=== PATIENT | male | born 1975 | race Caucasian/White ===

== ENCOUNTER → 2018-01-08 12:06 | Outpatient (CLI) | payer BC, SELFPAY ==
[2018-01-08 14:25] LABS: Hematocrit 42.1 % (40-54); Hemoglobin 14.2 g/dl (13.0-16.5); Mean Corp Hgb Conc 33.7 g/gl (32-36); Mean Corpuscular Hgb 29.2 pg (27.0-32.0); Mean Corpuscular Volume 86.6 fL (80-94); Mean Platelet Vol. 10.5 fl (6.2-12.0); Platelet Count 253 K/mm3 (150-450); RBC Distribution Width CV 14.5 % (11.6-14.6); RBC Distribution Width SD 46.1 fl (35.1-43.9); Red Blood Count 4.86 M/mm3 (4.6-6.2)
[2018-01-08 14:26] LABS: Scan Indicated on CBC? Y/N NO
[2018-01-08 14:49] LABS: ALB/GLOB Ratio 1.3 RATIO (0.9-2.4); AST(SGOT) 15 U/L (15-37); Alanine Aminotransfer ALT/SGPT 30 U/L (16-61); Albumin, Serum 3.3 g/dL (3.2-5.0); Alkaline Phosphatase 45 U/L (45-117); Anion Gap 7 (5-15); BUN 22 mg/dL (7-18); BUN/Creat Ratio 13.3 RATIO (10-20); Calcium,Total 8.4 mg/dL (8.5-10.1); Chloride 102 mmol/L (98-107); Creatinine, Serum 1.65 mg/dL (0.70-1.30); EST Glomerular Filtration Rate 49 mL/min (>60); Est Glom Filt Rate - Afr Amer 59 mL/min (>60); Free T3 2.8 pg/mL (2.18-3.98); Globulin 2.6 g/dL (2.2-4.2); Glucose 92 mg/dL (74-106); Potassium 3.7 mmol/L (3.5-5.1); Protein, Total 5.9 g/dL (6.4-8.2); Sodium Level 138 mmol/L (136-145); Thyroid Stim Hormone (TSH) 2.38 uIU/mL (0.358-3.74)
== END ==
PROVIDERS: Family Provider Family Medicine; PCP Family Medicine; Visit Provider Family Medicine
DX: I10 Essential (primary) hypertension (principal); E03.9 Hypothyroidism, unspecified
CPT/HCPCS: 36415; 80053; 84439; 84443; 84481; 85027

== ENCOUNTER → 2018-01-30 10:02 | Outpatient (CLI) | payer BC, SELFPAY ==
--- NOTE | 2018-01-30 10:08 | ECHOD_ITS ---
Reason For Study: EDEMA Procedure This was a 2D Doppler, Color Flow transthoracic echocardiogram. The exam was of fair technical quality due to body habitus. Exam performed in department. Left Ventricle Normal LV size. Left ventricular systolic function is normal. The estimated ejection fraction is 65 %. Normal diastology for age. No regional wall motion abnormalities noted. Right Ventricle Normal RV size. Normal systolic function. Atria Normal left atrium. Normal right atrium. No doppler evidence for ASD. Mitral Valve There is no mitral annular calcification. Normal mitral valve. Trivial mitral valve insufficiency. Tricuspid Valve Normal tricuspid valve. Trivial tricuspid valve insufficiency. Right ventricular systolic pressure estimated to be 28 mmHg. Aortic Valve Trisinus/trileaflet aortic valve. Normal aortic valve. Pulmonic Valve The pulmonic valve is not well visualized. Great Vessels Normal sized aortic root. Pericardium/Pleural No pericardial effusion. MMode/2D Measurements & Calculations LVIDd: 4.8 cm IVSd: 1.1 cm Ao root diam: 3.1 cm LVIDs: 3.1 cm LVPWd: 1.0 cm RVDd: 3.5 cm FS: 35.0 % LAV(MOD-bp): 28.9 ml EDV(MOD-sp4): 87.9 ml SV(MOD-sp4): 57.0 ml LAV(MOD-bp) Indexed: 12.5 ml/m2 ESV(MOD-sp4): 30.9 ml LAV(MOD-sp2): 33.7 ml EF(MOD-sp4): 64.9 % LAV(MOD-sp4): 23.9 ml LA A4 area: 12.4 cm2 RA A4 area: 10.7 cm2 Time Measurements MV dec time: 0.23 sec Doppler Measurements & Calculations MV E max flakito: 97.5 cm/sec Lat Peak E' Flakito: 15.7 cm/sec Med Peak E' Flakito: 10.7 cm/sec MV A max flakito: 77.5 cm/sec E/E' lat: 6.2 E/E' med: 9.1 MV E/A: 1.3 Ao V2 max: 148.1 cm/sec LV V1 max: 126.2 cm/sec PA V2 max: 140.1 cm/sec Ao max P.8 mmHg LV V1 max P.4 mmHg TR max flakito: 250.9 cm/sec TR max P.3 mmHg Interpretation Summary Left ventricular systolic function is normal. The estimated ejection fraction is 65 %. Trivial mitral valve insufficiency. Trivial tricuspid valve insufficiency. Right ventricular systolic pressure estimated to be 28 mmHg. Normal diastology for age. Ordering Physician: Garret Martínez Referring Physician: vEer Martínez Performed By: Kacy Louis RDCS
== END ==
PROVIDERS: Family Provider Family Medicine; PCP Family Medicine; Visit Provider Family Medicine
DX: R60.0 Localized edema (principal)
CPT/HCPCS: 93306

== ENCOUNTER → 2018-07-22 11:30 | Outpatient (CLI) | payer BC, SELFPAY ==
[2018-07-22 14:37] LABS: Vitamin D,25 Hydroxy 62.1 ng/mL (29.95-100.01)
[2018-07-22 14:40] LABS: Anion Gap 9 (5-15); BUN 25 mg/dL (7-18); BUN/Creat Ratio 16.1 RATIO (10-20); Chloride 104 mmol/L (98-107); Cholesterol 139 mg/dL (200); Creatinine, Serum 1.55 mg/dL (0.70-1.30); EST Glomerular Filtration Rate 52 mL/min (>60); Est Glom Filt Rate - Afr Amer 63 mL/min (>60); Glucose 103 mg/dL (74-106); High Density Lipoprotein 47 mg/dL; Potassium 4.4 mmol/L (3.5-5.1); Sodium Level 135 mmol/L (136-145); Thyroid Stim Hormone (TSH) 0.69 uIU/mL (0.358-3.74); Triglycerides 128 mg/dL; Very Low Density Lipoprotein 26 mg/dL (5-40)
== END ==
PROVIDERS: Family Provider Family Medicine; PCP Family Medicine; Visit Provider Family Medicine
DX: I10 Essential (primary) hypertension (principal); E03.9 Hypothyroidism, unspecified; E55.9 Vitamin D deficiency, unspecified
CPT/HCPCS: 36415; 80048; 80061; 82306; 84443

== ENCOUNTER 2019-01-01 06:34 | Day surgery (SDC) | payer BC, SELFPAY ==
[2019-01-01 07:08] VITALS: BP 114/78; PULSE 77; RESP 18; TEMP 36.5; O2SAT 95; BMI 37.9
--- NOTE | 2019-01-01 07:48 | OP.PCM_ITS ---
Problem List (1) Disorder of both eustachian tubes Status: Chronic (2) Chronic serous otitis media of left ear Status: Chronic (3) Conductive hearing loss in left ear Status: Chronic Report of Operation Date of Procedure: 01/01/19 Pre-Operative Diagnosis: chronic serous effusion left ear with conductive hearing loss, ET dysfunction Post-Operative Diagnosis: same Surgery/Procedure Performed:: Bilateral t-tube placement Description of Surgical Findings:: Carson is a 43-year-old male with long-standing history of eustachian tube dysfunction and recurrent middle ear effusions. This is been successfully treated in the past with myringotomy tube placement. Since the loss of the tube on the left he had recurrent effusion with significant conductive hearing loss. Examination showed a retained T-tube in the right side with significant debris and crusting and replacement with bilateral T tubes was offered in hopes of long-term relief of his chronic middle ear disease. The risks, alternatives, potential complications, and benefits were discussed at length and any questions answered to the patient and/or caregiver's satisfaction. Witnessed informed consent was obtained in the office, and the patient and/or caregiver was agreeable to proceed. Procedure went as follows: The patient was identified in the preoperative holding and brought to the operating room, and placed under general anesthesia. When appropriate anesthesia was obtained, the operative microscope was brought into the field and beginning on the right side the external auditory canal and tympanic membrane visualized. This is noted to be with the retained Silastic T- tube. This was then withdrawn with an alligator forceps and replaced with a fresh Mikhail ET tube. On the left side there is noted to be an opacified tympanic membrane. A myringotomy was then placed and serous effusion aspirated from the middle ear cleft. Again a T-tube was then placed. The patient was then returned to anesthesia, revived and returned to recovery without complication. Type of Anesthesia:: Sedation,Conscious Anesthesiologist: Jose Argueta Special Medications: none Specimen's removed: none Drains: none Estimated Blood Loss (mL): 0 mL Fluids Replaced: 0 mL Grafts/Implants Used: T-tubes - Complications none - Admit VTE Documentation VTE Present on Admission: No VTE Mechan Device Prophylaxis: SCD's, None VTE Pharm Prophylaxis ordered?: No
--- NOTE | 2019-01-01 07:55 | DCINST_ITS ---
Discharge Diet: No Restrictions Discharge Activity: Return to Normal Activity Call your doctor if your incision/area has: Continuous Slow Oozing Call your doctor if you observe: Fever of 101 or Higher, Uncontrolled pain Allergies/Adverse Reactions: Allergies No Known Allergies Allergy (Verified 12/28/18 10:51) Medications to take at Discharge Buprenorphine HCl/Naloxone HCl [Suboxone 2 mg-0.5 mg Sl Film] 1 each SL DAILY 12/28/18 Fenofibrate,Micronized [Fenofibrate] 134 mg PO DAILY 12/28/18 RX: Ibuprofen 1 - 2 tab PO DAILY 12/28/18 RX: Lisinopril 40 mg PO DAILY 12/28/18 RX: Omeprazole 40 mg PO QHS 12/28/18 RX: Tizanidine HCl [Zanaflex] 4 mg PO QHS 12/28/18 RX: traZODone [Desyrel] 50 mg PO QHS 12/28/18 Primary Care Physician: Ever Martínez MD [Primary Care Provider] - Test Results: Test results from this visit will be discussed in further detail at your follow- up appointment, if applicable. Please Follow Up With: Onofre Lyn MD When: 2 weeks
[2019-01-01] MEDS: Oxymetazoline 0.05% 1 SPRAY SPRAY.BTL 15 SPRAY (08:01)
[2019-01-01 08:12] VITALS: BP 114/78; BP 120/59; PULSE 85; RESP 16; TEMP 36.2; O2SAT 94
[2019-01-01 08:29] VITALS: BP 113/67; BP 114/78; PULSE 80; RESP 16; O2SAT 96
[2019-01-01 08:35] VITALS: BP 102/79; BP 114/78; PULSE 80; RESP 16; TEMP 35.9; O2SAT 95
[2019-01-01 08:52] VITALS: BP 114/78
== END 2019-01-01 08:55 | disposition home or self-care (01) ==
LOC: SDC 06:41 → AC 06:42
PROVIDERS: Family Provider Family Medicine; PCP Family Medicine; Referring Provider Otolaryngology; Visit Provider Otolaryngology
PROC: (CPT 69436; principal; 2019-01-01 07:55)
DX: H65.22 Chronic serous otitis media, left ear (principal); H90.72 Mixed conductive and sensorineural hearing loss, unilateral, left ear, with unrestricted hearing on the contralateral side; H69.93 Unspecified Eustachian tube disorder, bilateral; F17.200 Nicotine dependence, unspecified, uncomplicated; I10 Essential (primary) hypertension; E78.00 Pure hypercholesterolemia, unspecified; K21.9 Gastro-esophageal reflux disease without esophagitis; Z79.899 Other long term (current) drug therapy
CPT/HCPCS: 00126; 69436; J7120; J2405

== ENCOUNTER → 2019-04-15 08:21 | Outpatient (CLI) | payer BC, SELFPAY ==
[2019-02-25 14:33] VITALS: BMI 38.7
--- NOTE | 2019-04-15 08:22 | RAD_ITS ---
Under fluoroscopic control and following appropriate aseptic preparation and local anesthesia, a 22-gauge spinal needle was used to enter the hip joint but unfortunately failed ,as contrast obscured the area so this is to be rescheduled at a later time. Electronically Signed: Adolph Juarez, at 15:12 EDT Tel , Service support , RAD/Inj/Asp Mal Jt Should/Hip/Knee
== END ==
PROVIDERS: Family Provider Family Medicine; PCP Family Medicine; Referring Provider Orthopaedic Surgery; Visit Provider Orthopaedic Surgery
DX: M87.051 Idiopathic aseptic necrosis of right femur (principal); Z53.09 Procedure and treatment not carried out because of other contraindication
CPT/HCPCS: 20610; 77002; J0702

== ENCOUNTER 2019-06-02 05:38 | Observation (INO) | payer BC, SELFPAY ==
[2019-02-25 14:33] VITALS: BMI 38.7
--- NOTE | 2019-05-18 21:50 | PCM.HP.BLA ---
History and Physical Patient Name: Cedric Del Toro : 1975 From: EVI KELLY PA-C DATE OF SURGERY: 06/02/2019 SCHEDULED PROCEDURE: right total hip arthroplasty HISTORY OF PRESENT ILLNESS: Preoperative history and physical exam was performed on May 17, 2019. This is a 44-year-old male who has been having ongoing pain for the past 3-4 months which has progressively been getting worse. He does complain of bilateral hip pain. Patient states his pain is constant, sharp, stabbing. Pain is increased with stairs, driving, walking, and working. Patient has tripped/stumbled secondary to bilateral hip pain. Patient has tried rest, ice, heat, elevation with no relief. Patient has tried physical therapy, home exercises, and managed care manager with no relief in symptoms. Patient denies previous surgery on bilateral hips. Denies any recent fevers, chills, recent infections. Patient has also tried prednisone with no relief as well as ibuprofen. Patient did have an MRI which does show bilateral hip avascular necrosis. After discussion with Dr. Geovanni Berry, the patient does wish to proceed with a right total hip arthroplasty. We are obtaining surgical clearance from patient's primary care physician. Patient has a medical history pertinent for hypertension and fibromyalgia. He also has previous history with form or illegal drug using pain pills. Patient currently sees Dr. Ferguson and is currently on Suboxone. We are in contact with patient's physician with regards to postoperative pain management. REVIEW OF SYSTEMS: ROS: Const: Reports weight change, but denies change in appetite and fever. CV: Denies chest pain, heart murmur and irregular heartbeat. Resp: Denies cough, pneumonia, shortness of breath, tuberculosis and wheezing. GI: Denies constipation, diarrhea, heartburn, nausea, rectal itching, bloody stools and vomiting. : Denies incontinence. Musculo: Reports leg swelling, pain, trouble walking and weakness. Skin: Denies Raynaud's, history of shingles and tattoo. Neuro: Reports ambulatory dysfunction and numbness/tingling but denies dizziness and tremor. Psych: Reports insomnia and stress, but denies anxiety. Onofre/Lymph: Denies anemia, bleeding/bruising tendency and past transfusion. Reviewed, no changes. PAST MEDICAL HISTORY: Advance Care Plan: No Advance Directives Effective Date: 03/30/2019 PMH: Medical Problems: Arthritis, Fibromyalgia, High Blood Pressure, Hypercholesterolemia Accidents: None Surgical Hx: RT Shoulder Rotator Cuff Repair - (2012) RT Forearm ORIF Anesthesia Complications: None Assistive Devices: Contacts, Glasses Reviewed and updated. 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 Personal Habits: Cigarette Use: Light tobacco smoker (10 or fewer cigarettes/day).Smokeless Tobacco: Never Used Smokeless Tobacco.E-Cigarette Use: Never used.Alcohol: Denies use.Drug Use: Former Illegal Drug User - pain pills .Enjoy Exercising: Exercises 1-3 X/Week. Reviewed, no changes. VITALS: Ht: 70 Wt: 257lb Wt k.575 BMI: 36.9 BP: 134/92 Pulse: 80 T: 96.9 T: 36.1C ALLERGIES: No Known Drug Allergy MEDICATIONS: Promethazine HCL 12.5 mg 1-2 tablets by mouth every 6 hours, Famotidine 20 mg 1 by mouth every day, Celebrex 200 mg 1 by mouth every 12 hours with food, Ibuprofen 800 mg 1 by mouth prn, Lisinopril 40 mg 1 by mouth every day, Fenofibrate Micronized 134 mg 1 daily, Cyclobenzaprine HCL 10 mg 2 daily, Trazodone HCL 50 mg 1 tab by mouth daily, Suboxone 2-0.5 mg daily PRE-OP EXAM: General appearance:NORMAL Other: Eyes: Conjunctivae and lids: NORMAL Pupils: ERR Ears, Nose, Mouth, and Throat: NORMAL Other: Inspection of lips, teeth and gums: NORMAL Other: Neck: Examination of neck: no masses noted. Respiratory: Assessment of respiratory effort: NORMAL Other: Auscultation of lungs: clear to auscultation no wheezes, rhonchi or rales. Cardiovascular: Auscultation of heart: regular rate and rhythm, no murmurs, gallops or rubs. Gastrointestinal: Exam of abdomen: soft, nontender, nondistended bowel sounds present. PHYSICAL EXAMINATION: Patient walks with an antalgic gait. Patient has increased pain with range of motion of the right hip which does increase his groin pain. This is appreciated on passive range of motion. Patient does complain of pain with weightbearing. Hip flexion 90. Sensation intact to light touch. Neurovascularly intact. IMAGING STUDIES: MRI was obtained at [facility] [place] on April 06, 2019 which did reveal bilateral hip avascular necrosis with the right being greater than the left. IMPRESSION: 1. Bilateral hip avascular necrosis 2. Hypertension 3. Fibromyalgia 4. Hypercholesterolemia 5. History of illegal drug use with pain pills: Currently on Suboxone PLAN: Dr. Geovanni Berry did discuss and review with the patient all treatment options including surgical versus nonsurgical options. Patient does wish to proceed with the above-stated procedure. Potential risks, benefits, and complications of the procedure were discussed in detail including but not limited to , infection, nerve and blood vessel damage, persistent pain, numbness, tingling, paresthesias, blood clot, pulmonary embolism, and requirement for possible further surgery. The patient expressed full understanding and has no further questions for the doctor. Patient does agree to proceed with the above-stated procedure and has signed the surgery consent form. We are obtaining surgical clearance from the primary care physician. We are also in discussion with patient's physician who manages the Suboxone as far as postoperative pain management. This dictation was created using voice recognition software. Phonetic and/or grammatical errors may exist.. ___ I have re-examined the patient. There are no clinical changes since date of exam. ___ See progress notes for changes. ___ Dictated on admission Date: Time: Signature:
[2019-05-20 15:29] VITALS: BP 123/80; PULSE 80; RESP 16; TEMP 36.1; O2SAT 97; BMI 36.3
--- NOTE | 2019-05-20 15:53 | SDCEKG_ITS ---
Test Reason : Blood Pressure : / mmHG Vent. Rate : 082 BPM Atrial Rate : 082 BPM P-R Int : 156 ms QRS Dur : 086 ms QT Int : 360 ms P-R-T Axes : 016 033 056 degrees QTc Int : 420 ms Normal sinus rhythm Normal ECG Confirmed by GLEN GARCIA, SHILPI ([id number]), editor continuity and script BRANDY HIGUERA ([id number]) on 05/24/2019 1:07:32 PM Referred By: Geovanni Berry Confirmed By:AKILA CARROLL MD
[2019-05-20 16:31] LABS: Absolute Lymphocyte Count 2.93 X10^3/uL (0.83-4.51); Absolute Neutrophil Count 4.6 X10^3/uL (2.0-7.7); Basophil# 0.03 X10^3/uL; Basophil% 0.4 % (0-1); Eosinophil# 0.08 X10^3/uL; Hematocrit 47.2 % (40-54); Hemoglobin 16.3 g/dL (13.0-16.5); Lymphocyte # 2.93 X10^3/ul (4.0); Mean Corp Hgb Conc 34.5 g/dL (32-36); Mean Corpuscular Hgb 29.4 pg (27.0-32.0); Mean Platelet Vol. 9.9 fl (6.2-12.0); Monocyte# 0.72 X10^3/uL; Monocyte% 8.6 % (0-10); NRBC Flagged by Analyzer 0 % (0-5); Neutrophil # 4.59 X10^3/uL (2.7-7.7); Neutrophil % 54.9 % (47-70); Platelet Count 307 K/mm3 (150-450); RBC Distribution Width CV 12.8 % (11.6-14.6); RBC Distribution Width SD 39.5 fl (35.1-43.9); Red Blood Count 5.55 M/mm3 (4.6-6.2); White Blood Count 8.4 K/mm3 (4.4-11.0)
[2019-05-20 16:55] LABS: Anion Gap 9 (5-15); BUN 28 mg/dL (7-18); BUN/Creat Ratio 15.9 RATIO (10-20); Calcium,Total 9.6 mg/dL (8.5-10.1); Chloride 103 mmol/L (98-107); Creatinine, Serum 1.76 mg/dL (0.70-1.30); EST Glomerular Filtration Rate 45 mL/min (>60); Est Glom Filt Rate - Afr Amer 55 mL/min (>60); Estimated Creatinine Clearance 55.88 ml/min; Glucose 101 mg/dL (74-106); Potassium 4.3 mmol/L (3.5-5.1); Sodium Level 140 mmol/L (136-145)
--- NOTE | 2019-05-28 11:34 | CASEMGMT ---
Call placed to patient to discuss discharge needs after upcoming surgery. Patient plans to return home and will have assistance most of the time but not all of the time. Patient has outpatient physical therapy set up at [facility], will ask mother about assistance with transportation to/from PT. Patient does not have a walker, toilet riser, shower seat, or grab bars yet. Patient does not have a bedroom/bathroom on the 1st level of the home. There are approximately 3 steps to enter home. Informed patient that RN-CM will likely follow up after surgery to further assist with discharge planning. Barbie Moss LPN Clinical Support
[2019-06-02] VITALS (17 sets, daily range): BP systolic 115–145; BP diastolic 60–104; PULSE 70–86; RESP 14–18; TEMP 36.1–37; O2SAT 95–100; BMI 36.3
[2019-06-02] MEDS: Magnesium Sulfate 4gm/100mL 4 GM/100 ML IV.SOLN. IV (06:35)
[2019-06-02] MEDS: Acetaminophen 500 MG Tablet 1000 MG PO ×3 (06:35→21:51)
[2019-06-02] MEDS: Gabapentin 600 MG Tablet PO (06:36)
[2019-06-02] MEDS: Celecoxib 200 MG Capsule 400 MG PO (06:37)
[2019-06-02] MEDS: Scopolamine 1mg/72hr Patch 1 PATCH TRANSDERM. (06:38)
[2019-06-02] MEDS: Lactated Ringers 1,000 ML 999 ML IV (07:10)
--- NOTE | 2019-06-02 07:30 | HIP_PTH ---
PATIENT: YURI LANDERS Jr. LOC: MS3 U#:[id number] AGE/SX: 44/M ROOM: NE324 RE06/02/[address]: Dr. Geovanni Berry MD : 1975 BED: 1 DIS: 06/03/2019 SPEC #: [id number] RECD: 06/02/19 11:07 STATUS: YAMIL REEmerson #: [id number] JOSE A: 06/02/19 07:[address]: Geovanni Berry DEPT: SURGICAL PATHOLOGY RECD BY: Noah Gomez ENTERED: 06/02/19 13:09 SP TYPE: TOTAL HIP OTHR DR: Dr. Garret Martínez MD Tissues: Hip, NOS Procedures: Decalcification bone/plaque Surgery Specimen Level IV HEADER OPERATION: ERAS, total hip anterior approach PRE-OP DIAGNOSIS: Bilateral hip avascular necrosis TISSUE SUBMITTED: Femoral head MICROSCOPIC DIAGNOSIS Femoral head, total hip replacement/resection: Femoral head with focal changes consistent with avascular necrosis. LINDA:lauryn 06/07/19 MICROSCOPIC DESCRIPTION Slides are reviewed. GROSS DESCRIPTION Received in fixative is one container labeled with the patient's name and designated femoral head. The specimen consists of a previously bisected femoral head measuring 5 x 4 x 4.5 cm. The articular surface is smooth. The resection margin is slightly irregular. The cut surface of femoral head shows a nicole-whitish area almost occupying 90% of the cut surface consistent with avascular necrosis. Also present in the container is a detached piece of bone consistent with femoral neck measuring 3.5 x 3.5 x 1 cm. Also present in the container are multiple pieces of bone reamings measuring in aggregate 6 x 6 x 2 cm. Cell Lead sections are submitted in three cassettes as follows: 1 - bone reamings, 2 & 3 - femoral head after decalcification. / LINDA:lauryn 06/02/19 TC:5 CPT: 05633, 14288
[2019-06-02] MEDS: Cefazolin 2 GM in 0.9% Normal Saline 100 ML IV (07:49)
--- NOTE | 2019-06-02 08:41 | RAD_ITS ---
STUDY: X-RAY - PELVIS AND RIGHT HIP REASON FOR EXAM: Male, 44 years old. Anterior total hip replacement. TECHNIQUE: 3 intraoperative views views of the pelvis and hip. COMPARISON: None. FINDINGS: Intraoperative imaging provided for right anterior hip replacement. There is good alignment. RAD/Hip 1 view with Pelvis IMPRESSION: Anterior hip replacement. There is good alignment. Electronically Signed: Calvin Douglas, at 15:33 EDT , Service support ,
--- NOTE | 2019-06-02 09:26 | OP.PCM_ITS ---
Report of Operation Date of Procedure: 06/02/19 Pre-Operative Diagnosis: Right hip avascular necrosis Post-Operative Diagnosis: Right hip avascular necrosis Surgery/Procedure Performed:: Right direct anterior total hip replacement Description of Surgical Findings:: Stable hip with equal leg lengths public relations officer: Li Raymond Type of Anesthesia:: Spinal Anesthesiologist: Hipolito Larry Special Medications: 2 g Ancef, 1 g TXA at incision, 1 g TXA closure, 10 mg Decadron, joint cocktail (5 mg Duramorph, 30 mL of 0.5% Ropivicaine, 1000 units of epinephrine, 30 mg of Toradol) Specimen's removed: Bony cuts Estimated Blood Loss (mL): 250 Fluids Replaced: 1300 mL crystalloid Description of Procedure: Components used: 1. Accolade 2 Black femoral stem size 7 127? 2. [place] trident 2 acetabular shell size 52 mm 3. Black X3 polyethylene E 4. [place] Biolox delta 36-mm,2.5]mm femoral head Brief history operative indications: 44 yo m who failed conservative measures for their hip osteonecrosis. MRI findings consistent with femoral head collapse. Total hip replacement was discussed with the patient with risks and benefits including but not limited to blood loss, DVTs, PEs, neurovascular damage, dislocation, general risks of anesthesia including loss of life. Patient demonstrated an understanding medical clearance is obtained the patient was consented for surgery. Procedure: On the date of procedure the patient's R hip was marked in the preoperative area. Patient was then taken back to the operating room where anesthesia assumed control of the C-spine and airway and administered anesthetic. Patient was transferred to the operating table and placed in the supine position. The hips were placed at the break of the bed and a sacral bump was placed. The R lower extremity was then prepped out in a sterile fashion using chlorhexidine while the surgeon scrubbed. The PA was vital in the positioning of the patient. Upon reentering the room the R lower extremity was draped in the standard orthopedic fashion and the incision was marked. A timeout was called and everyone agreed upon the side, the site, the procedure be performed, antibody given, and patient's identity. At this time incision was made through skin, subcutaneous tissue, and fat down to fascia. The fascia was then incised and the TFL was retracted laterally. A retractor was placed on the lateral border of the femoral neck. Attention was directed to the inferior portion of the approach and all crossing vessels were identified and appropriately coagulated. A retractor was then placed on the medial portion of the femoral neck. The ante rior capsule was then cleared of all soft tissue and then H shaped capsulotomy was made. The retractors were then placed inside the capsule. The femoral neck was identified and a cleanup cut was made. At this time a power corkscrew was used to remove the femoral head. Attention was then turned toward the acetabulum where the soft tissues were appropriately retracted and the acetabulum was sequentially reamed to 52 mm. A 52 mm cup was then selected and impacted into place. Acetabular liner was impacted into place and locking mechanism was verified. The position of the acetabular cup was then verified under live fluoroscopy. Attention was then turned to the femur. Soft tissue releases on the medial and lateral femoral neck were appropriately done, the leg was externally rotated and lateralized. A Tinoco retractor was placed medially and proximally to the greater trochanter this allowed appropriate visualization and exposure of the femoral canal. Rongeour was then used to remove excess lateral bone. A canal finder and entry broach were used to open the proximal canal. Once we verified we were down the femoral canal we subsequently broached up to a size 7 femur. The appropriate neck was placed in the previously selected head was trialed with a -2.5 mm neck. Traction was pulled and the hip was reduced with internal rotation. Once it was appropriately reduced and stability was checked. There was minimal shuck, equal leg lengths and appropriate stability with hyperextension and external rotation as well as with 90? flexion and internal rotation. Fluoroscopy was then also used to verify the position of the components and leg lengths using the contralateral side for comparison. The trial components were then dislocated the proximal femur was again exposed a nd the components were removed from the wound. The final components were verified and opened. The wound was copiously irrigated out with normal saline. The acetabulum was checked for any residual debris. The final components were placed and impacted. Traction and internal rotation were again used to reduce the hip. After adequate reduction the hip remained stable with appropriate leg lengths. The final components were once again checked with live fluoroscopy and were found to be satisfactory. The wound was then copiously irrigated with normal saline once more, and hemostasis was obtained. Closure was then done using #1 Vicryl runner to close the fascia. A 2-0 vicryl interuppted sutures were used to close the subcutaneous skin. A 3-0 Monocryl and Steri-Strips were used for final skin closure. A Silverlon dressing was placed. Patient was awakened by anesthesia and transferred to the [facility]. Patient was then transferred to the PACU for recovery. Postoperative plan: Patient will get 24 hours postop antibiotics. Patient will get in-house physical therapy and will be weight-bear as tolerated. Patient will follow up in office in 2 weeks for a wound check and x-rays. Grafts/Implants Used: Black - Complications No intraoperative complications - Admit VTE Documentation VTE Present on Admission: No VTE Mechan Device Prophylaxis: SCD's, Thigh High BASIA Hose VTE Pharm Prophylaxis ordered?: Yes
--- NOTE | 2019-06-02 10:10 | RAD_ITS ---
STUDY: X-RAY - PELVIS AND RIGHT HIP REASON FOR EXAM: Male, 44 years old. Anterior hip replacement. TECHNIQUE: 3 views of the pelvis and hip. COMPARISON: None. FINDINGS: The patient is status post right anterior hip replacement. There is good alignment. Postoperative soft tissue changes. RAD/Hip Min 2 Views (Portable) IMPRESSION: Status post anterior hip replacement. There is good alignment. Postoperative soft tissue changes. Electronically Signed: Calvin Douglas, at 15:40 EDT , Service support ,
[2019-06-02 11:33] LABS: Bedside Glucose 121 mg/dL (70-110)
[2019-06-02] MEDS: oxyCODONE 5 MG Tablet PO ×3 (11:37→21:50)
[2019-06-02] MEDS: Lactated Ringers 1,000 ML 125 ML IV (12:11)
[2019-06-02] MEDS: Morphine 2 MG/ML Syringe IV ×4 (12:16→23:51)
--- NOTE | 2019-06-02 12:51 | NURSING ---
1140-patient arrived to floor from PACU. upon wound assessment-mepilex dressing saturated with water from [facility] to end near groin. new mepilex dressing applied. steri-strips intact, no active drainage noted to incision. will monitor.
[2019-06-02] MEDS: Ketorolac 15 MG/ML Vial IV ×2 (15:23→21:50)
[2019-06-02] MEDS: Ensure Surgery 237 ML LIQUID PO (17:18)
[2019-06-02] MEDS: Aspirin 81 MG TAB.CHEW PO (17:19)
[2019-06-02] MEDS: Cefazolin 1 GM/50 ML BAG IV ×2 (17:22→23:46)
[2019-06-02] MEDS: 0.9% NaCl Peripheral Flush Adult/Peds IV ×2 (21:49→23:51)
[2019-06-02] MEDS: traZODone 50 MG Tablet PO (21:52)
[2019-06-02] MEDS: Pantoprazole Sodium 40 MG Tablet PO (21:52)
[2019-06-03] MEDS: oxyCODONE 5 MG Tablet PO ×2 (02:36→06:35)
[2019-06-03 03:00] VITALS: BP 116/77; PULSE 81; RESP 18; TEMP 36.5; O2SAT 97
[2019-06-03] MEDS: Ketorolac 15 MG/ML Vial IV (03:41)
[2019-06-03] MEDS: 0.9% NaCl Peripheral Flush Adult/Peds IV ×2 (03:41→08:25)
[2019-06-03] MEDS: Acetaminophen 500 MG Tablet 1000 MG PO (05:09)
[2019-06-03 06:20] LABS: Hematocrit 37.4 % (40-54); Hemoglobin 12.9 g/dL (13.0-16.5); Mean Corp Hgb Conc 34.5 g/dL (32-36); Mean Corpuscular Hgb 29.5 pg (27.0-32.0); Mean Corpuscular Volume 85.4 fL (80-94); Mean Platelet Vol. 10.2 fl (6.2-12.0); Platelet Count 255 K/mm3 (150-450); RBC Distribution Width SD 39.8 fl (35.1-43.9); Red Blood Count 4.38 M/mm3 (4.6-6.2); White Blood Count 26.1 K/mm3 (4.4-11.0)
[2019-06-03 06:42] LABS: Anion Gap 8 (5-15); BUN 20 mg/dL (7-18); BUN/Creat Ratio 12.7 RATIO (10-20); Calcium,Total 8.8 mg/dL (8.5-10.1); Chloride 107 mmol/L (98-107); Creatinine, Serum 1.58 mg/dL (0.70-1.30); EST Glomerular Filtration Rate 51 mL/min (>60); Est Glom Filt Rate - Afr Amer 62 mL/min (>60); Estimated Creatinine Clearance 62.25 ml/min; Glucose 119 mg/dL (74-106); Potassium 4.7 mmol/L (3.5-5.1); Sodium Level 139 mmol/L (136-145)
[2019-06-03 08:20] VITALS: BP 125/80; PULSE 75; RESP 16; TEMP 36.8; O2SAT 98
[2019-06-03] MEDS: Morphine 2 MG/ML Syringe IV (08:24)
[2019-06-03] MEDS: Famotidine 20 MG Tablet PO (08:26)
[2019-06-03] MEDS: Senna/Docusate Sodium 1 Tablet 2 TABLET PO (08:27)
[2019-06-03] MEDS: Lisinopril 40 MG Tablet PO (08:27)
[2019-06-03] MEDS: Meloxicam 7.5 MG Tablet PO (08:27)
[2019-06-03] MEDS: Aspirin 81 MG TAB.CHEW PO (08:27)
[2019-06-03] MEDS: Fenofibrate 145 MG Tablet PO (08:28)
--- NOTE | 2019-06-03 08:29 | NURSING ---
Therapy came to see pt. Morphine given per pt request for 8 out of 10 pain. Pt walking to therapy at this time.
--- NOTE | 2019-06-03 09:31 | PCM.PN.ORT ---
Subjective: The patient was sitting in bedside chair upon examination. Patient denies any chest pain, shortness of breath, dizziness, lightheadedness, nausea or vomiting, or calf pain. Pain is controlled on medications. No adverse overnight events. Overall patient is doing well. Patient will be discharged home today. Patient has previous history as a former illegal drug user using pain pills. He is currently seeing Dr. Ferguson and is currently on Suboxone. Case was discussed with Dr. Ferguson and he will be managing patient's postoperative pain medications. Patient has prescription for postoperative pain control. Objective: Vital signs stable and afebrile. Patient is able to plantarflex and dorsiflex actively. Sensation is intact to light touch to saphenous, sural, superficial and deep peroneal, and tibial distribution. Dressing is clean dry and intact. Negative Homans bilaterally, negative signs and symptoms of DVT. - Physical Exam General: Alert, Oriented x3, Cooperative, No apparent distress Vital Signs Temp Pulse Resp BP Pulse Ox 98.3 F 75 16 125/80 H 98 06/03/19 08:20 06/03/19 08:20 06/03/19 08:20 06/03/19 08:20 06/03/19 08:20 Oxygen Flow Rate (L/min) 6 Oxygen Delivery Method Room Air Weight: 115.1 kg Body Mass Index (BMI) 36.3 Intake and Output for Last 24 Hours 06/01/19 06/02/19 06/03/19 23:59 23:59 23:59 Intake Total 2957 / 2957 420 / 420 Output Total 900 / 900 Balance 2056 / 2056 420 / 420 Laboratory Tests Past 24 Hrs 06/03/19 06/03/19 06:12 06:12 WBC 26.1 H RBC 4.38 L Hgb 12.9 L Hct 37.4 L MCV 85.4 MCH 29.5 MCHC 34.5 RDW Std Deviation 39.8 RDW Coeff of Lester 13.0 Plt Count 255 MPV 10.2 Sodium 139 Potassium 4.7 Chloride 107 Carbon Dioxide 24.0 Anion Gap 8 BUN 20 H Creatinine 1.58 H Estim Creat Clear Calc 62.25 Est GFR (MDRD) Af Amer 62 Est GFR (MDRD) Non-Af 51 L BUN/Creatinine Ratio 12.7 Glucose 119 H Calcium 8.8 POC Glucose 06/02/19 06:20 POC Glucose 121 H Medical Necessity - Tobacco Use Smoking Status: Current every day smoker Tobacco Use: Cigarettes Assessment/Plan All Active Problems (Last Reviewed 03/23/19 @ 15:39 by Cristine Lyn) Segmental and somatic dysfunction of thoracic region (Acute) Segmental and somatic dysfunction of pelvic region (Acute) Segmental and somatic dysfunction of lumbar region (Acute) 1. S/P right total hip arthroplasty direct anterior approach POD #1 2. Continue Pain Medications: Currently Tylenol and OxyIR. Patient is on Suboxone and is currently managed by Dr. Ferguson area 3. DVT Prophylaxis: Aspirin 81 mg twice daily for 4 weeks postoperatively 4. PT/OT: Weightbearing as tolerated 5. H & H: 12.9/37.4, asymptomatic 6. Reactive leukocytosis: Currently 26.1, afebrile. Patient did receive Decadron intraoperatively. No history of diabetes. 7. Encouraged Incentive Spirometry 8. Disposition: Orthopedically stable, plan will be for discharge home today. Prescriptions will be attached to chart. Patient will follow Dr. Ferguson with regards to his postoperative pain medications. This was discussed with Dr. Thomas prior to surgery and he has already given patient prescriptions. Patient will follow-up per postop instructions. Outpatient physical therapy is established.
--- NOTE | 2019-06-03 09:42 | DCINST_ITS ---
Discharge Diet: No Restrictions Discharge Activity: May Not Drive - while taking narcotic pain medications. May shower in (days): 1 - Turn dressing away from water Ice area for (Minutes): 20 - Every 1-2 hours while awake Weight Bearing Status: Weight bearing as tolerated Elevate: Operative Extremity Additional Activity Instructions:: Wear elastic stockings for 2 weeks. DO NOT use alcohol with narcotic pain medication. DO NOT make important decisions while taking narcotic medication. If you have problems with taking your medication (rash, itching, nausea, etc.) call the office at once. Call your doctor if your incision/area has: Increased Pain/ Swelling, Increased Redness, Foul Smelling Discharge Call your doctor if you observe: Fever of 101 or Higher Remove Dressing in (days):: 4 - Okay to remove dressing on June 07, 2019 Additional Instructions: Follow [facility] postop instructions Pain medications: Please contact Dr. Ferguson for any pain medications postoperatively. Allergies/Adverse Reactions: Allergies No Known Allergies Allergy (Verified 05/20/19 15:24) Medications to take at Discharge Buprenorphine HCl/Naloxone HCl [Suboxone 2 mg-0.5 mg Sl Film] 1 each SL DAILY 12/28/18 Fenofibrate,Micronized [Fenofibrate] 134 mg PO DAILY 12/28/18 Lisinopril 40 mg PO DAILY 12/28/18 Omeprazole 40 mg PO QHS 12/28/18 Tizanidine HCl [Zanaflex] 4 mg PO QHS 12/28/18 traZODone [Desyrel] 50 mg PO QHS 12/28/18 Ergocalciferol [Vitamin D] 50,000 unit PO Q7D 05/20/19 Acetaminophen [Tylenol] 1,000 mg PO Q8 14 Days tablet 06/03/19 Aspirin [Aspirin, Baby] 81 mg PO BIDCM #60 tab.chew 06/03/19 Meloxicam [Mobic] 7.5 mg PO BID #60 tab 06/03/19 The following prescriptions were given: Aspirin [Aspirin, Baby] 81 mg PO BIDCM #60 tab.chew Prescription Printed Meloxicam [Mobic] 7.5 mg PO BID #60 tab Prescription Printed Primary Care Physician: Ever Martínez MD [Primary Care Provider] - Test Results: Test results from this visit will be discussed in further detail at your follow- up appointment, if applicable. Please Follow Up With: physical Therapy When: 06/07/19 Please Follow Up With: Jackson Avalos PA-C When: 06/16/19 @ 10:30 am
== END 2019-06-03 09:59 | disposition home or self-care (01) ==
LOC: ACINP 06-04 09:10 → MS3 06-04 09:15
PROVIDERS: Admitting Provider Specialist; Family Provider Family Medicine; PCP Family Medicine; Referring Provider Specialist; Visit Provider Specialist
PROC: (CPT 27284; principal; 2019-06-02 07:05)
DX: M87.88 Other osteonecrosis, other site (principal); I10 Essential (primary) hypertension; M79.7 Fibromyalgia; E78.00 Pure hypercholesterolemia, unspecified; Z79.891 Long term (current) use of opiate analgesic; Z79.899 Other long term (current) drug therapy; F17.210 Nicotine dependence, cigarettes, uncomplicated; F45.0 Somatization disorder
CPT/HCPCS: 01214; 27130; 36415; 73501; 73502; 76000; 80048; 82962; 85025; 85027; 87081; 88305; 88311; 93005; 96361; 96365; 96366; 96375; 96376; 97110; 97161; 97166; 97530; 99218; 99251; 99406; C1776; J7120; A4216; G0378; G0463

== ENCOUNTER → 2020-07-18 16:23 | Outpatient (CLI) | payer OTHER, SELFPAY ==
[2020-06-12 17:09] VITALS: BMI 36.3
--- NOTE | 2020-07-18 16:24 | MRI_ITS ---
STUDY: MRI LUMBAR SPINE WITHOUT CONTRAST REASON FOR EXAM: Male, 45 years old. Low back pain, right leg and buttock pain TECHNIQUE: Standardized fat and water weighted pulse sequences were obtained in the sagittal and axial planes. COMPARISON: None FINDINGS: T12-L1: Normal endplates. Normal disc height, hydration and morphology. Normal bilateral facet joints. Normal central canal and bilateral lateral recesses. Normal bilateral intervertebral neural foramina. Normal lumbar lordosis. There is no substantial scoliosis. Normal conus medullaris that terminates at the L1 level. L1-2: Normal endplates. Normal disc height, hydration and morphology. Normal bilateral facet joints. Normal central canal and bilateral lateral recesses. Normal bilateral intervertebral neural foramina. L2-3: Normal endplates. Normal disc height, hydration and morphology. Normal bilateral facet joints. Normal central canal and bilateral lateral recesses. Normal bilateral intervertebral neural foramina. L3-4: No evidence of significant disc disease. Bilateral facet hypertrophy. No evidence of significant central canal or foraminal stenosis. L4-5: Bulging annulus and bilateral facet hypertrophy. Right foraminal disc protrusion with severe right and moderate left foraminal stenoses. There is mass effect on the exiting right L4 nerve root. L5-S1: No evidence of significant disc disease. Bilateral facet hypertrophy. No evidence of significant central canal or foraminal stenosis. Normal visualized sacral ala. Normal visualized paraspinous soft tissue structures. MRI/Spine Lumbar (Routine) IMPRESSION: Right foraminal disc protrusion at L4-5 with mass effect on the exiting right L4 nerve root. Electronically Signed: Aquiles Kumar MD at 17:29 EDT Tel , Service support ,
== END ==
PROVIDERS: PCP Family Medicine; Referring Provider Chiropractor; Visit Provider Chiropractor
DX: M47.816 Spondylosis without myelopathy or radiculopathy, lumbar region (principal); M99.03 Segmental and somatic dysfunction of lumbar region
CPT/HCPCS: 72148

== ENCOUNTER → 2020-08-23 08:49 | Outpatient (CLI) | payer OTHER, SELFPAY ==
[2020-08-15 16:30] VITALS: BMI 36.3
[2020-08-23 10:53] LABS: ALB/GLOB Ratio 1.2 RATIO (0.9-2.4); AST(SGOT) 16 U/L (15-37); Alanine Aminotransfer ALT/SGPT 42 U/L (16-61); Albumin, Serum 4.2 g/dL (3.2-5.0); Alkaline Phosphatase 76 U/L (45-117); Anion Gap 8 (5-15); BUN 26 mg/dL (7-18); Calcium,Total 9.2 mg/dL (8.5-10.1); Chloride 103 mmol/L (98-107); Creatinine, Serum 1.63 mg/dL (0.70-1.30); EST Glomerular Filtration Rate 49 mL/min (>60); Est Glom Filt Rate - Afr Amer 59 mL/min (>60); Globulin 3.5 g/dL (2.2-4.2); Glucose 100 mg/dL (74-106); Potassium 4.2 mmol/L (3.5-5.1); Protein, Total 7.7 g/dL (6.4-8.2); Sodium Level 135 mmol/L (136-145); Thyroid Stim Hormone (TSH) 5.23 uIU/mL (0.358-3.74)
[2020-08-24 09:58] LABS: Free T3 3.5 pg/mL (2.18-3.98)
== END ==
PROVIDERS: PCP Family Medicine; Referring Provider Family Medicine; Visit Provider Family Medicine
DX: E78.5 Hyperlipidemia, unspecified (principal); E03.9 Hypothyroidism, unspecified
CPT/HCPCS: 36415; 80053; 84443; 84481

== ENCOUNTER → 2020-10-26 | Outpatient (CLI) | payer OTHER, SELFPAY | END | disposition home or self-care (01) | PROVIDERS: PCP Family Medicine; Referring Provider Family Medicine; Visit Provider Family Medicine | DX: Z20.822 Contact with and (suspected) exposure to COVID-19 (principal) | CPT/HCPCS: 87635; U0005; U0003 ==

== ENCOUNTER 2020-12-05 05:54 | Inpatient (IN) | payer OTHER, SELFPAY ==
[2020-08-30 15:15] VITALS: BMI 35.9
--- NOTE | 2020-11-28 13:59 | EKG12_ITS ---
Test Reason : PRE OP Blood Pressure : / mmHG Vent. Rate : 079 BPM Atrial Rate : 079 BPM P-R Int : 152 ms QRS Dur : 080 ms QT Int : 364 ms P-R-T Axes : 036 074 069 degrees QTc Int : 417 ms Normal sinus rhythm Normal ECG Confirmed by CHARLY GARCIA, DEVIN ([id number]), scientific editor [address] ([id number]) on 11/29/2020 8:57:52 AM Referred By: Bigg Humphries Confirmed By:DEVIN PARKS MD
[2020-11-28 15:09] LABS: Absolute Lymphocyte Count 3.52 X10^3/uL (0.83-4.51); Absolute Neutrophil Count 6.1 X10^3/uL (2.0-7.7); Basophil# 0.03 X10^3/uL; Basophil% 0.3 % (0-1); Eosinophil# 0.07 X10^3/uL; Eosinophils% 0.7 % (0-5); Hematocrit 48.9 % (40-54); Hemoglobin 15.8 g/dL (13.0-16.5); Lymphocyte # 3.52 X10^3/ul (4.0); Lymphocyte % 33.9 % (19-41); Mean Corp Hgb Conc 32.3 g/dL (32-36); Mean Corpuscular Hgb 28.7 pg (27.0-32.0); Mean Corpuscular Volume 88.7 fL (80-94); Mean Platelet Vol. 10.2 fl (6.2-12.0); Monocyte# 0.68 X10^3/uL; Monocyte% 6.6 % (0-10); NRBC Flagged by Analyzer 0 % (0-5); Neutrophil # 6.06 X10^3/uL (2.7-7.7); Neutrophil % 58.3 % (47-70); Platelet Count 316 K/mm3 (150-450); RBC Distribution Width CV 12.4 % (11.6-14.6); RBC Distribution Width SD 40.9 fl (35.1-43.9); Red Blood Count 5.51 M/mm3 (4.6-6.2); White Blood Count 10.4 K/mm3 (4.4-11.0)
[2020-11-28 15:42] LABS: Anion Gap 4 (5-15); BUN 16 mg/dL (7-18); BUN/Creat Ratio 9.8 RATIO (10-20); Calcium,Total 9.4 mg/dL (8.5-10.1); Chloride 102 mmol/L (98-107); Creatinine, Serum 1.64 mg/dL (0.70-1.30); EST Glomerular Filtration Rate 49 mL/min (>60); Est Glom Filt Rate - Afr Amer 59 mL/min (>60); Glucose 106 mg/dL (74-106); Potassium 4.1 mmol/L (3.5-5.1); Sodium Level 138 mmol/L (136-145)
[2020-11-28 15:43] LABS: Magnesium 2.3 mg/dL (1.6-2.6)
[2020-11-28 16:07] LABS: HIV - WCH Non-Reactive (Nonreactive)
[2020-11-30 04:07] LABS: HEPATITIS B SURFACE AG Negative (Negative); Hepatitis A AB, Total Negative (Negative); Hepatitis A IgM Antibody Negative (Negative); Hepatitis B Core AB IgM Negative (Negative); Hepatitis B Core Ab Total Negative (Negative); Hepatitis C Ab <0.1 s/co ratio (0.0-0.9)
[2020-11-30 09:38] LABS: Hep B Surface Antibodies Non Reactive (.)
[2020-12-05] VITALS (18 sets, daily range): BP systolic 107–157; BP diastolic 73–110; PULSE 93–117; RESP 16–18; TEMP 36.1–37.3; O2SAT 93–100; BMI 39.0
--- NOTE | 2020-12-05 06:00 | HP_ITS ---
Intake Intake Visit Reasons: lumbar spine Accompanied by: Self Is patient in pain?: Yes Allergies No Known Allergies Allergy (Verified 11/27/20 15:03) Medications Buprenorphine HCl/Naloxone HCl [Suboxone 2 mg-0.5 mg Sl Film] 1 ea SL DAILY 12/28/18 [History Confirmed 11/27/20] Fenofibrate,Micronized [Fenofibrate] 134 mg PO DAILY 12/28/18 [History Confirmed 11/27/20] Lisinopril 40 mg PO DAILY 12/28/18 [History Confirmed 11/27/20] Tizanidine HCl [Zanaflex] 4 mg PO QHS 12/28/18 [History Confirmed 11/27/20] traZODone [Desyrel] 50 mg PO QHS 12/28/18 [History Confirmed 11/27/20] Ergocalciferol [Vitamin D] 50,000 unit PO Q7D 05/20/19 [History Confirmed 11/27/20] albuterol sulfate 90 mcg/actuation aerosol inhaler 2 puff INHALATION .four times daily PRN g 08/30/20 [History Confirmed 11/27/20] gabapentin 300 mg capsule 300 mg PO TID PRN cap 08/30/20 [History Confirmed 11/27/20] PFSH Medical History (Updated 08/30/20 @ 15:22 by Skylar Joseph) H/O: substance abuse (Acute) Surgical History (Updated 08/30/20 @ 15:21 by Skylar Joseph) H/O right wrist surgery (Acute) H/O rotator cuff surgery (Acute) History of hip replacement (Acute) Total knee replacement status (Acute) Family History (Updated 08/30/20 @ 15:23 by Skylar Joseph) Mother Lung cancer Brain tumor Grandmother Rheumatoid arthritis Grandfather Rheumatoid arthritis Other CVA (cerebral vascular accident) Cancer Hypertension Social History (Updated 11/27/20 @ 15:[address] Bigg Humphries DO) household members: spouse, children housing: house current occupational status: employed Smoking Status: Heavy Smoker (>10/day) Tobacco: How many years used: 20 alcohol intake: never substance use type: does not use, painkillers what type of physical activity do you participate in: aerobics, weight training frequency: 5-6 times per week do you feel safe at home: Yes HPI lumbar spine: Surgical H&P: Yes Details: Parts of this documentation were recorded by a scribe, this documentation accurately reflects the service provided and the decisions made by me, Dr. Bigg Humphries, DO 11/27/20 2237. CEDRIC LANDERS is a 45 year old M here today for his pre-op. Lumbar spine, DOS: 12/05/2020. Patient denies any changes with his medical history. Cedric returns for his preop 8 days from surgery. Scheduled for a 360 degree fusion at L4-5 with a right-sided far lateral laminectomy to decompress his L4 nerve. On examination he still has absence of the right patellar reflex as compared to the left. We discussed the surgery at length what what to expect etc. He knows that he will probably get an ileus which is why asked him to eat very very light on Friday and Friday before his Friday surgery. Also spoke of possible risks and complications among those possibility of coma paralysis infection meningitis failed to relieve symptoms blood clot in the legs blood clot lungs microinfarction stroke damage to major vessels damage to ureters retrograde ejaculation among others. He understood all possible risks and complications I answered all his questions I will see him again at surgery in 8 days. Assessment & Plan Problems 1. HNP (herniated nucleus pulposus), lumbar M51.26 Plan Detail Goals Decrease inflammation Improve ROM Decrease pain Barriers Facet arthosis Bulging L4 lumbar disc Coding Level of Care Code Off vis,est,level 2 Diagnoses HNP (herniated nucleus pulposus), lumbar M51.26 Time Spent (min) 25
[2020-12-05] MEDS: Lactated Ringers 1,000 ML 100 ML IV ×2 (06:23→18:06)
[2020-12-05 06:30] LABS: Bedside Glucose 123 mg/dL (70-110)
[2020-12-05] MEDS: Acetaminophen 500 MG Tablet 1000 MG PO (06:34)
[2020-12-05] MEDS: THROMBIN (RECOMBINANT) 20,000 UNIT VIAL 20000 UNIT TOPICAL (07:00)
[2020-12-05] MEDS: Heparin 10,000 UNITS/10 ML Vial 10000 UNITS ×2 (07:20→07:56)
--- NOTE | 2020-12-05 07:30 | RAD_ITS ---
STUDY: X-RAY - LUMBAR SPINE REASON FOR EXAM: Male, 45 years old. 360 FUSION L4-L5 WITH RIGHT LAMINECTOMY TECHNIQUE: Single lateral view(s) of the lumbar spine were obtained. COMPARISON: None FINDINGS: The metallic localization instrument is seen along the anterior aspect of the L4-L5 disc space level. RAD/Spine 1 View Any Level IMPRESSION: The metallic localization instrument is seen along the anterior aspect of the L4-L5 disc space level. Electronically Signed: Calvin Douglas MD at 10:19 EST , Service support ,
--- NOTE | 2020-12-05 07:30 | DISC_PTH ---
PATIENT: YURI LANDERS Jr. LOC: [facility] U#:[id number] AGE/SX: 45/M ROOM: [facility] RE12/05/[address]: Dr. Bigg Humphries DO : 1975 BED: 1 DIS: 12/08/2020 SPEC #: [id number] RECD: 12/05/20 14:46 STATUS: YAMIL REQ #: [id number] JOSE A: 12/05/20 07:[address]: Bigg Humphries DEPT: SURGICAL PATHOLOGY RECD BY: Cathi Dias ENTERED: 12/06/20 12:51 SP TYPE: DISC OTHR DR: MD Dr. Cristiano Cain MD Tissues: Intervertebral disc, NOS Procedures: Surgery Specimen Level III HEADER OPERATION: ERAS, 360 fusion L4-5 with right laminectomy L4-5 PRE-OP DIAGNOSIS: Herniated nucleus pulposus, lumbar TISSUE SUBMITTED: Disc MICROSCOPIC DIAGNOSIS Disc: Fragments of fibrocartilaginous tissue with reactive and degenerative changes. LINDA:lauryn 12/07/2020 MICROSCOPIC DESCRIPTION Slides are reviewed. GROSS DESCRIPTION Received in fixative is one container labeled with the patient's name and designated disc. The specimen consists of multiple irregular fragments of nicole, indurated tissue that in aggregate measure 5 x 3 x 2 cm. No mass lesion is identified. [facility] Office Associate sections are submitted in two cassettes. / LINDA:lauryn 12/06/20 TC:5 CPT: 59622
--- NOTE | 2020-12-05 10:00 | RAD_ITS ---
STUDY: X-RAY - LUMBAR SPINE REASON FOR EXAM: Male, 45 years old. 360 FUSION L4-L5 WITH RIGHT LAMINECTOMY. TECHNIQUE: Single lateral view(s) of the lumbar spine were obtained. COMPARISON: Comparison is made with prior study done earlier in the day. FINDINGS: The patient is status post anterior fusion at the L4-L5 level with disc spacer placement. RAD/Spine 1 View Any Level IMPRESSION: Status post anterior fusion at the L4-L5 level with disc spacer placement Electronically Signed: Calvin oDuglas MD at 11:09 EST , Service support ,
--- NOTE | 2020-12-05 11:01 | RAD_ITS ---
STUDY: X-RAY - LUMBAR SPINE REASON FOR EXAM: Male, 45 years old. 360 FUSION L4-L5 WITH RIGHT LAMINECTOMY, INTRA OP PROGRESS IMAGE TECHNIQUE: Single lateral view(s) of the lumbar spine were obtained. COMPARISON: None FINDINGS: Status post anterior fusion with screw and plate fixation device and disc spacer placement. RAD/Spine 1 View Any Level IMPRESSION: Status post anterior fusion at the L4-L5 level with disc spacer placement. Electronically Signed: Calvin Douglas MD at 12:58 EST , Service support ,
--- NOTE | 2020-12-05 11:17 | OP.PCM_ITS ---
Report of Operation Date of Procedure: 12/05/20 Description of Surgical Findings:: Preoperative diagnosis: Bilateral herniation on the right at L4-5 with intractable low back pain and tractable right L4 radiculopathy with neurological deficit Postoperative diagnosis: The same Procedure: #1 anterior lumbar interbody fusion L4-5 #2 insertion of titanium cage L4-5 #3 application of spine plate L4-5 #4 bone marrow aspirate from left iliac crest Cosurgeons: Dr. Humphries and Dr. Long Accuracy Expert: Cristian ARELLANO from the OR. Anesthesia: General endotracheal anesthesia administered by [facility] Estimated blood loss: This is described in Dr. Long's operative summary Drains: None Complications: None Procedure: Patient was taken to the OR where he was placed under general endotracheal anesthesia after being placed in the supine position on the operating table. For monitoring then placed all of their leads and the patient. A Contreras catheter was inserted. The abdomen was then prepped and draped in standard fashion. The surgical approach is then described in Dr. Long's operative summary. Dr. Long had good exposure at L4-5 as seen on x-ray I began the anterior fusion. First I removed the annulus with a 10 blade. I then removed nucleus from within the disc space with pituitary rongeurs and curettes both the ring curettes and the bowl curettes. Use the ring curettes to remove the cartilage off both endplates. I found the tear in the annulus where the disc had ruptured far lateral on the right side. I probed it with a nerve probe and I was not able to find any disc and there there was no pressure at all. Possible that a lot of the disc was removed by pulling the nucleus from within the interspace and pulling it back out. Regardless I will do a lamina far lateral laminectomy on the back on the right side just to make sure. Once all the cartilage was removed from both endplates and thorough irrigation was carried out I then obtained the bone marrow aspirate from the left iliac crest. We punched a small hole over the ASIS on the left side and then I entered with a Jamshidi needle. It was tamped into place and I easily obtained 60 cc of bone marrow aspirate. This was then handed off to the manufacturing quality technician in the room then used the centrifuge to spin it down and concentrate the patient's stem cells and them from red cells plasma etc. These were handed back to us on the OR table. Then used several sizes of trials in the space. We decided on a 16mm 25 x 35 mm cage with an 8 degree lordosis. Broach the space with both a 14 and 16 mm broach. They have a good bleeding bone of the endplates. Irrigation was carried out. I then loaded the cage with the DBM sponge and the DBM sponge was then soaked in the patient's own stem cells that were concentrated 8-10 times. We then tamped the cage into place and countersunk it approximately 3 mm. We used a 27 mm plate. Plate was centered held in place in the first of 4 holes were punched to into L4 and 2 into L5. Was using an awl. I held the plate Dr. Long used the awl for the holes and entered with the [address] Long was critical in the insertion of both the cage and the plate. Once the screws were in Dr. Long then activated the locking mechanisms to prevent the screws from retracting. I then observed that in the lateral projection with a plain x-ray was found to be excellent position of the plate the screws and the cage. Placed a amnionic membrane directly over the plate to prevent adhesions to the great vessels that were right up against it. Closure is then described in Dr. Long's operative summary.
--- NOTE | 2020-12-05 11:24 | OP.PCM_ITS ---
Report of Operation Date of Procedure: 12/05/20 Pre-Operative Diagnosis: Degenerative disc disease Post-Operative Diagnosis: Degenerative disc disease Surgery/Procedure Performed:: 1. Anterior approach with retroperitoneal exposure and anterior lumbar interbody fusion L4-L5 with 16mm cage and anterior plate with 2 screws into L4 and 2 into L5 Type of Anesthesia:: General Description of Procedure: Surgeon: Dr. Bigg Humphries co-surgeon: Dr. Gurmeet Long, contributed for the entirety of the anterior component Procedure: Patient brought to the operating room. Underwent appropriate timeout consent. Underwent general anesthesia. All the appropriate monitoring lines were placed. He was prepped and draped in a sterile fashion. We did a left lower quadrant curvilinear incision. Dissected down onto the anterior rectus fascia and opened this. We divided along the anterior fascia lateral to the rectus and into the obliques freeing this up slightly. We then raised the anterior fascia superior and inferiorly freeing up along this area. We then went slightly cross midline to the right freeing up some of that space as well. Going lateral to the rectus we got down into the retroperitoneal plane and down onto the iliopsoas. We freed up along this way we could feel the iliac vessels. We put in the Omni retractor. Then using blunt dissection we went lateral to the iliac arteries dissecting down onto the L4-L5 disc space. Venous branches and some lumbar vessels were divided between clips. There was an iliolumbar vein coming off that was the divided after tying clips were placed. Vein appeared to retract over ad equately inferiorly and medially. We then confirm we are in the L4-L5 disc space. Patient underwent extensive discectomy freeing up the space. Freed up the endplates of L4 and L5. Sizers were placed in a look like a 16mm appropriate size. We then had placed a 16mm cage. Is in good position. Freed up onto the body to place the plate. 2 screws were then placed in L4 and 2 and L5. We then put a film over and released back the vessels. There was good hemostasis. We then removed out the retractors did a completion x-ray that showed the cage to be in good position L4-L5 with screws also in good position. We then closed the anterior fascia with running strata fix. And some 2-0 Vicryl in interrupted 3-0 Vicryl Dermabond was placed. This ended the anterior component. Patient will be flipped over and then all done separately for the posterior.
--- NOTE | 2020-12-05 12:49 | RAD_ITS ---
STUDY: X-RAY - LUMBAR SPINE REASON FOR EXAM: Male, 45 years old. 360 Fusion L4-L5 with Right Laminectomy L4-L5 TECHNIQUE: Single lateral view(s) of the lumbar spine were obtained. COMPARISON: Comparison is made with prior study done earlier today. FINDINGS: The patient is status post anterior and posterior fusion. RAD/Spine 1 View Any Level IMPRESSION: Status post anterior and posterior fusion with disc spacer in place. Electronically Signed: Calvin Douglas MD at 14:30 EST , Service support ,
--- NOTE | 2020-12-05 14:39 | PCM.OPRPT ---
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 Postoperative diagnoses: The same Procedure: #1 lateral laminectomy L4-5 on the right #2 posterior fusion L4-5 #3 internal segmental fixation L4-5 Surgeon: Dr. Humphries trust manager assistant: Cristian ARELLANO from OR Anesthesia: General endotracheal anesthesia administered by [facility] Estimated blood loss: 100 cc Drains: None Complications: None Procedure: Patient was taken to the OR where the anterior lumbar fusion was done first. This was the second part of a 360 degree fusion. The abdomen was closed we then placed the patient on the prone position on the Dank frame. There was taken to protect his genitalia his bony prominences the ulnar nerves of both elbows the brachial plexus bilaterally. The low back was then prepped and draped standard fashion. I then made a longitudinal incision centered over L4 5 subcutaneous tissues were incised length of skin incision. First elevated the paravertebral muscles off the lamina of for the lamina 5 with cautery. An intraoperative x-ray was taken to assure that we were indeed at the proper level which we were. Paula retractor out lateralward to give us access to the lamina of L4 begin the laminectomy from the lateral side instead of the usual medial medial approach. I remove the very top of the 4 5 facet pair with an osteotome. I then performed a laminectomy with 45 degree Kerrison rongeurs. Identified the ligamentum flavum over the nerve root. This was removed with 45 degree Kerrison rongeurs. Was then able to observe the nerve note that this patient had conjoint nerve roots I found II nerve roots both about the same size. This explains the large size of the roots seen on the MRI scan. Note that the herniation apparently was removed from the anterior approach. Anteriorly I found the torn annulus and probed it with a nerve probe noted there was no disc seen this was after removal of the nucleus pulposus inside and I suspect the a contiguous portion of the extruded disc was removed by removing the inside disc. I found these to nerves conjoint that they were without specific pressure from underneath or from the medial side as is usually seen in the lateral herniations. I used a hockey-stick to probe anterior to: Behind them both cephalad and caudad directions and there simply was no evidence of herniated disc anymore. Thoroughly irrigated with copious amounts of sterile saline I then packed this with Gelfoam and a cottonoid while we prepared the bed for the fusion. I then elevated the therapy to muscles all all open the other side on that is the left side and elevated to paravertebral muscles off the lamina for and the lamina of L5. The super slide retractor was then inserted. First I removed the interspinous ligament between the spinous process of 4 and spinous process of 5. I then burred the lamina of 4 on both sides and lamina 5 on both sides. Her DBM bone graft that was soaked with the patient's own stem cells was then placed in both over both posterior portions the bone was then placed in between to open up the foramina. Following this the internal fixation device was put in place once appropriately lined up and secured the locking mechanisms were activated. There was a very good posterior construct. We removed the Gelfoam from the laminotomy site and amniotic membrane was used to prevent adhesions place over both nerve roots Gelfoam was placed over the top of that. Then began closure the lumbar fascia was closed using [id number] suture with #1 Vicryl for closure of subcutaneous tissues with 2-0 Vicryl in interrupted fashion and skin was approximated using skin clips sterile dressings were then applied the patient was then recovered in the OR moved to his hospital bed and taken to recovery in satisfactory condition this interoperative summary on Cedric Del Toro is Dr. Humphries dictating thank you
[2020-12-05] MEDS: Cefazolin 1 GM/50 ML BAG IV ×2 (18:06→23:54)
--- NOTE | 2020-12-05 18:07 | PN_ITS ---
Subjective: Mr. Del Toro is a 45-year-old male with history of substance abuse who presents to the hospital for an elective lateral laminectomy, posterior fusion and internal segmental fixation of L4-5 on the right for chronic back pain. Doing okay after surgery, he is still very lethargic from anesthesia. States that his medical history was fairly well-maintained and he has not had any recent medication changes. He does have an elevated creatinine baseline is around 1.4-1.6 and it was 1.64 on 11/28/2020 therefore will recheck in the morning. Vitals/I&O's: Vital Signs Temp Pulse Resp BP Pulse Ox 98.0 F 106 H 16 126/73 H 95 12/05/20 17:42 12/05/20 17:42 12/05/20 17:42 12/05/20 17:42 12/05/20 17:42 Oxygen Flow Rate (L/min) 2 Oxygen Delivery Method Nasal Cannula Weight: 272 lb 4.334 oz Body Mass Index (BMI) 39.0 Intake and Output for Last 24 Hours 12/03/20 12/04/20 12/05/20 23:59 23:59 23:59 Intake Total 1222 / 1222 Output Total 1950 / 1950 Balance -728 / -728 General: Alert, Oriented x3, Cooperative, No apparent distress HEENT: Atraumatic, PERRLA, EOMI, Normocephalic Oral: Moist Mucosa Neck: Supple, No JVD Lungs: Normal air movement, No rhonchi, No wheeze, No rales, Diminished Cardiovascular: Regular rate, Regular Rhythm, Normal S1, Normal S2, No murmurs Abdomen: Soft, Non Tender, Non-Distended, No Hepato-splenomegaly Extremities: No edema, Capillary Refill Less than 3 Seconds Skin: No rashes, No breakdown Neurological: Neuro grossly intact, Sensory exam intact to light touch and pain Psych/Mental Status: Normal Affect, Appropriate Microbiology Past 72 Hours 12/04/20 14:00 Interface Orders SARS-CoV-2 Antigen (Rapid) - Final Laboratory Results 12/05/20 06:20: POC Glucose 123 H Current Medications Diazepam (Diazepam 5 Mg Tablet) 5 mg PO Q6H PRN PRN PRN Reason: Muscle Spasms Enteral Nutritional Formula (Ensure Surgery 237 Ml Liquid) 237 ml PO TIDCM [facility] Last Admin: 12/05/20 18:02 Dose: Not Given Documented by: Lactated Ringer's () 1,000 mls @ 100 mls/hr IV .Q10H [facility] Last Admin: 12/05/20 18:06 Dose: 100 mls/hr Documented by: Cefazolin Sodium () 1 gm in 50 mls @ 100 mls/hr IV Q8H [facility] Stop: 12/06/20 00:29 Last Admin: 12/05/20 18:06 Dose: 100 mls/hr Documented by: Morphine Sulfate (Morphine 4 Mg/Ml Syringe) 2 - 4 mg IV Q2H PRN PRN PRN Reason: Pain Score 6-10 Morphine Sulfate (Morphine 2 Mg/Ml Syringe) 2 - 4 mg IV Q2H PRN PRN PRN Reason: Pain Score 6-10 Ondansetron HCl (Ondansetron 4 Mg/2 Ml Vial) 4 mg IV Q8H PRN PRN PRN Reason: NAUSEA Senna/Docusate Sodium (Senna/Docusate Sodium 1 Tablet) 2 tablet PO BID [facility] Sodium Chloride (0.9% Nacl Peripheral Flush Adult/Peds) 5 - 15 ml IV UD PRN PRN Reason: SALINE FLUSH Tramadol HCl (Tramadol 50 Mg Tablet) 50 - 100 mg PO Q6H PRN PRN PRN Reason: Pain Score 4-5 Zolpidem Tartrate (Zolpidem Tartrate 5 Mg Tablet) 5 mg PO QHS PRN PRN PRN Reason: INSOMNIA STROKE Vital Signs/Narrative: Vital Signs Temp Pulse Resp BP Pulse Ox 12/05/20 17:42 98.0 F 106 H 16 126/73 H 95 12/05/20 17:17 99.1 F 117 H 16 123/84 H 94 12/05/20 17:13 100 16 123/84 H 94 12/05/20 17:09 114 H 16 135/82 H 95 12/05/20 16:45 114 H 16 135/82 H 12/05/20 16:32 95 16 132/77 H 98 12/05/20 16:18 112 H 16 143/90 H 99 12/05/20 16:01 102 H 16 157/80 H 98 12/05/20 15:46 104 H 16 149/82 H 100 12/05/20 15:36 103 H 16 136/101 H 100 12/05/20 15:15 99 16 147/87 H 99 12/05/20 15:01 97.0 F L 98 16 128/110 H 99 12/05/20 15:00 108 H 16 130/74 H 97 Medical Necessity - Tobacco Use Smoking Status: Heavy Smoker (>10/day) Assessment/Plan All Active Problems (Last Updated 08/30/20 @ 15:22 by Skylar Joseph) Bulging lumbar disc (Acute) Back pain (Acute) Segmental and somatic dysfunction of thoracic region (Acute) Segmental and somatic dysfunction of pelvic region (Acute) Segmental and somatic dysfunction of lumbar region (Acute) 1. Status post elective lateral laminectomy, posterior fusion and internal segmental fixation of L4-5 on the right 12/05/2020 -Pain management per primary -PT/OT -We will hold his lisinopril pending BMP in the morning -Can restart his home Suboxone and will likely need morphine for breakthrough, can restart his gabapentin, tizanidine, trazodone 2. HTN/HLD -Blood pressure stable, will hold his lisinopril until repeat BMP in the morning, at that time if it is at baseline can restart his lisinopril -Continue with his fenofibrate DVT: SCDs Inpatient E&M: 67783 Subs Hosp L2
[2020-12-05] MEDS: Morphine 2 MG/ML Syringe IV ×2 (19:31→22:01)
[2020-12-05] MEDS: 0.9% NaCl Peripheral Flush Adult/Peds IV ×2 (19:31→22:01)
[2020-12-05] MEDS: Senna/Docusate Sodium 1 Tablet 2 TABLET PO (23:04)
[2020-12-05] MEDS: traZODone 50 MG Tablet PO (23:04)
[2020-12-05] MEDS: tiZANidine HCl 2 MG Tablet 4 MG PO (23:04)
[2020-12-06] VITALS (10 sets, daily range): BP systolic 102–136; BP diastolic 63–87; PULSE 90–102; RESP 16–18; TEMP 36.6–36.9; O2SAT 92–97
[2020-12-06] MEDS: 0.9% NaCl Peripheral Flush Adult/Peds IV ×5 (01:19→16:13)
[2020-12-06] MEDS: Morphine 2 MG/ML Syringe IV ×8 (01:19→20:13)
--- NOTE | 2020-12-06 02:47 | NURSING ---
pt unsure of his suboxone order. states he will talk to his .
[2020-12-06] MEDS: traMADol 50 MG Tablet PO ×2 (03:25→16:55)
[2020-12-06 06:13] LABS: Absolute Lymphocyte Count 1.74 X10^3/uL (0.83-4.51); Absolute Neutrophil Count 10.3 X10^3/uL (2.0-7.7); Basophil# 0.02 X10^3/uL; Basophil% 0.1 % (0-1); Eosinophil# 0.01 X10^3/uL; Eosinophils% 0.1 % (0-5); Hematocrit 40.6 % (40-54); Hemoglobin 13.5 g/dL (13.0-16.5); Lymphocyte # 1.74 X10^3/ul (4.0); Lymphocyte % 12.8 % (19-41); Mean Corp Hgb Conc 33.3 g/dL (32-36); Mean Corpuscular Hgb 29.7 pg (27.0-32.0); Mean Corpuscular Volume 89.2 fL (80-94); Monocyte# 1.54 X10^3/uL; Monocyte% 11.3 % (0-10); NRBC Flagged by Analyzer 0 % (0-5); Neutrophil # 10.28 X10^3/uL (2.7-7.7); Neutrophil % 75.4 % (47-70); POSITIVE DIFFERENTIAL YES; Platelet Count 228 K/mm3 (150-450); RBC Distribution Width CV 12.8 % (11.6-14.6); RBC Distribution Width SD 41.7 fl (35.1-43.9); Red Blood Count 4.55 M/mm3 (4.6-6.2); White Blood Count 13.6 K/mm3 (4.4-11.0)
[2020-12-06 06:16] LABS: Differential Indicated SCAN CRITERIA MET
[2020-12-06 06:35] LABS: Differential Comment SCANNED
[2020-12-06 06:37] LABS: Anion Gap 5 (5-15); BUN 13 mg/dL (7-18); BUN/Creat Ratio 8.6 RATIO (10-20); Calcium,Total 8.4 mg/dL (8.5-10.1); Chloride 103 mmol/L (98-107); Creatinine, Serum 1.51 mg/dL (0.70-1.30); EST Glomerular Filtration Rate 53 mL/min (>60); Est Glom Filt Rate - Afr Amer 65 mL/min (>60); Estimated Creatinine Clearance 64.46 ml/min; Glucose 115 mg/dL (74-106); Potassium 3.8 mmol/L (3.5-5.1); Sodium Level 137 mmol/L (136-145)
[2020-12-06] MEDS: diazePAM 5 MG Tablet PO (08:21)
--- NOTE | 2020-12-06 08:27 | PN_ITS ---
Subjective: Chief complaint: Follow-up after consultation for postoperative medical management. Patient seen and examined. No acute events overnight. This morning, he complains of significant abdominal and back pain. Received IV morphine at 6 AM but no improvement. He is afebrile, blood pressure and heart rate are stable, pulse ox is 94% on monitor of oxygen. - Physical Exam Vitals/I&O's: Vital Signs Temp Pulse Resp BP Pulse Ox 98.4 F 93 16 136/77 H 94 12/06/20 06:48 12/06/20 06:48 12/06/20 06:48 12/06/20 06:48 12/06/20 06:48 Oxygen Flow Rate (L/min) 1 Oxygen Delivery Method Nasal Cannula Weight: 272 lb 4.334 oz Body Mass Index (BMI) 39.0 Intake and Output for Last 24 Hours 12/04/20 12/05/20 12/06/20 23:59 23:59 23:59 Intake Total 2853.67 / 2853.67 607.25 / 607.25 Output Total 3850 / 3850 700 / 700 Balance -996.33 / -996.33 -92.75 / -92.75 General: Alert, Oriented x3, Cooperative, - - He is in moderate pain. HEENT: Atraumatic, PERRLA, EOMI, Normocephalic Oral: Moist Mucosa, No Gingival or Mucosal Lesions/ Ulcerations Neck: Supple, No JVD, Negative Carotid Bruits, Trachea Midline, Thyroid Normal Size and Texture Lungs: Clear to auscultation, No rhonchi, No wheeze, No rales Cardiovascular: Regular rate, Regular Rhythm, Normal S1, Normal S2, PMI Normal Abdomen: Bowel Sounds Present, Soft, Non-Distended, No Hepato-splenomegaly, Obese, Tender Extremities: No clubbing, No cyanosis, No edema Skin: No rashes, No breakdown Lymphatic: No Cervical, Supraclavicular, or Inguinal Adenopathy Neurological: Cranial nerves II-XII grossly intact, Neuro grossly intact Psych/Mental Status: Normal Affect, Appropriate Microbiology Past 72 Hours 12/04/20 14:00 Interface Orders SARS-CoV-2 Antigen (Rapid) - Final Laboratory Results 12/06/20 05:46: WBC 13.6 H, RBC 4.55 L, Hgb 13.5, Hct 40.6, MCV 89.2, MCH 29.7, MCHC 33.3, RDW Std Deviation 41.7, RDW Coeff of Lester 12.8, Plt Count 228, MPV 10.0, Immature Gran % (Auto) 0.300, Neut % (Auto) 75.4 H, Lymph % (Auto) 12.8 L, [place] % (Auto) 11.3 H, Eos % (Auto) 0.1, Baso % (Auto) 0.1, Absolute Neuts (auto) 10.3 H, Absolute Lymphs (auto) 1.74, Nucleated RBC % 0, Differential Comment SCANNED, Diff Path Review February12/06/20 05:46: Sodium 137, Potassium 3.8, Chloride 103, Carbon Dioxide 29.0, Anion Gap 5, BUN 13, Creatinine 1.51 H, Estim Creat Clear Calc 64.46, Est GFR (MDRD) Af Amer 65, Est GFR (MDRD) Non-Af 53 L, BUN/Creatinine Ratio 8.6 L, Glucose 115 H, Calcium 8.4 L Current Medications Diazepam (Diazepam 5 Mg Tablet) 5 mg PO Q6H PRN PRN PRN Reason: Muscle Spasms Last Admin: 12/06/20 08:21 Dose: 5 mg Documented by: Enteral Nutritional Formula (Ensure Surgery 237 Ml Liquid) 237 ml PO TIDCM [facility] Last Admin: 12/05/20 18:02 Dose: Not Given Documented by: Gabapentin (Gabapentin 300 Mg Capsule) 300 mg PO TID PRN PRN Reason: BACK PAIN Morphine Sulfate (Morphine 4 Mg/Ml Syringe) 2 - 4 mg IV Q2H PRN PRN PRN Reason: Pain Score 6-10 Morphine Sulfate (Morphine 2 Mg/Ml Syringe) 2 - 4 mg IV Q2H PRN PRN PRN Reason: Pain Score 6-10 Last Admin: 12/06/20 06:52 Dose: 4 mg Documented by: Non-Formulary Medication (Buprenorphine Hcl/Naloxone Hcl [Suboxone 2 Mg-0.5 Mg Sl Film]) 1 ea SL DAILY [facility] Ondansetron HCl (Ondansetron 4 Mg/2 Ml Vial) 4 mg IV Q8H PRN PRN PRN Reason: NAUSEA Senna/Docusate Sodium (Senna/Docusate Sodium 1 Tablet) 2 tablet PO BID [facility] Last Admin: 12/05/20 23:04 Dose: 2 tablet Documented by: Sodium Chloride (0.9% Nacl Peripheral Flush Adult/Peds) 5 - 15 ml IV UD PRN PRN Reason: SALINE FLUSH Last Admin: 12/06/20 06:52 Dose: 10 ml Documented by: Sodium Chloride (0.9% Saline Lock 10 Ml Syringe) 10 - 40 ml IV UD PRN PRN Reason: SALINE FLUSH Tizanidine HCl (Tizanidine Hcl 2 Mg Tablet) 4 mg PO QHS [facility] Last Admin: 12/05/20 23:04 Dose: 4 mg Documented by: Tramadol HCl (Tramadol 50 Mg Tablet) 50 - 100 mg PO Q6H PRN PRN PRN Reason: Pain Score 4-5 Last Admin: 12/06/20 03:25 Dose: 50 mg Documented by: Trazodone HCl (Trazodone 50 Mg Tablet) 50 mg PO QHS [facility] Last Admin: 12/05/20 23:04 Dose: 50 mg Documented by: Zolpidem Tartrate (Zolpidem Tartrate 5 Mg Tablet) 5 mg PO QHS PRN PRN PRN Reason: INSOMNIA Medical Necessity - Tobacco Use Smoking Status: Heavy Smoker (>10/day) Assessment/Plan All Active Problems (Last Updated 08/30/20 @ 15:22 by Skylar Joseph) Bulging lumbar disc (Acute) Back pain (Acute) This is a 45 years old male patient underwent elective anterior lumbar L4-L5 fusion, L4-L5 laminectomy for lateral L4-L5 disc herniation with radiculopathy and neurological deficit and I am seeing this patient for follow-up after consultation for postoperative medical management. #1 status post anterior lumbar L4-L5 fusion/posterior fusion/L4-L5 laminectomy: This was done for L4-L5 disc herniation with radiculopathy and neurological deficit, postoperative day 1. Patient is on IV morphine and tramadol as needed for pain. His pain is not well controlled. His vital signs are stable. Repeat CBC and BMP today revealed mild leukocytosis and creatinine of 1.51 which is chronic. Spine surgery is on the case. Plan: Continue same treatment, add OxyIR as needed for pain. #2 hypertension: Currently, blood pressure stable. Plan to resume lisinopril. #3 stage III chronic kidney disease: Baseline creatinine has been around 1.4 to 1.7 mg/dL. Today's creatinine is 1.51, stable at baseline. #4 history of opioid abuse: Used to be on Subutex, plan to resume once home medication list updated. #5 hyperlipidemia: Continue fenofibrate. #6 DVT prophylaxis: SCDs. This note was generated with [employer] dictation software. It may contain incorrect words, spelling, and punctuation that were not noted in checking the note before signing. Inpatient E&M: 94707 Subs Hosp L2
[2020-12-06] MEDS: oxyCODONE 5 MG Tablet PO (08:48)
--- NOTE | 2020-12-06 08:59 | NURSING ---
pt unsure of his home suboxone dose. phoned Kelli Del Toro spouse as per number listed in demographics list- voice mail message left with return number to floor in regards to request for home medication summary.
--- NOTE | 2020-12-06 09:12 | NURSING ---
spoke with Vijay in pharmacy regarding medication clarification on suboxone and medications for pain. Vijay will check into and speak with for any clarifications.
--- NOTE | 2020-12-06 09:50 | NURSING ---
spouse Barbara returned phone call- states she is at work and when she gets off work she will go home and check his bottle and call in with information to clarify. updated med being held while pt in here d/t receiving narcotic pain medications but want to make sure it is correct on home summary for discharge planning needs. Barbara verbalizes understanding.
[2020-12-06] MEDS: Lisinopril 40 MG Tablet PO (09:56)
[2020-12-06] MEDS: Senna/Docusate Sodium 1 Tablet 2 TABLET PO ×2 (09:56→22:29)
[2020-12-06] MEDS: Fenofibrate 145 MG Tablet PO (09:56)
--- NOTE | 2020-12-06 11:00 | CASEMGMT ---
ADAN GONZALEZ Face to Face with patient for initial transition planning/care coordination assessment. RN CM introduced self and role at [facility]. Patient lying in bed, alert and oriented, at bedside. Patient and willing to participate in assessment and is able to answer all questions appropriately. Care providers, pharmacy, and demographics verified. Patient wishes to discharge home, denies need for home health at this time. Patient states he has no further needs or concerns at this time. CM to follow for discharge planning needs that may arise. PCP: Tanya Specialists: Yandel,spinal surgeon; Phyllis, pain management; [facility] Preferred [facility]acy: [facility] Insurance: MMO Prescription Benefit: yes Living Will/HPOA: no living will, yes HPOA, LNOK: Living Arrangements: Patient lives with in a split level home with 5 steps between floors and a rail on one side. Pt states he was independent at home. Transportation: self/ DME/HHC: Patient states he has a BSC. Patient has previously had outpatient therapy at [facility]. Will monitor for need for walker and possible therapy at discharge. Disposition Plan: Patient to discharge home with family support and follow up plans in place.
--- NOTE | 2020-12-06 12:52 | PCM.PN.BLA ---
Progress Note Postop day #1. She complains of a lot of pain both in his low back and in his abdomen. Generally he feels that his right thigh pain is better as expected. Plan him and his that the first couple or 3 days are bad and then he gets better and better after that. He will turn the corner probably Friday. Has no bowel sounds yet and has got a little air in his abdomen at this point. Logically is intact in both lower extremities. Things are dry. Sonny is satisfactory at this point. STROKE Vital Signs/Narrative: Vital Signs Temp Pulse Resp BP Pulse Ox 12/06/20 12:03 100 129/65 H 12/06/20 09:45 97.8 F 93 18 131/81 H 95 12/06/20 09:17 97.9 F 90 18 102/74 94
[2020-12-06] MEDS: oxyCODONE 5 MG Tablet 10 MG PO ×3 (13:18→22:30)
[2020-12-06] MEDS: Ensure Surgery 237 ML LIQUID PO ×2 (13:20→18:17)
[2020-12-06] MEDS: Gabapentin 300 MG Capsule PO (18:13)
[2020-12-06] MEDS: traZODone 50 MG Tablet PO (22:29)
[2020-12-06] MEDS: tiZANidine HCl 2 MG Tablet 4 MG PO (22:29)
[2020-12-07 03:02] VITALS: BP 136/101; PULSE 83; RESP 18; TEMP 36.6; O2SAT 94
[2020-12-07] MEDS: oxyCODONE 5 MG Tablet 10 MG PO ×5 (03:07→19:36)
[2020-12-07] MEDS: Morphine 2 MG/ML Syringe IV (05:40)
[2020-12-07] MEDS: 0.9% Saline Lock 10 ML Syringe IV (05:40)
[2020-12-07 07:12] VITALS: O2SAT 91
--- NOTE | 2020-12-07 09:05 | PN_ITS ---
Subjective: Chief complaint: Follow-up after consultation for postoperative medical management. Patient seen and examined. No acute events overnight. He is still complaining of abdominal and low back pain but minimally improved compared to yesterday. He has been passing flatus, no bowel movement. Denied nausea or vomiting. Denied fever or chills. He reported very poor appetite. Urine is very dark in the urine bag. His vital signs are stable. - Physical Exam Vitals/I&O's: Vital Signs Temp Pulse Resp BP Pulse Ox 97.8 F 83 18 136/101 H 94 12/07/20 03:02 12/07/20 03:02 12/07/20 03:02 12/07/20 03:02 12/07/20 03:02 Oxygen Flow Rate (L/min) 1 Oxygen Delivery Method Room Air Weight: 272 lb 4.334 oz Body Mass Index (BMI) 39.0 Intake and Output for Last 24 Hours 12/05/20 12/06/20 12/07/20 23:59 23:59 23:59 Intake Total 2853.67 / 2853.67 1807.25 / 1807.25 300 / 300 Output Total 3850 / 3850 2600 / 2600 500 / 500 Balance -996.33 / -996.33 -792.75 / -792.75 -200 / -200 General: Alert, Oriented x3, Cooperative, - - He is in moderate pain, distress. HEENT: Atraumatic, PERRLA, EOMI, Normocephalic Oral: Moist Mucosa, No Gingival or Mucosal Lesions/ Ulcerations Neck: Supple, No JVD, Negative Carotid Bruits, Trachea Midline, Thyroid Normal Size and Texture Lungs: Clear to auscultation, No rhonchi, No wheeze, No rales, Diminished Cardiovascular: Regular rate, Regular Rhythm, Normal S1, Normal S2, PMI Normal Abdomen: Bowel Sounds Present, No Hepato-splenomegaly, Hypoactive Bowel Sounds, Distended, Tender Extremities: No clubbing, No cyanosis, No edema Skin: No rashes, No breakdown Lymphatic: No Cervical, Supraclavicular, or Inguinal Adenopathy Neurological: Cranial nerves II-XII grossly intact, Neuro grossly intact Psych/Mental Status: Normal Affect, Appropriate, Alert and oriented to time, place, person, mood and affect Microbiology Past 72 Hours 12/04/20 14:00 Interface Orders SARS-CoV-2 Antigen (Rapid) - Final Current Medications Diazepam (Diazepam 5 Mg Tablet) 5 mg PO Q6H PRN PRN PRN Reason: Muscle Spasms Last Admin: 12/06/20 08:21 Dose: 5 mg Documented by: Fenofibrate ([facility]ibrate 145 Mg Tablet) [facility] Last Admin: 12/06/20 09:56 Dose: 145 mg Documented by: Gabapentin (Gabapentin 300 Mg Capsule) 300 mg PO TID PRN PRN Reason: BACK PAIN Last Admin: 12/06/20 18:13 Dose: 300 mg Documented by: Lisinopril (Lisinopril 40 Mg Tablet) 40 mg PO DAILY [facility] Last Admin: 12/06/20 09:56 Dose: 40 mg Documented by: Morphine Sulfate (Morphine 4 Mg/Ml Syringe) 2 - 4 mg IV Q2H PRN PRN PRN Reason: Pain Score 6-10 Morphine Sulfate (Morphine 2 Mg/Ml Syringe) 2 - 4 mg IV Q2H PRN PRN PRN Reason: Pain Score 6-10 Last Admin: 12/07/20 05:40 Dose: 4 mg Documented by: Ondansetron HCl (Ondansetron 4 Mg/2 Ml Vial) 4 mg IV Q8H PRN PRN PRN Reason: NAUSEA Oxycodone HCl (Oxycodone 5 Mg Tablet) 10 mg PO Q4H PRN PRN PRN Reason: Pain Score 6-10 Last Admin: 12/07/20 07:21 Dose: 10 mg Documented by: Senna/Docusate Sodium (Senna/Docusate Sodium 1 Tablet) 2 tablet PO BID [facility] Last Admin: 12/06/20 22:29 Dose: 2 tablet Documented by: Sodium Chloride (0.9% Nacl Peripheral Flush Adult/Peds) 5 - 15 ml IV UD PRN PRN Reason: SALINE FLUSH Last Admin: 12/06/20 16:13 Dose: 10 ml Documented by: Sodium Chloride (0.9% Saline Lock 10 Ml Syringe) 10 - 40 ml IV UD PRN PRN Reason: SALINE FLUSH Last Admin: 12/07/20 05:40 Dose: 40 ml Documented by: Tizanidine HCl (Tizanidine Hcl 2 Mg Tablet) 4 mg PO QHS [facility] Last Admin: 02/17/21 22:29 Dose: 4 mg Documented by: Tramadol HCl (Tramadol 50 Mg Tablet) 50 - 100 mg PO Q6H PRN PRN PRN Reason: Pain Score 4-5 Last Admin: 12/06/20 16:55 Dose: 100 mg Documented by: Trazodone HCl (Trazodone 50 Mg Tablet) 50 mg PO QHS [facility] Last Admin: 12/06/20 22:29 Dose: 50 mg Documented by: Zolpidem Tartrate (Zolpidem Tartrate 5 Mg Tablet) 5 mg PO QHS PRN PRN PRN Reason: INSOMNIA Medical Necessity - Tobacco Use Smoking Status: Heavy Smoker (>10/day) Assessment/Plan All Active Problems (Last Updated 08/30/20 @ 15:22 by Skylar Joseph) Bulging lumbar disc (Acute) Back pain (Acute) This is a 45 years old male patient underwent elective anterior lumbar L4-L5 fusion, L4-L5 laminectomy for lateral L4-L5 disc herniation with radiculopathy and neurological deficit and I am seeing this patient for follow-up after consultation for postoperative medical management. #1 status post anterior lumbar L4-L5 fusion/posterior fusion/L4-L5 laminectomy: This was done for L4-L5 disc herniation with radiculopathy and neurological deficit, postoperative day 2. Remained on IV morphine and tramadol as well as oxycodone as needed for pain. Still complaining of significant abdominal pain and back pain with minimal slow improvement. His vital signs are stable. Plan: Start gentle IV fluids for hydration, repeat CBC and BMP tomorrow morning #2 hypertension: Currently, blood pressure stable. Continue lisinopril. #3 stage III chronic kidney disease: Baseline creatinine has been around 1.4 to 1.7 mg/dL. Yesterday's creatinine is 1.51, stable at baseline. Plan to repeat BMP tomorrow morning. #4 history of opioid abuse: He is off Subutex, on IV morphine and oxycodone as needed. #5 hyperlipidemia: Continue fenofibrate. #6 DVT prophylaxis: SCDs. This note was generated with [employer] software. It may contain incorrect words, spelling, and punctuation that were not noted in checking the note before signing. Inpatient E&M: 71375 Subs Hosp L2
[2020-12-07] MEDS: Morphine 4 MG/ML Syringe IV ×2 (09:38→14:19)
[2020-12-07 09:42] VITALS: BP 135/85; PULSE 95; RESP 18; TEMP 36.4; O2SAT 92
[2020-12-07] MEDS: Senna/Docusate Sodium 1 Tablet 2 TABLET PO ×2 (10:09→21:11)
[2020-12-07] MEDS: 0.9% Normal Saline 1,000 ML 100 ML IV ×2 (10:09→19:36)
[2020-12-07] MEDS: Fenofibrate 145 MG Tablet PO (10:10)
[2020-12-07] MEDS: Lisinopril 40 MG Tablet PO (10:10)
[2020-12-07] MEDS: Gabapentin 300 MG Capsule PO ×2 (10:12→21:11)
--- NOTE | 2020-12-07 11:01 | PCM.PN.BLA ---
Progress Note Postop day #2. Patient is seen on rounds doing better than yesterday. He still has an ileus does have some minor bowel sounds but he is having flatulence. Dates that he is significantly better than yesterday. His anterior thigh pain is completely resolved. His dressings are both dry. Neurologically he is intact in both lower extremities. We will continue clear liquids for now until he good bowel sounds. STROKE Vital Signs/Narrative: Vital Signs Temp Pulse Resp BP Pulse Ox 12/07/20 09:42 97.6 F L 95 18 135/85 H 92 12/07/20 07:12 91
[2020-12-07 13:12] LABS: Pathologist Review Reviewed
[2020-12-07] MEDS: 0.9% NaCl Peripheral Flush Adult/Peds IV (14:19)
[2020-12-07 15:18] VITALS: BP 135/86; PULSE 84; RESP 20; TEMP 36.4; O2SAT 96
--- NOTE | 2020-12-07 15:33 | NURSING ---
Pt walking in [place]aza at this time. Will sit up in chair for second time today.
[2020-12-07] MEDS: traMADol 50 MG Tablet PO (17:29)
[2020-12-07] MEDS: diazePAM 5 MG Tablet PO (17:29)
--- NOTE | 2020-12-07 18:34 | NURSING ---
Went to give morphine IV, pt sleeping, snoring. No distress.
[2020-12-07 20:59] VITALS: BP 138/82; PULSE 95; RESP 18; TEMP 36.5; O2SAT 95
[2020-12-07] MEDS: traZODone 50 MG Tablet PO (21:11)
[2020-12-07] MEDS: tiZANidine HCl 2 MG Tablet 4 MG PO (21:11)
[2020-12-08 01:56] VITALS: BP 141/78; PULSE 85; RESP 18; TEMP 36.8; O2SAT 92
[2020-12-08] MEDS: oxyCODONE 5 MG Tablet 10 MG PO ×4 (02:00→14:31)
[2020-12-08] MEDS: Gabapentin 300 MG Capsule PO ×2 (04:27→12:54)
[2020-12-08] MEDS: diazePAM 5 MG Tablet PO ×2 (04:27→10:26)
[2020-12-08 05:36] LABS: Absolute Lymphocyte Count 2.65 X10^3/uL (0.83-4.51); Absolute Neutrophil Count 8.5 X10^3/uL (2.0-7.7); Basophil# 0.02 X10^3/uL; Basophil% 0.2 % (0-1); Eosinophils% 0.8 % (0-5); Hematocrit 36.4 % (40-54); Hemoglobin 11.8 g/dL (13.0-16.5); Lymphocyte # 2.65 X10^3/ul (4.0); Mean Corp Hgb Conc 32.4 g/dL (32-36); Mean Corpuscular Hgb 29.1 pg (27.0-32.0); Mean Corpuscular Volume 89.9 fL (80-94); Monocyte% 10.3 % (0-10); NRBC Flagged by Analyzer 0 % (0-5); Neutrophil % 67.4 % (47-70); Platelet Count 222 K/mm3 (150-450); RBC Distribution Width CV 12.4 % (11.6-14.6); RBC Distribution Width SD 41.1 fl (35.1-43.9); Red Blood Count 4.05 M/mm3 (4.6-6.2); White Blood Count 12.6 K/mm3 (4.4-11.0)
[2020-12-08 05:55] LABS: Anion Gap 6 (5-15); BUN 16 mg/dL (7-18); BUN/Creat Ratio 13.8 RATIO (10-20); Calcium,Total 8.7 mg/dL (8.5-10.1); Chloride 103 mmol/L (98-107); Creatinine, Serum 1.16 mg/dL (0.70-1.30); EST Glomerular Filtration Rate 72 mL/min (>60); Est Glom Filt Rate - Afr Amer 88 mL/min (>60); Estimated Creatinine Clearance 83.91 ml/min; Glucose 89 mg/dL (74-106); Potassium 3.8 mmol/L (3.5-5.1); Sodium Level 135 mmol/L (136-145)
[2020-12-08 06:40] VITALS: O2SAT 92
[2020-12-08 07:23] VITALS: BP 119/61; PULSE 86; RESP 18; TEMP 36.9; O2SAT 94
[2020-12-08 08:19] VITALS: PULSE 86; O2SAT 94
[2020-12-08] MEDS: Fenofibrate 145 MG Tablet PO (08:44)
[2020-12-08] MEDS: Morphine 4 MG/ML Syringe IV (08:44)
[2020-12-08] MEDS: Senna/Docusate Sodium 1 Tablet 2 TABLET PO (08:44)
[2020-12-08] MEDS: Lisinopril 40 MG Tablet PO (08:44)
[2020-12-08] MEDS: 0.9% Saline Lock 10 ML Syringe IV ×2 (08:47→13:35)
[2020-12-08] MEDS: LORazepam 1 MG Tablet PO (08:51)
--- NOTE | 2020-12-08 08:59 | PCM.PROGNOTE ---
Subjective: Chief complaint: Follow-up after consultation for postoperative medical management. Patient seen and examined. No acute events overnight. This morning, he is still complaining of significant abdominal and back pain, no improvement compared to yesterday. Denied nausea vomiting. He has been having passing flatus, had bowel movement yesterday. He mentioned that he could not sleep last night. His vital signs are stable. - Physical Exam Vitals/I&O's: Vital Signs Temp Pulse Resp BP Pulse Ox 98.4 F 86 18 119/61 94 12/08/20 07:23 12/08/20 08:19 12/08/20 07:23 12/08/20 07:23 12/08/20 08:19 Oxygen Flow Rate (L/min) 1 Oxygen Delivery Method Room Air Weight: 272 lb 4.334 oz Body Mass Index (BMI) 39.0 Intake and Output for Last 24 Hours 12/06/20 12/07/20 12/08/20 23:59 23:59 23:59 Intake Total 1807.25 / 1807.25 1845 / 1845 1700 / 1700 Output Total 2600 / 2600 1400 / 1400 650 / 650 Balance -792.75 / -792.75 445 / 445 1050 / 1050 General: Alert, Oriented x3, Cooperative, No apparent distress HEENT: Atraumatic, PERRLA, EOMI, Normocephalic Oral: Moist Mucosa, No Gingival or Mucosal Lesions/ Ulcerations Neck: Supple, No JVD, Negative Carotid Bruits, Trachea Midline, Thyroid Normal Size and Texture Lungs: Clear to auscultation, Normal air movement, No rhonchi, No wheeze, No rales, Diminished Cardiovascular: Regular rate, Regular Rhythm, Normal S1, Normal S2, PMI Normal Abdomen: Bowel Sounds Present, Soft, No Hepato-splenomegaly, Distended, Obese, Tender Extremities: No clubbing, No cyanosis, No edema Skin: No rashes, No breakdown Lymphatic: No Cervical, Supraclavicular, or Inguinal Adenopathy Neurological: Cranial nerves II-XII grossly intact, Neuro grossly intact Psych/Mental Status: Normal Affect, Appropriate Microbiology Past 72 Hours 12/04/20 14:00 Interface Orders SARS-CoV-2 Antigen (Rapid) - Final Laboratory Results 12/06/20 05:46: Diff Path Review Reviewed 12/08/20 05:15: WBC 12.6 H, RBC 4.05 L, Hgb 11.8 L, Hct 36.4 L, MCV 89.9, MCH 29.1, MCHC 32.4, RDW Std Deviation 41.1, RDW Coeff of Lester 12.4, Plt Count 222, MPV 10.0, Immature Gran % (Auto) 0.300, Neut % (Auto) 67.4, Lymph % (Auto) 21.0, [place] % (Auto) 10.3 H, Eos % (Auto) 0.8, Baso % (Auto) 0.2, Absolute Neuts (auto) 8.5 H, Absolute Lymphs (auto) 2.65, Nucleated RBC % 0 12/08/20 05:15: Sodium 135 L, Potassium 3.8, Chloride 103, Carbon Dioxide 26.0, Anion Gap 6, BUN 16, Creatinine 1.16, Estim Creat Clear Calc 83.91, Est GFR (MDRD) Af Amer 88, Est GFR (MDRD) Non-Af 72, BUN/Creatinine Ratio 13.8, Glucose 89, Calcium 8.7 Current Medications Diazepam (Diazepam 5 Mg Tablet) 5 mg PO Q6H PRN PRN PRN Reason: Muscle Spasms Last Admin: 12/08/20 04:27 Dose: 5 mg Documented by: Fenofibrate ([facility] 145 Mg Tablet) [facility] Last Admin: 12/08/20 08:44 Dose: 145 mg Documented by: Gabapentin (Gabapentin 300 Mg Capsule) 300 mg PO TID PRN PRN Reason: BACK PAIN Last Admin: 12/08/20 04:27 Dose: 300 mg Documented by: Lisinopril (Lisinopril 40 Mg Tablet) 40 mg PO DAILY [facility] Last Admin: 12/08/20 08:44 Dose: 40 mg Documented by: Morphine Sulfate (Morphine 4 Mg/Ml Syringe) 2 - 4 mg IV Q2H PRN PRN PRN Reason: Pain Score 6-10 Last Admin: 12/08/20 08:44 Dose: 4 mg Documented by: Morphine Sulfate (Morphine 2 Mg/Ml Syringe) 2 - 4 mg IV Q2H PRN PRN PRN Reason: Pain Score 6-10 Last Admin: 12/07/20 05:40 Dose: 4 mg Documented by: Ondansetron HCl (Ondansetron 4 Mg/2 Ml Vial) 4 mg IV Q8H PRN PRN PRN Reason: NAUSEA Oxycodone HCl (Oxycodone 5 Mg Tablet) 10 mg PO Q4H PRN PRN PRN Reason: Pain Score 6-10 Last Admin: 12/08/20 06:17 Dose: 10 mg Documented by: Senna/Docusate Sodium (Senna/Docusate Sodium 1 Tablet) 2 tablet PO BID [facility] Last Admin: 12/08/20 08:44 Dose: 2 tablet Documented by: Sodium Chloride (0.9% Nacl Peripheral Flush Adult/Peds) 5 - 15 ml IV UD PRN PRN Reason: SALINE FLUSH Last Admin: 12/07/20 14:19 Dose: 10 ml Documented by: Sodium Chloride (0.9% Saline Lock 10 Ml Syringe) 10 - 40 ml IV UD PRN PRN Reason: SALINE FLUSH Last Admin: 12/08/20 08:47 Dose: 10 ml Documented by: Tizanidine HCl (Tizanidine Hcl 2 Mg Tablet) 4 mg PO QHS [facility] Last Admin: 12/07/20 21:11 Dose: 4 mg Documented by: Tramadol HCl (Tramadol 50 Mg Tablet) 50 - 100 mg PO Q6H PRN PRN PRN Reason: Pain Score 4-5 Last Admin: 12/07/20 17:29 Dose: 100 mg Documented by: Trazodone HCl (Trazodone 50 Mg Tablet) 50 mg PO QHS [facility] Last Admin: 12/07/20 21:11 Dose: 50 mg Documented by: Zolpidem Tartrate (Zolpidem Tartrate 5 Mg Tablet) 5 mg PO QHS PRN PRN PRN Reason: INSOMNIA Medical Necessity - Tobacco Use Smoking Status: Heavy Smoker (>10/day) Assessment/Plan All Active Problems (Last Updated 08/30/20 @ 15:22 by Skylar Joseph) Bulging lumbar disc (Acute) Back pain (Acute) This is a 45 years old male patient underwent elective anterior lumbar L4-L5 fusion, L4-L5 laminectomy for lateral L4-L5 disc herniation with radiculopathy and neurological deficit and I am seeing this patient for follow-up after consultation for postoperative medical management. #1 status post anterior lumbar L4-L5 fusion/posterior fusion/L4-L5 laminectomy: This was done for L4-L5 disc herniation with radiculopathy and neurological deficit, postoperative day 3. Remained on IV morphine and tramadol as well as oxycodone as needed for pain. No improvement compared to yesterday, still having significant abdominal pain. He has been passing flatus, had bowel movement yesterday. His vital signs are stable. Repeat CBC and BMP from today reviewed, unremarkable apart from leukocytosis but WBC is trending down. Spine surgery on the case. Plan to continue same treatment, ambulate, will try 1 dose of p.o. Ativan to help him sleep. #2 hypertension: Currently, blood pressure stable. Continue lisinopril. #3 stage III chronic kidney disease: Baseline creatinine has been around 1.4 to 1.7 mg/dL. Today's creatinine is 1.16, stable at baseline. #4 history of opioid abuse: He is off Subutex, on IV morphine and oxycodone as needed. #5 hyperlipidemia: Continue fenofibrate. #6 DVT prophylaxis: SCDs. This note was generated with [employer] dictation software. It may contain incorrect words, spelling, and punctuation that were not noted in checking the note before signing. Inpatient E&M: 29358 Subs Hosp L2
[2020-12-08 11:30] VITALS: BP 124/71; PULSE 87; RESP 18; TEMP 36.6; O2SAT 95
--- NOTE | 2020-12-08 11:47 | DCINST_ITS ---
Discharge Diet: Light diet - advance as tolerated, Soft diet Discharge Activity: May Not Drive, May not drive while taking narcotic pain medications. Call your doctor if your incision/area has: Continuous Slow Oozing, Increased Pain/ Swelling Call your doctor if you observe: Fever of 101 or Higher, Shortness of breath, Dizziness, Fainting spells, Chest pain, Calf discomfort Cleanse incision/area with: Soap & Water Additional Dressing/Incision Instructions:: remove dressing in 5 days Allergies/Adverse Reactions: Allergies No Known Allergies Allergy (Verified 12/05/20 06:22) Medications to take at Discharge Buprenorphine HCl/Naloxone HCl [Suboxone 2 mg-0.5 mg Sl Film] 1 ea SL DAILY 12/28/18 Fenofibrate,Micronized [Fenofibrate] 134 mg PO DAILY 12/28/18 Lisinopril 40 mg PO DAILY 12/28/18 Tizanidine HCl [Zanaflex] 4 mg PO QHS 12/28/18 traZODone [Desyrel] 50 mg PO QHS 12/28/18 Ergocalciferol [Vitamin D] 50,000 unit PO Q7D 05/20/19 albuterol sulfate 90 mcg/actuation aerosol inhaler 2 puff INHALATION .four times daily PRN g 08/30/20 Orders to be completed after discharge: 12 Lead EKG [[facility]] Time Frame: 11/27/20, Location: None Selected Primary Care Physician: Ever Martínez MD [Primary Care Provider] - Test Results: Test results from this visit will be discussed in further detail at your follow- up appointment, if applicable. Please Follow Up With: Dr Humphries When: scheduled Proposed Discharge Date: 12/08/20
--- NOTE | 2020-12-08 11:55 | CASEMGMT ---
ADAN GONZALEZ recieved script for FWW. RN LISA in to discuss with patient and provide list for DME. Pt wishes to have the script and he will get it filled if needed. No further concerns or questions at this time.
--- NOTE | 2020-12-08 11:56 | DS.PCM_ITS ---
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 Preoperative diagnosis was herniated disc L5 4 5 with severe right L4 radiculopathy.*Diagnoses were the same. Patient is 1 hospital he was managed by hospitalist. Course was only remarkable for an ileus which of course is expected and every 1 of these 360 degree fusions. Perhaps it was unremarkable. At discharge the patient's ileus is resolved. He was told to advance his diet tomorrow. Pain medication for about 1 week. Then to follow-up with his regular doctor the gives him the Suboxone. His charges incision is healing well and his dressing is dry. Told to remove the dressing in 5 days. At that point time he can start taking showers. He has an appointment to see me in my office 1 week from this coming Friday. He is not to drive yet. Told to call my office if he has any problems or something does not seem right. - Physical Exam Vitals/I&O's: Vital Signs Temp Pulse Resp BP Pulse Ox 97.8 F 87 18 124/71 H 95 12/08/20 11:30 12/08/20 11:30 12/08/20 11:30 12/08/20 11:30 12/08/20 11:30 Oxygen Flow Rate (L/min) 1 Oxygen Delivery Method Room Air Weight: 272 lb 4.334 oz Body Mass Index (BMI) 39.0 Intake and Output for Last 24 Hours 12/06/20 12/07/20 12/08/20 23:59 23:59 23:59 Intake Total 1807.25 / 1807.25 1845 / 1845 1700 / 1700 Output Total 2600 / 2600 1400 / 1400 650 / 650 Balance -792.75 / -792.75 445 / 445 1050 / 1050 Microbiology Past 72 Hours 12/04/20 14:00 Interface Orders SARS-CoV-2 Antigen (Rapid) - Final Laboratory Results 12/06/20 05:46: Diff Path Review Reviewed 12/08/20 05:15: WBC 12.6 H, RBC 4.05 L, Hgb 11.8 L, Hct 36.4 L, MCV 89.9, MCH 29.1, MCHC 32.4, RDW Std Deviation 41.1, RDW Coeff of Lester 12.4, Plt Count 222, MPV 10.0, Immature Gran % (Auto) 0.300, Neut % (Auto) 67.4, Lymph % (Auto) 21.0, [place] % (Auto) 10.3 H, Eos % (Auto) 0.8, Baso % (Auto) 0.2, Absolute Neuts (auto) 8.5 H, Absolute Lymphs (auto) 2.65, Nucleated RBC % 0 12/08/20 05:15: Sodium 135 L, Potassium 3.8, Chloride 103, Carbon Dioxide 26.0, Anion Gap 6, BUN 16, Creatinine 1.16, Estim Creat Clear Calc 83.91, Est GFR (MDRD) Af Amer 88, Est GFR (MDRD) Non-Af 72, BUN/Creatinine Ratio 13.8, Glucose 89, Calcium 8.7 Current Medications Diazepam (Diazepam 5 Mg Tablet) 5 mg PO Q6H PRN PRN PRN Reason: Muscle Spasms Last Admin: 12/08/20 10:26 Dose: 5 mg Documented by: Fenofibrate ([facility] 145 Mg Tablet) [facility] Last Admin: 12/08/20 08:44 Dose: 145 mg Documented by: Gabapentin (Gabapentin 300 Mg Capsule) 300 mg PO TID PRN PRN Reason: BACK PAIN Last Admin: 12/08/20 04:27 Dose: 300 mg Documented by: Lisinopril (Lisinopril 40 Mg Tablet) 40 mg PO DAILY [facility] BEDS AT [facility] Last Admin: 12/08/20 08:44 Dose: 40 mg Documented by: Morphine Sulfate (Morphine 4 Mg/Ml Syringe) 2 - 4 mg IV Q2H PRN PRN PRN Reason: Pain Score 6-10 Last Admin: 12/08/20 08:44 Dose: 4 mg Documented by: Morphine Sulfate (Morphine 2 Mg/Ml Syringe) 2 - 4 mg IV Q2H PRN PRN PRN Reason: Pain Score 6-10 Last Admin: 12/07/20 05:40 Dose: 4 mg Documented by: Ondansetron HCl (Ondansetron 4 Mg/2 Ml Vial) 4 mg IV Q8H PRN PRN PRN Reason: NAUSEA Oxycodone HCl (Oxycodone 5 Mg Tablet) 10 mg PO Q4H PRN PRN PRN Reason: Pain Score 6-10 Last Admin: 12/08/20 10:26 Dose: 10 mg Documented by: Senna/Docusate Sodium (Senna/Docusate Sodium 1 Tablet) 2 tablet PO BID [facility]S [facility]CLUDE 234 BEDS AT THE [facility] Last Admin: 12/08/20 08:44 Dose: 2 tablet Documented by: Sodium Chloride (0.9% Nacl Peripheral Flush Adult/Peds) 5 - 15 ml IV UD PRN PRN Reason: SALINE FLUSH Last Admin: 12/07/20 14:19 Dose: 10 ml Documented by: Sodium Chloride (0.9% Saline Lock 10 Ml Syringe) 10 - 40 ml IV UD PRN PRN Reason: SALINE FLUSH Last Admin: 12/08/20 08:47 Dose: 10 ml Documented by: Tizanidine HCl (Tizanidine Hcl 2 Mg Tablet) 4 mg PO QHS [facility]CLUDE 234 BEDS AT THE [facility] Last Admin: 12/07/20 21:11 Dose: 4 mg Documented by: Tramadol HCl (Tramadol 50 Mg Tablet) 50 - 100 mg PO Q6H PRN PRN PRN Reason: Pain Score 4-5 Last Admin: 12/07/20 17:29 Dose: 100 mg Documented by: Trazodone HCl (Trazodone 50 Mg Tablet) 50 mg PO QHS [facility]CLUDE 234 BEDS AT THE [facility] Last Admin: 12/07/20 21:11 Dose: 50 mg Documented by: Zolpidem Tartrate (Zolpidem Tartrate 5 Mg Tablet) 5 mg PO QHS PRN PRN PRN Reason: INSOMNIA Discharge Diet: Light diet - advance as tolerated, Soft diet Discharge Activity: May Not Drive, May not drive while taking narcotic pain medications. Call your doctor if your incision/area has: Continuous Slow Oozing, Increased Pain/ Swelling Call your doctor if you observe: Fever of 101 or Higher, Shortness of breath, Dizziness, Fainting spells, Chest pain, Calf discomfort Cleanse incision/area with: Soap & Water Additional Dressing/Incision Instructions:: remove dressing in 5 days Home Medications: Medications to take at Discharge Buprenorphine HCl/Naloxone HCl [Suboxone 2 mg-0.5 mg Sl Film] 1 ea SL DAILY Fenofibrate,Micronized [Fenofibrate] 134 mg PO DAILY 12/28/18 Lisinopril 40 mg PO DAILY 12/28/18 Tizanidine HCl [Zanaflex] 4 mg PO QHS 12/28/18 traZODone [Desyrel] 50 mg PO QHS 12/28/18 Ergocalciferol [Vitamin D] 50,000 unit PO Q7D 05/20/19 albuterol sulfate 90 mcg/actuation aerosol inhaler 2 puff INHALATION .four times daily PRN g 08/30/20 Other Amb Orders: 12 Lead EKG [[facility]] Time Frame: 11/27/20, Location: None Selected Primary Care Physician: Ever Martínez MD [Primary Care Provider] - Please Follow Up With: Dr Humphries When: scheduled Medical Necessity - Tobacco Use Smoking Status: Heavy Smoker (>10/day) Meaningful Use Info Meaningful Use Diagnoses (Choose all that apply): None applicable
[2020-12-08] MEDS: Morphine 2 MG/ML Syringe IV (13:34)
--- NOTE | 2020-12-08 13:38 | NURSING ---
pt called out c/o extreme pain, explained that oxyir was not yet due and pt requesting morphine dose. again discussed with patient the benefits of maintaining pain with oral regimen considering plan for DC home this afternoon but pt asked for morphine. have encouraged pt to be ambulating and sitting in recliner several times this shift and he refuses at this time. attempted to provide education regarding activity and pt refuses
--- NOTE | 2020-12-08 14:16 | PHA.DC.MR ---
Pharmacy Service has performed discharge medication reconciliation for this patient. The patient's discharge medication list was reviewed for discrepancies and discrepancies were resolved. Home Medications Buprenorphine HCl/Naloxone HCl [Suboxone 2 mg-0.5 mg Sl Film] 1 ea SL DAILY 12/28/18 Fenofibrate,Micronized [Fenofibrate] 134 mg PO DAILY 12/28/18 Lisinopril 40 mg PO DAILY 12/28/18 Tizanidine HCl [Zanaflex] 4 mg PO QHS 12/28/18 traZODone [Desyrel] 50 mg PO QHS 12/28/18 Ergocalciferol [Vitamin D] 50,000 unit PO Q7D 05/20/19 albuterol sulfate 90 mcg/actuation aerosol inhaler 2 puff INHALATION .four times daily PRN g 08/30/20
[2020-12-08 15:00] VITALS: BP 122/84; PULSE 91; RESP 16; TEMP 36.9; O2SAT 98
== END 2020-12-08 15:38 | disposition home or self-care (01) | DRG 455 ==
LOC: ACINP 05:54 → MS3 15:48
PROVIDERS: Anesthesiology; Family Medicine; Hospitalist; Admitting Provider Orthopaedic Surgery; PCP Family Medicine; Referring Provider Orthopaedic Surgery; Visit Provider Orthopaedic Surgery
PROC: 0SG00A0 Fusion of Lumbar Vertebral Joint with Interbody Fusion Device, Anterior Approach, Anterior Column, Open Approach (ICD-10-PCS; principal; 2020-12-05 07:00)
DX: M51.16 Intervertebral disc disorders with radiculopathy, lumbar region (principal); M46.96 Unspecified inflammatory spondylopathy, lumbar region; G89.29 Other chronic pain; I12.9 Hypertensive chronic kidney disease with stage 1 through stage 4 chronic kidney disease, or unspecified chronic kidney disease; N18.30 Chronic kidney disease, stage 3 unspecified; E78.5 Hyperlipidemia, unspecified; H90.2 Conductive hearing loss, unspecified; K21.9 Gastro-esophageal reflux disease without esophagitis; F17.210 Nicotine dependence, cigarettes, uncomplicated; Z86.59 Personal history of other mental and behavioral disorders; Z79.899 Other long term (current) drug therapy
CPT/HCPCS: 36415; 72020; 80048; 82962; 83735; 85025; 86703; 86704; 86705; 86706; 86708; 86709; 86803; 87081; 87340; 87426; 88304; 93005; 97110; 97162; 97530; 99251; 99406; C1713; C9803; J7030; J7040; J7120; A4216; G0463; J0330; J2405

== ENCOUNTER 2021-07-09 02:44 | Observation (INO) | payer OTHER, SELFPAY ==
[2021-07-09] VITALS (8 sets, daily range): BP systolic 104–126; BP diastolic 72–83; PULSE 84–99; RESP 18–22; TEMP 36.7–39.4; O2SAT 92–97; BMI 38.2; BMI 37.9
--- NOTE | 2021-07-09 03:08 | RAD_ITS ---
STUDY: X-RAY CHEST REASON FOR EXAM: Male, 46 years old. Short of breath. TECHNIQUE: AP COMPARISON: 11/12/2017 CXR FINDINGS: No apparent pneumothorax, pneumonia, pleural effusion, or edema. Cardiac silhouette, darrell and mediastinal contours are within normal limits. No acute osseous abnormality. No evidence of free air under the diaphragm. RAD/Chest 1 View (Portable) IMPRESSION: Negative chest radiograph. Electronically Signed: Yehuda Moser MD at 4:02 EDT Tel , Service support ,
--- NOTE | 2021-07-09 03:10 | ED.VIS.DYS ---
HPI History of Present Illness Chief Complaint: Shortness of Breath Detail of Chief Complaint: Shortness of breath Informant: patient Narrative Narrative: Patient presents to the emergency department complaint of shortness of breath that started yesterday. Patient states that he was diagnosed with Covid yesterday. Patient's been having Covid symptoms for 2 to 3 days. Patient's developed a fever today. He complains of body aches and headache. Patient states his also has Covid. Patient complains of some nausea and intermittent episode of vomiting and diarrhea. Patient has cough that is mostly nonproductive. Patient presents via EMS for evaluation. EMS on arrival noted a pulse ox of 89% on room air. [facility] Medical History (Updated 07/09/21 @ 05:[address] Ariel Ny, ) H/O: substance abuse Home Medications buprenorphine-naloxone 1 ea SL DAILY 12/28/18 [History Last Taken Unknown] fenofibrate micronized 134 mg PO DAILY 12/28/18 [History Last Taken 06/02/19] lisinopril 40 mg PO DAILY 12/28/18 [History Last Taken 06/02/19] tizanidine 4 mg PO QHS 12/28/18 [History Last Taken Unknown] trazodone 50 mg PO QHS 12/28/18 [History Last Taken Unknown] ergocalciferol (vitamin D2) 50,000 unit PO Q7D 05/20/19 [History Last Taken 05/29/19] albuterol sulfate 90 mcg/actuation aerosol inhaler 2 puff INHALATION .four times daily PRN g 08/30/20 [History Last Taken Unknown] methylprednisolone 4 mg tablets in a dose pack See Rx Instructions PO PER PKG DIR #21 tab 01/01/21 [Rx Last Taken Unknown] Allergy/AdvReac Type Severity Reaction Status Date / Time No Known Allergies Allergy Verified 07/09/21 02:50 Family History (Updated 08/30/20 @ 15:23 by Skylar Joseph) Mother Lung cancer Brain tumor Grandmother Rheumatoid arthritis Grandfather Rheumatoid arthritis Other CVA (cerebral vascular accident) Cancer Hypertension Surgical History H/O right wrist surgery H/O rotator cuff surgery History of hip replacement Total knee replacement status Social History (Updated 04/26/21 @ 12:[address] Bigg Humphries, DO) household members: spouse and children housing: house current occupational status: employed Smoking Status: Heavy Smoker (>10/day) Tobacco: How many years used: 20 alcohol intake: never substance use type: does not use and painkillers what type of physical activity do you participate in: aerobics and weight training frequency: 5-6 times per week do you feel safe at home: Yes ROS ROS ED Constitutional Constitutional ED: Reports systems reviewed and no addt'l complaints, except as documented and fever(s); Denies body ache(s), change in weight or chills Eyes Eyes: Denies acute decrease in peripheral vision, change in vision, double vision or loss of vision ENT ENT ED: Reports none; Denies ear pain, lip swelling, loss taste/smell, neck pain, otalgia or sore throat Cardiovascular Cardiovascular: Reports none; Denies abdominal pain, chest pain with activity, leg edema, lightheadedness, palpitations, rapid heart rate or syncope Respiratory/Chest Respiratory/Chest: Reports none, cough and dyspnea; Denies change in mental status, dry cough, hemoptysis, shortness of breath at rest or shortness of breath with exertion Gastrointestinal Gastrointestinal: Reports none, diarrhea, nausea and vomiting; Denies abdominal pain, change in stool character, hematemesis, hematochezia, melena or rectal bleeding Genitourinary Genitourinary ED: Reports none; Denies abdominal discomfort, anuria, dysuria, genital pain or polyuria Musculoskeletal Musculoskeletal: Reports none and myalgias; Denies arthralgias, back pain, difficulty walking, extremity pain or muscle weakness Integumentary Reports none; Denies abscess or rash Neurologic Neurologic: Reports none and headache(s); Denies abnormal gait, confusion, focal weakness, frequent falls, loss of vision, numbness, paresthesias, radicular pain, vertigo or weakness Psychiatric Psychiatric: Reports systems reviewed and no addt'l complaints, except as documented and none; Denies behavioral changes, confusion, difficulty concentrating, hallucinations, suicidal ideation, tactile hallucinations or visual hallucinations Endocrine Endocrinology: Denies none, cold intolerance, excessive sweating, fatigue or heat intolerance Hematologic/Lymphatic Hematologic/Lymphatic: Reports none; Denies anemia, easy bleeding or easy bruising Allergic/Immunologic Allergic/Immunologic ED: Denies as per HPI, none, lip swelling, mouth swelling, throat swelling, tongue swelling or hives EXAM Physical Exam Const Vital Signs: 07/09/21 02:45 07/09/21 02:53 07/09/21 03:45 Temperature 103 F H 100.9 F H Temperature Source Oral Oral Pulse Rate 99 85 Respiratory Rate 22 H 20 H Respiratory Effort Normal Non-Labored Respiratory Depth Normal Respiratory Pattern Normal Blood Pressure 108/78 112/72 Blood Pressure Mean 88 85 Pulse Ox 97 92 Oxygen Delivery Method Room Air Room Air Room Air Oxygen Flow Rate (L/min) 07/09/21 04:45 Temperature 99.5 F H Temperature Source Oral Pulse Rate 84 Respiratory Rate 20 H Respiratory Effort Respiratory Depth Respiratory Pattern Blood Pressure 104/74 Blood Pressure Mean 84 Pulse Ox 94 Oxygen Delivery Method Nasal Cannula Oxygen Flow Rate (L/min) 2 Positive well nourished and well developed General Appearance ED: well developed and NAD HEENT Reports TM's clear and moist mucous membranes normocephalic and atraumatic; Negative for trauma or tenderness Tympanic Membrane ED: Yes TM's clear Eyes PERRL and EOMs intact bilaterally General Eye ED: Negative for pale conjunctiva or scleral icterus Neck no lymphadenopathy, supple and no JVD General: Negative for tenderness Chest Wall inspection of chest normal and palpation of chest normal Chest: Negative for tenderness Resp normal respiratory effort and clear to auscultation bilaterally Effort and Inspection: Negative for respiratory distress or pain with movement Auscultation: Negative for rhonchi, wheezes or diminished lung sounds Cardio regular rate, regular rhythm, S1 normal heart sound, S2 normal heart sound and no murmurs Peripheral Pulses: pulses 2+ throughout GI normal to inspection, nondistended, normoactive bowel sounds, soft to palpation, non-tender, non-distended and no masses Back/Spine no CVA tenderness and no thoracic nor lumbar tenderness Extremity normal to inspection General Extremety ED: Negative for edema General Extremity: Negative for edema Neuro oriented x3, CN's II-XII intact bilaterally, no sensory deficits noted and gait normal Sensorium / Orientation: awake, alert, oriented to person, oriented to place and oriented to time Motor Exam: strength 5/5 throughout and strength abnormal Psych mental status grossly normal Skin no rashes or lesions noted and no wounds MDM MDM MDM Narrative Medical decision making narrative: Case will be discussed with hospitalist evaluate for admission given the patient's hypoxic. Patient was too weak to stand and ambulate in room. Patient complained of dizziness. On arrival he did receive Tylenol for his fever. Patient was placed on 2 L nasal cannula O2. Patient was started on Decadron. Lab Data Attestation: I reviewed the patient's lab results. Labs: Laboratory Results - last 24 hr 07/09/21 07/09/21 07/09/21 02:56 02:56 02:56 WBC 4.1 L RBC 4.93 Hgb 14.2 Hct 43.7 MCV 88.6 MCH 28.8 MCHC 32.5 RDW Std Deviation 44.2 H RDW Coeff of Lester 13.5 Plt Count 147 L MPV 10.7 Immature Gran % (Auto) 0.200 Neut % (Auto) 51.4 Lymph % (Auto) 41.1 H [place] % (Auto) 7.1 Eos % (Auto) 0.0 Baso % (Auto) 0.2 Absolute Neuts (auto) 2.1 Absolute Lymphs (auto) 1.67 Nucleated RBC % 0 D-Dimer Quant (PE/DVT) 1.54 H* Sodium 132 L Potassium 4.4 Chloride 98 Carbon Dioxide 26.0 Anion Gap 8 BUN 20 H Creatinine 1.71 H Estim Creat Clear Calc 56.33 Est GFR (MDRD) Af Amer 56 L Est GFR (MDRD) Non-Af 46 L BUN/Creatinine Ratio 11.7 Glucose 96 Lactic Acid Calcium 8.5 07/09/21 02:56 WBC RBC Hgb Hct MCV MCH MCHC RDW Std Deviation RDW Coeff of Lester Plt Count MPV Immature Gran % (Auto) Neut % (Auto) Lymph % (Auto) [place] % (Auto) Eos % (Auto) Baso % (Auto) Absolute Neuts (auto) Absolute Lymphs (auto) Nucleated RBC % D-Dimer Quant (PE/DVT) Sodium Potassium Chloride Carbon Dioxide Anion Gap BUN Creatinine Estim Creat Clear Calc Est GFR (MDRD) Af Amer Est GFR (MDRD) Non-Af BUN/Creatinine Ratio Glucose Lactic Acid 1.5 Calcium Radiography Chest X-Ray - ED: 1 View Diagnostic Testing: Radiology Impression Chest X-Ray 07/09/21 03:08 IMPRESSION: Negative chest radiograph. Electronically Signed: Yehuda Moser MD at 4:02 EDT Tel , Service support , 1 view chest x-ray obtained interpreted by myself as mildly increased markings in both lower lobes consistent with early infiltrates. Radiology felt there was nothing acute on x-ray. Discharge Plan Triage Chief Complaint: Shortness of Breath ED Provider: Ariel Ny Dx/Rx/DC Orders Clinical Impression: Pneumonia due to 2019 novel coronavirus, Hypoxemia Prescriptions: No Action albuterol sulfate 90 mcg/actuation HFA aerosol inhaler 2 puff INHALATION .four times daily PRN (Reason: shortness of breath or wheezing) RF: 0 methylprednisolone [Medrol (Robson)] 4 mg tablets,dose pack See Rx Instructions PO PER PKG DIR Qty: 21 RF: 0 trazodone 50 MG tablet 50 mg PO QHS RF: 0 tizanidine 4 MG tablet 4 mg PO QHS RF: 0 fenofibrate micronized 134 MG capsule 134 mg PO DAILY RF: 0 lisinopril 40 MG tablet 40 mg PO DAILY RF: 0 buprenorphine-naloxone 1 EACH film 1 ea SL DAILY RF: 0 ergocalciferol (vitamin D2) 50,000 UNIT capsule 50,000 unit PO Q7D RF: 0 Primary Care Provider: Ever Martínez Referrals: Ever Martínez MD [Primary Care Provider] - Disposition Disposition: Acute Care Hospital [facility]
[2021-07-09 03:29] LABS: Absolute Lymphocyte Count 1.67 X10^3/uL (0.83-4.51); Absolute Neutrophil Count 2.1 X10^3/uL (2.0-7.7); Basophil# 0.01 X10^3/uL; Basophil% 0.2 % (0-1); Hematocrit 43.7 % (40-54); Hemoglobin 14.2 g/dL (13.0-16.5); Lymphocyte # 1.67 X10^3/ul (0.83-4.51); Lymphocyte % 41.1 % (19-41); Mean Corp Hgb Conc 32.5 g/dL (32-36); Mean Corpuscular Hgb 28.8 pg (27.0-32.0); Mean Corpuscular Volume 88.6 fL (80-94); Mean Platelet Vol. 10.7 fl (6.2-12.0); Monocyte# 0.29 X10^3/uL; Monocyte% 7.1 % (0-10); NRBC Flagged by Analyzer 0 % (0-5); Neutrophil # 2.08 X10^3/uL (2.7-7.7); Neutrophil % 51.4 % (47-70); Platelet Count 147 K/mm3 (150-450); RBC Distribution Width CV 13.5 % (11.6-14.6); RBC Distribution Width SD 44.2 fl (35.1-43.9); Red Blood Count 4.93 M/mm3 (4.6-6.2); White Blood Count 4.1 K/mm3 (4.4-11.0)
[2021-07-09] MEDS: Ondansetron 4 MG/2 ML Vial IV (03:29)
[2021-07-09] MEDS: Acetaminophen 500 MG Tablet 1000 MG PO (03:29)
[2021-07-09 03:43] LABS: Anion Gap 8 (5-15); BUN 20 mg/dL (7-18); BUN/Creat Ratio 11.7 RATIO (10-20); Calcium,Total 8.5 mg/dL (8.5-10.1); Chloride 98 mmol/L (98-107); Creatinine, Serum 1.71 mg/dL (0.70-1.30); EST Glomerular Filtration Rate 46 mL/min (>60); Est Glom Filt Rate - Afr Amer 56 mL/min (>60); Estimated Creatinine Clearance 56.33 ml/min; Glucose 96 mg/dL (74-106); Potassium 4.4 mmol/L (3.5-5.1); Sodium Level 132 mmol/L (136-145)
[2021-07-09] MEDS: 0.9% Normal Saline 1,000 ML 150 ML IV (03:45)
[2021-07-09 04:06] LABS: Lactic Acid 1.5 mmol/L (0.4-1.9)
[2021-07-09 04:16] LABS: D-Dimer Quantitative (DVT/PE) 1.54 FEU/ug/m (0.27-0.49)
--- NOTE | 2021-07-09 04:16 | CT_ITS ---
STUDY: CTA CHEST REASON FOR EXAM: Male, 46 years old. Covid. Weakness. RADIATION DOSAGE (If Supplied By Facility): CTDIvol = ( 22.17 ) mGy, DLP = ( 576.66 ) mGycm TECHNIQUE: The examination was performed with the intravenous administration of IV 100mL Isovue-370. Post-processing of the angiographic images was performed, with MIP reconstructed images. Individualized dose optimization techniques were used for this CT. COMPARISON: Chest radiograph earlier same date. FINDINGS: Heart and great vessels: No central or lobar pulmonary embolus. More peripheral pulmonary artery branches are not well opacified and not well evaluated. No thoracic aortic aneurysm or dissection. No evidence of right heart strain. Lungs, pleura: Several small rounded groundglass opacities favoring the subpleural regions compatible with Covid pneumonia. No consolidation, pneumothorax, or pleural effusion. Central airways patent. Mediastinum: No adenopathy or mass or hematoma. Osseous:No fracture or acute osseous abnormality. Chest wall: No concerning findings. Upper abdomen: No acute findings. Hepatic steatosis partially visible. CT/CTA Chest W/WO Contrast IMPRESSION: No central or lobar pulmonary embolus. More peripheral pulmonary artery branches are not well opacified and not well evaluated. Covid pneumonia. Hepatic steatosis partially visible. Electronically Signed: Yehuda Moser MD at 5:26 EDT Tel , Service support ,
[2021-07-09] MEDS: dexAMETHasone 4 MG Tablet 6 MG PO (04:52)
--- NOTE | 2021-07-09 05:48 | HP.PCM.HOS_ITS ---
HPI - General General Date of Admission: 07/09/21 Date of Service: 07/09/21 Chief Complaint: Shortness of breath HPI Narrative YURI LANDERS, is a 46 M with a significant history of drug abuse and reportedly on Suboxone who presents to emergency department with progressive worsening shortness of breath that started evening of 07/08/2021. Associated with his symptoms is a nonproductive cough. Further, he has a fever, fatigue, chills and anorexia. He denies dysgeusia or anosmia. He is on vaccinated against COVID-19 virus. [facility] Medical History H/O: substance abuse Home Medications buprenorphine-naloxone 1 ea SL DAILY 12/28/18 [History Last Taken Unknown] fenofibrate micronized 134 mg PO DAILY 12/28/18 [History Last Taken 06/02/19] lisinopril 40 mg PO DAILY 12/28/18 [History Last Taken 06/02/19] tizanidine 4 mg PO QHS 12/28/18 [History Last Taken Unknown] trazodone 50 mg PO QHS 12/28/18 [History Last Taken Unknown] ergocalciferol (vitamin D2) 50,000 unit PO Q7D 05/20/19 [History Last Taken 05/29/19] albuterol sulfate 90 mcg/actuation aerosol inhaler 2 puff INHALATION .four times daily PRN g 08/30/20 [History Last Taken Unknown] methylprednisolone 4 mg tablets in a dose pack See Rx Instructions PO PER PKG DIR #21 tab 01/01/21 [Rx Last Taken Unknown] Allergy/AdvReac Type Severity Reaction Status Date / Time No Known Allergies Allergy Verified 07/09/21 02:50 Family History Mother Lung cancer Brain tumor Grandmother Rheumatoid arthritis Grandfather Rheumatoid arthritis Other CVA (cerebral vascular accident) Cancer Hypertension Surgical History H/O right wrist surgery H/O rotator cuff surgery History of hip replacement Total knee replacement status Social History household members: spouse and children housing: house current occupational status: employed Smoking Status: Heavy Smoker (>10/day) Tobacco: How many years used: 20 alcohol intake: never substance use type: does not use and painkillers what type of physical activity do you participate in: aerobics and weight training frequency: 5-6 times per week do you feel safe at home: Yes ROS ROS Narrative Constitutional: Reports fever, chills, fatigue, anorexia. Denies change in weight Eyes: Denies blurry vision, change in eye color, change in vision, discharge from eye(s), double vision, erythema, eye pain, loss of vision or other HEENT: Denies abnormal hearing, dysphagia, ear pain, epistaxis, headache(s), hearing loss, nasal congestion, nasal discharge, post nasal drip, sinus pressure, sore throat or other Cardiovascular: Denies chest pain or palpitations. Respiratory/Chest: Reports cough and shortness of breath. Reports wheezes. Gastrointestinal: Denies abdominal pain, coffee ground emesis, constipation, diarrhea, dyspepsia, hematemesis, hematochezia, loose stools, melena, nausea, vomiting or other Genitourinary: Denies burning urination, difficulty urinating, dysuria, hematuria, nocturia, urinary frequency, urinary hesitancy, urinary incontinence, urinary urgency or other Musculoskeletal: Reports myalgia. Denies arthralgias, back pain, joint pain, joint stiffness, joint swelling, neck pain or other Neurologic: Denies abnormal gait, abnormal speech, confusion, disequilibrium, dizziness, focal weakness, headache(s), numbness, paresthesias, seizure-like activity, seizures, syncope, tingling, tremor(s) or other Psychiatric: Denies homicidal ideation, suicidal ideation or other Endocrinology: Denies change in body appearance, cold intolerance, excessive sweating, heat intolerance, polydipsia, polyuria or other Hematologic/Lymphatic: Denies anemia, easy bleeding, easy bruising, lymphadenopathy or other Integumentary: Denies rashes Allergic/Immunologic: Denies rhinitis, hives, eczema, asthma or other Vital Signs Vital Signs Vital Signs: 07/09/21 02:45 07/09/21 02:53 07/09/21 03:45 Temperature 103 F H 100.9 F H Temperature Source Oral Oral Pulse Rate 99 85 Respiratory Rate 22 H 20 H Respiratory Effort Normal Non-Labored Respiratory Depth Normal Respiratory Pattern Normal Blood Pressure 108/78 112/72 Blood Pressure Mean 88 85 Pulse Ox 97 92 Oxygen Delivery Method Room Air Room Air Room Air Oxygen Flow Rate (L/min) 07/09/21 04:45 Temperature 99.5 F H Temperature Source Oral Pulse Rate 84 Respiratory Rate 20 H Respiratory Effort Respiratory Depth Respiratory Pattern Blood Pressure 104/74 Blood Pressure Mean 84 Pulse Ox 94 Oxygen Delivery Method Nasal Cannula Oxygen Flow Rate (L/min) 2 Weight Weight: 121 kg Body Mass Index (BMI) 38.2 Physical Exam Narrative Physical exam: General: Well-nourished, well-developed. Head: Normocephalic, atraumatic, no tenderness Eyes: PERRLA, EOMI ENT, no trauma, moist mucous membranes, no rhinorrhea Neck: Nontender, full range of motion, no spinal tenderness, deformities, step- off CVS: Diminished lung. S1-S2 present. No murmur, gallop or rub. Respiratory : clear to auscultation bilaterally, chest wall nontender, no wheezing Abdomen: Soft, nontender, nondistended, normal bowel sounds, no masses : Deferred Back: Nontender, no CVA tenderness, no midline spinal tenderness, deformities, step-offs Extremities: Nontender full range of motion, no trauma Skin: Normal color, no trauma, abrasions Neuro: Alert, oriented, cranial nerves II through XII grossly intact. Psychiatry: Normal mood. Normal affect. Not depressed. Not anxious. Results Lab / Micro Data Result Diagrams: 07/09/21 02:56 07/09/21 02:56 Labs: Laboratory Results - last 24 hr 07/09/21 02:56: WBC 4.1 L, RBC 4.93, Hgb 14.2, Hct 43.7, MCV 88.6, MCH 28.8, MCHC 32.5, RDW Std Deviation 44.2 H, RDW Coeff of Lester 13.5, Plt Count 147 L, MPV 10.7, Immature Gran % (Auto) 0.200, Neut % (Auto) 51.4, Lymph % (Auto) 41.1 H, [place] % (Auto) 7.1, Eos % (Auto) 0.0, Baso % (Auto) 0.2, Absolute Neuts (auto) 2.1, Absolute Lymphs (auto) 1.67, Nucleated RBC % 0 07/09/21 02:56: D-Dimer Quant (PE/DVT) 1.54 H* 07/09/21 02:56: Sodium 132 L, Potassium 4.4, Chloride 98, Carbon Dioxide 26.0, Anion Gap 8, BUN 20 H, Creatinine 1.71 H, Estim Creat Clear Calc 56.33, Est GFR (MDRD) Af Amer 56 L, Est GFR (MDRD) Non-Af 46 L, BUN/Creatinine Ratio 11.7, Glucose 96, Calcium 8.5 07/09/21 02:56: Lactic Acid 1.5 Micro: Microbiology 07/09/21 05:08 Nasal Secretion SARS-CoV-2 Antigen (Rapid) - Final SARS-CoV-2 (COVID 19) Radiology Impression Chest X-Ray 07/09/21 03:08 IMPRESSION: Negative chest radiograph. Electronically Signed: Yehuda Moser MD at 4:02 EDT Tel , Service support , Chest CTA 07/09/21 04:16 IMPRESSION: No central or lobar pulmonary embolus. More peripheral pulmonary artery branches are not well opacified and not well evaluated. Covid pneumonia. Hepatic steatosis partially visible. Electronically Signed: Yehuda Moser MD at 5:26 EDT Tel , Service support , Assessment & Plan Assessment/Plan (1) Acute hypoxemic respiratory failure: (2) Pneumonia due to 2019 novel coronavirus: PLAN: Acute hypoxemic respiratory failure secondary to SARS- COV 2 Patient oxygen was 88% on room air at the emergency department. An 89% when the squad got to his home. Placed on supplemental oxygen at emergency department and will continue. Rapid Covid antigen at the emergency department was positive. Chest CTA and chest x-ray interpreted by myself showed bilateral opacities. D-dimer was elevated at 1.54. Chest CTA with no pulmonary embolism. Decadron ordered. Creatinine clearance is more than 30. We will check LFTs. If LFT is unremarkable consider remdesivir. Tylenol for fever Mucinex ordered. Tessalon Perles ordered. Trend CBC and CMP. CKD stage II Likely secondary to hypertensive nephrosclerosis. Stable. Trend CMP. Hypertension Blood pressure is not within goal Resume home blood pressure medications. Trend blood pressure and adjust blood pressure medications. Chronic pain/history of opiate abuse Resume home gabapentin and Suboxone DVT prophylaxis: Subcutaneous Lovenox ordered. Charges/Coding Visit Charges Inpatient E&M: 05560 Init Hosp L3
--- NOTE | 2021-07-09 06:36 | NURSING ---
[id number] [id number] covid pneumonia, hypoxia, weakness, dizziness
[2021-07-09 06:44] LABS: AST(SGOT) 77 U/L (15-37); Alanine Aminotransfer ALT/SGPT 68 U/L (16-61); Albumin, Serum 3.3 g/dL (3.2-5.0); Alkaline Phosphatase 51 U/L (45-117); Bilirubin, Direct 0.18 mg/dL (0.00-0.30); Globulin 3.9 g/dL (2.2-4.2); Protein, Total 7.2 g/dL (6.4-8.2)
[2021-07-09] MEDS: guaiFENesin 1,200 MG Tablet 1200 MG PO (08:08)
[2021-07-09] MEDS: Enoxaparin 30 MG/0.3 ML Syringe SC (08:08)
--- NOTE | 2021-07-09 11:34 | PCM.DC ---
Discharge Instructions Diet Discharge Diet: No restrictions Activity Discharge Activity: Return to Normal Activity Additional Activity Instructions:: Self isolate for at least 20 days since symptoms (07/08-07/28/2021) AND at least one day (24 hours) have passed since resolution of fever without the use of fever-reducing agents AND improvement of symptoms (e.g., cough, shortness of breath) When around people in the same room, wear a face mask. Individuals also in the room should wear a mask. If possible, use a different bathroom and bedroom. Perform adequate hand hygiene. Avoid sharing dishes, glasses, etc. Dressing / Incision Call your doctor if you observe: Fever of 101 or Higher and Shortness of breath Follow Up Care Please Follow Up With: Monoclonal antibody treatment. Test Results: Test results from this visit will be discussed in further detail at your follow-up appointment, if applicable. Discharge Plan Admission Admit Date/Time: 07/09/21 05:36 Primary Reason for Your Visit: COVID 19 Attending Provider: Onofre Van Primary Care Provider: Ever Martínez Discharge Orders/Prescriptions Prescriptions: Continued albuterol sulfate 90 mcg/actuation HFA aerosol inhaler 2 puff INHALATION .four times daily PRN (Reason: shortness of breath or wheezing) RF: 0 methylprednisolone [Medrol (Robson)] 4 mg tablets,dose pack See Rx Instructions PO PER PKG DIR Qty: 21 RF: 0 trazodone 50 MG tablet 50 mg PO QHS RF: 0 tizanidine 4 MG tablet 4 mg PO QHS RF: 0 fenofibrate micronized 134 MG capsule 134 mg PO DAILY RF: 0 lisinopril 40 MG tablet 40 mg PO DAILY RF: 0 buprenorphine-naloxone 1 EACH film 1 ea SL DAILY RF: 0 ergocalciferol (vitamin D2) 50,000 UNIT capsule 50,000 unit PO Q7D RF: 0 Referrals / Follow Up: Ever Martínez MD [Primary Care Provider] - Disposition Disposition (needs filled in before D/C Order can be placed): Home, Self Care
--- NOTE | 2021-07-09 11:42 | DS.PCM_ITS ---
Providers Date of Admission: 07/09/21 Primary Care Physician: Dr. Ever Martínez MD Reason For Visit: ACUTE HYPOXEMIC RESP FAILURE Diagnosis Discharge Diagnosis (1) Acute hypoxemic respiratory failure: Status: Acute Code(s): J96.01 - Acute respiratory failure with hypoxia (2) Pneumonia due to 2019 novel coronavirus: Status: Acute Code(s): U07.1 - COVID-19; J12.82 - Pneumonia due to coronavirus disease 2019 Medications at Discharge Home Medications buprenorphine-naloxone 1 ea SL DAILY 12/28/18 fenofibrate micronized 134 mg PO DAILY 12/28/18 lisinopril 40 mg PO DAILY 12/28/18 tizanidine 4 mg PO QHS 12/28/18 trazodone 50 mg PO QHS 12/28/18 ergocalciferol (vitamin D2) 50,000 unit PO Q7D 05/20/19 albuterol sulfate 90 mcg/actuation aerosol inhaler 2 puff INHALATION .four times daily PRN g 08/30/20 methylprednisolone 4 mg tablets in a dose pack See Rx Instructions PO PER PKG DIR #21 tab 01/01/21 Hospital Course Operations None Procedures None Summary of Care Provided Minutes Spent on Discharge: 28 Hospital Course: 46-year-old male presents with a 1 day history of general malaise. Patient was admitted for COVID-19 with reported hypoxia but it was not formally documented other than just in the year documentation of 89%. Patient was started dexamethasone and remdesivir. Patient was ambulated today and he was 93% on room air. Patient stated to nursing that he would not go home with oxygen when he was told that he would had to pay for oxygen he said that he would want to go home. Patient will be discharged home. Patient will have ref erral sent over for monoclonal antibody treatment to see if he would be a candidate. He would be at high risk given his hypertension and morbid obesity with a BMI of 37.9. Physical Exam Narrative Lying in bed. Flat affect. Resp normal respiratory effort, no retractions, no use of accessory muscles and clear to auscultation bilaterally Cardio regular rate, regular rhythm, S1 normal heart sound and S2 normal heart sound GI normal to inspection, nondistended, normoactive bowel sounds, soft to palpation, non-tender and non-distended Weight / BMI Weight Weight: 119.9 kg Body Mass Index (BMI) 37.9 ABG / Lab / Microbiology Data Result Diagrams: 07/09/21 02:56 07/09/21 02:56 Laboratory: Laboratory Results - last 24 hr 07/09/21 02:56: WBC 4.1 L, RBC 4.93, Hgb 14.2, Hct 43.7, MCV 88.6, MCH 28.8, MCHC 32.5, RDW Std Deviation 44.2 H, RDW Coeff of Lester 13.5, Plt Count 147 L, MPV 10.7, Immature Gran % (Auto) 0.200, Neut % (Auto) 51.4, Lymph % (Auto) 41.1 H, [place] % (Auto) 7.1, Eos % (Auto) 0.0, Baso % (Auto) 0.2, Absolute Neuts (auto) 2.1, Absolute Lymphs (auto) 1.67, Nucleated RBC % 0 07/09/21 02:56: D-Dimer Quant (PE/DVT) 1.54 H* 07/09/21 02:56: Sodium 132 L, Potassium 4.4, Chloride 98, Carbon Dioxide 26.0, Anion Gap 8, BUN 20 H, Creatinine 1.71 H, Estim Creat Clear Calc 56.33, Est GFR (MDRD) Af Amer 56 L, Est GFR (MDRD) Non-Af 46 L, BUN/Creatinine Ratio 11.7, Gluc ose 96, Calcium 8.5 07/09/21 02:56: Lactic Acid 1.5 07/09/21 02:56: Total Bilirubin 0.50, Direct Bilirubin 0.18, AST 77 H, ALT 68 H, Alkaline Phosphatase 51, Total Protein 7.2, Albumin 3.3, Globulin 3.9 Microbiology: Microbiology 07/09/21 05:08 Nasal Secretion SARS-CoV-2 Antigen (Rapid) - Final SARS-CoV-2 (COVID 19) Radiography Diagnostic Testing: Radiology Impression Chest X-Ray 07/09/21 03:08 IMPRESSION: Negative chest radiograph. Electronically Signed: Yehuda Moser MD at 4:02 EDT Tel , Service support , Chest CTA 07/09/21 04:16 IMPRESSION: No central or lobar pulmonary embolus. More peripheral pulmonary artery branches are not well opacified and not well evaluated. Covid pneumonia. Hepatic steatosis partially visible. Electronically Signed: Yehuda Moser MD at 5:26 EDT Tel , Service support , D/C Instructions Discharge Diet: No restrictions Additional Activity Instructions: Self isolate for at least 20 days since symptoms (07/08-07/28/2021) AND at least one day (24 hours) have passed since resolution of fever without the use of fever-reducing agents AND improvement of symptoms (e.g., cough, shortness of breath) When around people in the same room, wear a face mask. Individuals also in the room should wear a mask. If possible, use a different bathroom and bedroom. Perform adequate hand hygiene. Avoid sharing dishes, glasses, etc. Call your doctor if you observe: Fever of 101 or Higher and Shortness of breath Please Follow Up With: Monoclonal antibody treatment. Meaningful Use Info Meaningful Use Diagnoses (Choose all that apply): None applicable Discharge Plan Admission Admit Date/Time: 07/09/21 05:36 Primary Reason for Your Visit: COVID 19 Attending Provider: Onofre Van Primary Care Provider: Ever Martínez Discharge Orders/Prescriptions Prescriptions: Continued albuterol sulfate 90 mcg/actuation HFA aerosol inhaler 2 puff INHALATION .four times daily PRN (Reason: shortness of breath or wheezing) RF: 0 methylprednisolone [Medrol (Robson)] 4 mg tablets,dose pack See Rx Instructions PO PER PKG DIR Qty: 21 RF: 0 trazodone 50 MG tablet 50 mg PO QHS RF: 0 tizanidine 4 MG tablet 4 mg PO QHS RF: 0 fenofibrate micronized 134 MG capsule 134 mg PO DAILY RF: 0 lisinopril 40 MG tablet 40 mg PO DAILY RF: 0 buprenorphine-naloxone 1 EACH film 1 ea SL DAILY RF: 0 ergocalciferol (vitamin D2) 50,000 UNIT capsule 50,000 unit PO Q7D RF: 0 Referrals / Follow Up: Ever Martínez MD [Primary Care Provider] - Disposition Disposition (needs filled in before D/C Order can be placed): Home, Self Care Charges/Coding Visit Charges Inpatient E&M: 97587 Disch Hosp
--- NOTE | 2021-07-09 11:45 | CASEMGMT ---
ADAN GONZALEZ Face to Face with patient for initial transition planning/care coordination assessment. ADAN GONZALEZ introduced self and role at [facility]. Patient lying in bed, alert and oriented. Patient willing to participate in assessment and is able to answer all questions appropriately. Care providers, pharmacy, and demographics verified. Patient wishes to discharge home, denies need for home health at this time. Patient states he has no further needs or concerns at this time. CM to follow for discharge planning needs that may arise. PCP: Tanya Specialists: none Preferred Pharmacy: [facility] Insurance: MMO Prescription Benefit: yes Living Will/HPOA: none LNOK: Living Arrangements: Patient lives with in a split level home. Patient is independent and able to ambulate stairs. Transportation: self, , sister DME/HHC: Patient denies DME or previous HHC. Patient does not qualify for home oxgyen. Dr. Van recommending Monoclonal Antibodies and referral received. ADAN GONZALEZ faxed referral to [facility]. Disposition Plan: Patient to discharge home with family support and follow-up plans in place. Ivonne CAMILO, RN, CM
--- NOTE | 2021-07-12 13:55 | CASEMGMT ---
ADAN GONZALEZ Discharge Follow-up Phone Call: KOREY: 6 Strata: 2 Call Date: 07/12/21 Discharge Date: 07/09/21 Time of Call: 1356 Duration: 1 min Admitting Diagnosis: Covid ADAN GONZALEZ attempted to complete follow-up phone call after recent hospitalization. No answer, voice message left with return contact information.
== END 2021-07-09 13:23 | disposition home or self-care (01) ==
LOC: ED 05:29 → ICU 06:59
PROVIDERS: Admitting Provider Hospitalist; Emergency Provider Emergency Medicine; PCP Family Medicine
DX: U07.1 COVID-19 (principal); J12.82 Pneumonia due to coronavirus disease 2019; J96.01 Acute respiratory failure with hypoxia; F17.200 Nicotine dependence, unspecified, uncomplicated; E66.01 Morbid (severe) obesity due to excess calories; Z68.37 Body mass index [BMI] 37.0-37.9, adult; I12.9 Hypertensive chronic kidney disease with stage 1 through stage 4 chronic kidney disease, or unspecified chronic kidney disease; N18.2 Chronic kidney disease, stage 2 (mild); G89.29 Other chronic pain; F11.11 Opioid abuse, in remission; Z79.899 Other long term (current) drug therapy
CPT/HCPCS: 71045; 71275; 80048; 80076; 83605; 85025; 85379; 87040; 87426; 96361; 96372; 96374; 99218; 99285; J7030; J7050; Q9967; A4216; G0378; J2405

== ENCOUNTER → 2022-05-22 | Outpatient (CLI) | payer OTHER, SELFPAY ==
--- NOTE | 2022-05-22 15:05 | RAD_ITS ---
EXAM: XR LEFT ELBOW COMPLETE, 3 OR MORE VIEWS CLINICAL INDICATION: tear of left biceps muscle TECHNIQUE: Frontal, lateral and oblique views of the left elbow. This report was created using [employer] report generation technology. COMPARISON: None. FINDINGS: BONES/JOINTS: Unremarkable. There is no displacement of the anterior or posterior fat pads. No acute fracture. No subluxation. Normal alignment. Preservation of the joint space. No destructive or sclerotic lesions. SOFT TISSUES: Unremarkable. No soft tissue swelling or gas. No radiopaque foreign body. RAD/Elbow min 3 Views IMPRESSION: Negative left elbow. Electronically Signed: Fabián Hudson MD at 20:02 EDT ,
== END | disposition home or self-care (01) ==
LOC: MTRAD 15:04
PROVIDERS: PCP Family Medicine; Referring Provider Family Medicine; Visit Provider Family Medicine
DX: S46.212A Strain of muscle, fascia and tendon of other parts of biceps, left arm, initial encounter (principal); X58.XXXA Exposure to other specified factors, initial encounter
CPT/HCPCS: 73080

== ENCOUNTER → 2022-06-05 | Outpatient (CLI) | payer OTHER, SELFPAY ==
--- NOTE | 2022-06-05 06:52 | MRI_ITS ---
STUDY: MRI LEFT ELBOW REASON FOR EXAM: Anterior upper arm/elbow pain for 5-6 months. TECHNIQUE: Standardized fat and water weighted pulse sequences were obtained in all 3 orthogonal planes. COMPARISON: Radiographs 05/22/2022. FINDINGS: Normal radio-capitellum articulation. Normal radial collateral ligamentous complex. Normal common extensor tendon. Normal ulnotrochlear articulation. Normal ulnar collateral ligamentous complex. Normal common flexor tendon. The cubital tunnel is normal, with a normal ulnar nerve. Normal biceps tendon and distal insertion. Normal lacertus fibrosis. Normal brachialis musculotendinous insertion. Normal triceps tendon and teno-osseous insertion. Normal olecranon process. The visualized distal humerus, proximal radius, and ulna are normal. There is mild atrophy with mild partial fat replacement of the visualized distal biceps muscle (T1 coronal image 22). The soft tissue structures are unremarkable. MRI/Upper Ext Joint Only(Routine) IMPRESSION: Mild atrophy of the distal biceps muscle. No demonstrated distal biceps tendon tear. Electronically Signed: Ab Valadez MD at 8:33 EDT ,
== END | disposition home or self-care (01) ==
PROVIDERS: PCP Family Medicine; Visit Provider Family Medicine
DX: S46.212D Strain of muscle, fascia and tendon of other parts of biceps, left arm, subsequent encounter (principal); X58.XXXD Exposure to other specified factors, subsequent encounter
CPT/HCPCS: 73221

== ENCOUNTER 2022-06-18 10:44 | Inpatient (IN) | payer OTHER, SELFPAY ==
[2022-06-18] VITALS (13 sets, daily range): BP systolic 73–125; BP diastolic 41–80; PULSE 83–113; RESP 14–20; TEMP 36.9–37.7; O2SAT 93–97; BMI 38.2; BMI 38.4
--- NOTE | 2022-06-18 11:38 | EKG12_ITS ---
Test Reason : lower extremity Blood Pressure : / mmHG Vent. Rate : 095 BPM Atrial Rate : 095 BPM P-R Int : 142 ms QRS Dur : 090 ms QT Int : 312 ms P-R-T Axes : 015 048 036 degrees QTc Int : 392 ms Normal sinus rhythm Normal ECG Confirmed by CHARLY GARCIA, DEVIN ([id number]), commercial production editor ADRI IGLESIAS ([id number]) on 06/20/2022 8:05:19 AM Referred By: Nel Confirmed By:DEVIN PARKS MD
--- NOTE | 2022-06-18 11:39 | VDLE_ITS ---
Reason For Study: Pain Procedure LEFT This is a venous duplex using B-mode, color GSV is normal. flow and spectral Doppler. CFV is compressible, spontaneous, phasic, Exam performed portable in ED. competent, and demonstrates normal A preliminary report was called and/or faxed augmentation. to Dr. Neumann. FV is compressible, spontaneous, phasic, competent and demonstrates normal augmentation. POP V is compressible, spontaneous, phasic, competent and demonstrates normal augmentation. T/P Trunk is compressible. PTV is compressible. LT PerV is compressible. Lymph nodes noted in the left groin with arterial flow. VL/Venous Duplex US, Unilateral Interpretation Summary Deep veins of the left lower extremity are patent and compressible segmentally. There is no evidence of left lower extremity deep vein thrombosis. The left great saphenous vein navjot ears patent and compressible segmentally. Prominent left inguinal lymph node Ordering Physician: Kelli Neumann Referring Physician: Garret Martínez MD Performed By: Ivonne Latham RVT
--- NOTE | 2022-06-18 11:41 | EDS_ITS ---
HPI History of Present Illness Chief Complaint: Lower Extremity Injury Detail of Chief Complaint: Fever, left leg redness Informant: patient and spouse/S.O. Onset/Context/Timing Onset: Days (3 days) Context: Gradual Onset Narrative Narrative: Patient presents with illness for the past 3 days. Patient states on Friday he began not feeling well with subjective fever and chills. Has been laying in his chair since that time. He had a doctor's appointment today so he went to take a shower and noticed his left leg was red in color. He is complaining of pain to his left leg as well as his right shoulder. He denies anterior chest pain. No significant cough. [facility] Medical History Bulging lumbar disc Facet arthritis of lumbar region H/O: substance abuse Hx of gastroesophageal reflux (GERD) Hypertension Rupture of left distal biceps tendon Home Medications buprenorphine 2 mg-naloxone 0.5 mg sublingual film 1 ea sublingual DAILY addiction 12/28/18 [History Last Taken Unknown] fenofibrate micronized 134 mg capsule 134 mg PO DAILY cholesterol 12/28/18 [History Last Taken 06/02/19] lisinopril 40 mg tablet 40 mg PO DAILY blood pressure 12/28/18 [History Last Taken 06/02/19] tizanidine 4 mg tablet 4 mg PO QHS sleep 12/28/18 [History Last Taken Unknown] trazodone 50 mg tablet 50 mg PO QHS sleep 12/28/18 [History Last Taken Unknown] ergocalciferol (vitamin D2) 1,250 mcg (50,000 unit) capsule 50,000 unit PO Q7D SUPPLEMENT 05/20/19 [History Last Taken 05/29/19] albuterol sulfate 90 mcg/actuation aerosol inhaler 2 puff inhalation .four times daily PRN shortness of breath or wheezing 08/30/20 [History Last Taken Unknown] gabapentin 300 mg capsule 300 mg PO TID PRN nerve pain 06/06/22 [History Last Taken Unknown] Allergy/AdvReac Type Severity Reaction Status Date / Time No Known Allergies Allergy Verified 06/18/22 10:55 Family History Mother Lung cancer Brain tumor Grandmother Rheumatoid arthritis Grandfather Rheumatoid arthritis Other CVA (cerebral vascular accident) Cancer Hypertension Surgical History H/O right wrist surgery H/O rotator cuff surgery History of hip replacement History of lumbar fusion Total knee replacement status Social History (Updated 06/18/22 @ 14:39 by Jodi Hamm) household members: spouse and children housing: house current occupational status: employed Smoking Status: Former smoker Tobacco: How many years used: 20 alcohol intake: never substance use type: does not use and painkillers what type of physical activity do you participate in: aerobics and weight training frequency: 5-6 times per week do you feel safe at home: Yes ROS ROS ED Constitutional Constitutional ED: Reports chills, fever(s) and subjective Eyes Eyes: Denies change in vision or discharge from eye(s) ENT ENT ED: Denies discharge from eye(s), rhinorrhea or sore throat Cardiovascular Cardiovascular: Denies chest pain or palpitations Respiratory/Chest Respiratory/Chest: Denies cough or dyspnea Gastrointestinal Gastrointestinal: Denies abdominal pain, diarrhea, nausea or vomiting Genitourinary Genitourinary ED: Denies difficulty urinating or dysuria Musculoskeletal Musculoskeletal: Reports extremity pain and myalgias; Denies back pain Integumentary Reports rash; Denies Abrasions Neurologic Neurologic: Reports weakness; Denies headache(s) Psychiatric Psychiatric: Denies anxiety or depression Allergic/Immunologic Allergic/Immunologic ED: Denies lip swelling or urticaria EXAM Physical Exam Const Vital Signs: 06/18/22 10:45 06/18/22 10:45 06/18/22 11:07 Temperature 99.8 F H 99.3 F H Temperature Source Temporal Oral Pulse Rate 110 H 96 Respiratory Rate 16 20 H Blood Pressure 73/41 L 79/52 L Blood Pressure Mean 51 61 Pulse Ox 93 95 Oxygen Delivery Method Room Air Nasal Cannula Oxygen Flow Rate (L/min) 2 06/18/22 11:07 06/18/22 11:38 06/18/22 11:38 Temperature 99.3 F H 99.3 F H Temperature Source Oral Oral Pulse Rate 98 Respiratory Rate 18 Blood Pressure 96/55 L Blood Pressure Mean 68 Pulse Ox 95 Oxygen Delivery Method Nasal Cannula Nasal Cannula Oxygen Flow Rate (L/min) 2 2 06/18/22 12:38 06/18/22 12:07 06/18/22 13:07 Temperature 99.4 F H 99.3 F H 99.4 F H Temperature Source Oral Oral Oral Pulse Rate 96 96 Respiratory Rate 20 H 20 H Blood Pressure 98/56 L 85/52 L Blood Pressure Mean 70 63 Pulse Ox 95 94 Oxygen Delivery Method Nasal Cannula Nasal Cannula Oxygen Flow Rate (L/min) 2 2 06/18/22 13:27 Temperature 99.5 F H Temperature Source Oral Pulse Rate 90 Respiratory Rate 20 H Blood Pressure 83/49 L Blood Pressure Mean 60 Pulse Ox 97 Oxygen Delivery Method Nasal Cannula Oxygen Flow Rate (L/min) 2 Positive well nourished and well developed General Appearance ED: well developed HEENT Reports normocephalic and head/scalp atraumatic Eyes PERRL and EOMs intact bilaterally Neck supple Chest Wall inspection of chest normal and palpation of chest normal Resp normal respiratory effort and clear to auscultation bilaterally Cardio regular rhythm Rate: tachycardic GI non-tender Auscultation: hypoactive bowel sounds Palpation: soft Extremity Extremity Narrative: Left lower extremity erythematous and warm to touch. No open wounds noted. Neuro oriented x3 and no sensory deficits noted Neuro Narrative: Generalized weakness but no focal deficits noted. Sensorium / Orientation: alert Motor Exam: strength 5/5 throughout Psych mental status grossly normal MDM MDM MDM Narrative Medical decision making narrative: Oral temperature at the time my exam is 100.3. Patient is given Tylenol. Cultures are ordered along with sepsis work-up. Venous ultrasound of the left lower extremity obtained. COVID and influenza swabs ordered. Lab Data Attestation: I reviewed the patient's lab results. Labs: Laboratory Results - last 24 hr 06/18/22 06/18/22 06/18/22 11:20 11:20 11:20 WBC 15.8 H RBC 4.37 L Hgb 13.1 Hct 39.1 L MCV 89.5 MCH 30.0 MCHC 33.5 RDW Std Deviation 44.5 H RDW Coeff of Lester 13.4 Plt Count 173 MPV 10.9 Immature Gran % (Auto) 0.500 Neut % (Auto) 84.7 H Lymph % (Auto) 8.2 L [place] % (Auto) 6.5 Eos % (Auto) 0.0 Baso % (Auto) 0.1 Absolute Neuts (auto) 13.4 H Absolute Lymphs (auto) 1.30 Nucleated RBC % 0 PT 14.3 INR 1.1 APTT 34.0 Sodium 135 L Potassium 4.2 Chloride 101 Carbon Dioxide 26.0 Anion Gap 8 BUN 31 H Creatinine 3.29 H Estim Creat Clear Calc 28.97 Est GFR (MDRD) Af Amer 26 L Est GFR (MDRD) Non-Af 22 L BUN/Creatinine Ratio 9.4 L Glucose 120 H Lactic Acid Calcium 9.2 Total Bilirubin 0.60 AST 38 H ALT 42 Alkaline Phosphatase 52 Total Protein 6.9 Albumin 3.3 Globulin 3.6 Albumin/Globulin Ratio 0.9 06/18/22 11:20 WBC RBC Hgb Hct MCV MCH MCHC RDW Std Deviation RDW Coeff of Lester Plt Count MPV Immature Gran % (Auto) Neut % (Auto) Lymph % (Auto) [place] % (Auto) Eos % (Auto) Baso % (Auto) Absolute Neuts (auto) Absolute Lymphs (auto) Nucleated RBC % PT INR APTT Sodium Potassium Chloride Carbon Dioxide Anion Gap BUN Creatinine Estim Creat Clear Calc Est GFR (MDRD) Af Amer Est GFR (MDRD) Non-Af BUN/Creatinine Ratio Glucose Lactic Acid 1.4 Calcium Total Bilirubin AST ALT Alkaline Phosphatase Total Protein Albumin Globulin Albumin/Globulin Ratio Radiography Chest X-Ray - ED: 1 View, Read by ED Physician and Chronic Changes Diagnostic Testing: Clinical Impression(s) from Imaging Studies Chest X-Ray 06/18/22 12:02 IMPRESSION: No acute abnormality is seen. Electronically Signed: Calvin Douglas MD at 12:11 EDT , EKG Initial EKG: Attestation: I personally reviewed and interpreted this EKG as follows: Interpretation: Sinus Rhythm (Sinus at 95 with no acute ischemia.) Treatment and Re-Evaluation Narrative: CBC significant for white count of 15.8 with left shift. Chemistry studies reveal acute renal injury with a BUN of 31 and creatinine of 3.29. Lactic acid is 1.4. COVID and influenza swabs are negative. Venous ultrasound of the lower extremity reveals no evidence of DVT. At this time patient has been ordered Ancef and vancomycin for cellulitis. IV fluids have been initiated for treatment of renal injury. Patient be discussed with hospitalist for admission. Discharge Plan Dx/Rx/DC Orders Clinical Impression: Cellulitis, Acute renal failure, Hypotension Disposition Disposition: Acute Care Hospital [facility] [place] Discharge Date/Time: 06/18/22 14:01
[2022-06-18] MEDS: 0.9% Normal Saline 1,000 ML 999 ML IV ×3 (11:52→15:29)
[2022-06-18] MEDS: Acetaminophen 500 MG Tablet 1000 MG PO (11:52)
[2022-06-18 11:54] LABS: Absolute Neutrophil Count 13.4 X10^3/uL (2.0-7.7); Basophil# 0.02 X10^3/uL; Basophil% 0.1 % (0-1); Hematocrit 39.1 % (40-54); Hemoglobin 13.1 g/dL (13.0-16.5); Lymphocyte % 8.2 % (19-41); Mean Corp Hgb Conc 33.5 g/dL (32-36); Mean Corpuscular Volume 89.5 fL (80-94); Mean Platelet Vol. 10.9 fl (6.2-12.0); Monocyte# 1.03 X10^3/uL; Monocyte% 6.5 % (0-10); NRBC Flagged by Analyzer 0 % (0-5); Neutrophil # 13.38 X10^3/uL (2.7-7.7); Neutrophil % 84.7 % (47-70); Platelet Count 173 K/mm3 (150-450); RBC Distribution Width CV 13.4 % (11.6-14.6); RBC Distribution Width SD 44.5 fl (35.1-43.9); Red Blood Count 4.37 M/mm3 (4.6-6.2); White Blood Count 15.8 K/mm3 (4.4-11.0)
--- NOTE | 2022-06-18 12:02 | RAD_ITS ---
STUDY: X-RAY CHEST REASON FOR EXAM: Male, 47 years old. Fever and bodyaches. TECHNIQUE: Single AP portable view of the chest. COMPARISON: Comparison is made with prior chest radiograph dated 07/09/2021. FINDINGS: EKG atelectasis are seen. Stable elevation of the right hemidiaphragm. The lungs are clear. There is no demonstrated pleural abnormality. Normal size heart. Normal mediastinum and darrell. Normal visualized pulmonary arteries. Normal visualized aortic arch and descending thoracic aorta. Normal visualized thoracic spine. Normal visualized ribs, clavicles, and shoulders. There is no demonstrated abnormality of the visualized soft tissue structures of the upper abdomen. RAD/Chest 1 View (Portable) IMPRESSION: No acute abnormality is seen. Electronically Signed: Calvin Douglas MD at 12:11 EDT ,
[2022-06-18 12:04] LABS: International Normalized Ratio 1.1; Prothrombin Time (Protime)PT. 14.3 SECONDS (11.7-14.9)
[2022-06-18 12:11] LABS: ALB/GLOB Ratio 0.9 RATIO (0.9-2.4); AST(SGOT) 38 U/L (15-37); Alanine Aminotransfer ALT/SGPT 42 U/L (16-61); Albumin, Serum 3.3 g/dL (3.2-5.0); Alkaline Phosphatase 52 U/L (45-117); Anion Gap 8 (5-15); BUN 31 mg/dL (7-18); BUN/Creat Ratio 9.4 RATIO (10-20); Calcium,Total 9.2 mg/dL (8.5-10.1); Chloride 101 mmol/L (98-107); Creatinine, Serum 3.29 mg/dL (0.70-1.30); EST Glomerular Filtration Rate 22 mL/min (>60); Est Glom Filt Rate - Afr Amer 26 mL/min (>60); Estimated Creatinine Clearance 28.97 ml/min; Globulin 3.6 g/dL (2.2-4.2); Glucose 120 mg/dL (74-106); Potassium 4.2 mmol/L (3.5-5.1); Protein, Total 6.9 g/dL (6.4-8.2); Sodium Level 135 mmol/L (136-145)
[2022-06-18 12:33] LABS: Lactic Acid 1.4 mmol/L (0.4-1.9)
[2022-06-18] MEDS: Cefazolin 2 GM in 0.9% Normal Saline 100 ML IV (13:56)
[2022-06-18] MEDS: 0.9% Normal Saline 1,000 ML 150 ML IV ×2 (15:00→17:06)
--- NOTE | 2022-06-18 15:26 | HP.PCM.HOS_ITS ---
HPI - General General Date of Admission: 06/18/22 Date of Service: 06/18/22 Chief Complaint: Generalized weakness, redness of the left lower extremity, pain in the left lower extremity HPI Latrell LANDERS, is a 47 M who presents to the emergency room at [facility] with a 3-day history of feeling unwell and feverish, he noted left lower extremity redness and swelling today.. Patient also has complaints of generalized pain in his right shoulder, he denies any right shoulder injury but he does have a history of rheumatoid arthritis. Work-up in the emergency room revealed the patient to have an elevated white blood cell count at 15.8, patient's chemistry profile was remarkable for a creatinine of 3.29, BUN of 31, AST was slightly elevated at 38, patient's temperature was 99.8, his blood pressure was low on admission to the ER at 73/41, he was given IV fluids with some increase of his blood pressure to 98/55. Blood pressure at the time of my admission was 98/60. Patient had a venous ultrasound done of the left lower extremity-Per the emergency room physician, there was no evidence of VTE. Patient's COVID and influenza swabs were negative. Patient will be admitted for acute cellulitis of the left lower leg and acute kidney injury, he will be given IV fluids, patient was given IV Ancef and vancomycin in the emergency room, I have decided to maintain the patient on IV Rocephin starting tonight at 6 PM and hold any further doses of vancomycin until the patient is reevaluated tomorrow and he has repeat labs. [facility] Medical History Bulging lumbar disc Facet arthritis of lumbar region H/O: substance abuse Hx of gastroesophageal reflux (GERD) Hypertension Rupture of left distal biceps tendon Home Medications buprenorphine 2 mg-naloxone 0.5 mg sublingual film 1 ea sublingual DAILY addiction 12/28/18 [History Last Taken Unknown] fenofibrate micronized 134 mg capsule 134 mg PO DAILY cholesterol 12/28/18 [History Last Taken 06/02/19] lisinopril 40 mg tablet 40 mg PO DAILY blood pressure 12/28/18 [History Last Taken 06/02/19] tizanidine 4 mg tablet 4 mg PO QHS sleep 12/28/18 [History Last Taken Unknown] trazodone 50 mg tablet 50 mg PO QHS sleep 12/28/18 [History Last Taken Unknown] ergocalciferol (vitamin D2) 1,250 mcg (50,000 unit) capsule 50,000 unit PO Q7D SUPPLEMENT 05/20/19 [History Last Taken 05/29/19] albuterol sulfate 90 mcg/actuation aerosol inhaler 2 puff inhalation .four times daily PRN shortness of breath or wheezing 08/30/20 [History Last Taken Unknown] gabapentin 300 mg capsule 300 mg PO TID PRN nerve pain 06/06/22 [History Last Taken Unknown] Allergy/AdvReac Type Severity Reaction Status Date / Time No Known Allergies Allergy Verified 06/18/22 10:55 Family History Mother Lung cancer Brain tumor Grandmother Rheumatoid arthritis Grandfather Rheumatoid arthritis Other CVA (cerebral vascular accident) Cancer Hypertension Surgical History H/O right wrist surgery H/O rotator cuff surgery History of hip replacement History of lumbar fusion Total knee replacement status Social History (Updated 06/18/22 @ 14:39 by Jodi Hamm) household members: spouse and children housing: house current occupational status: employed Smoking Status: Former smoker Tobacco: How many years used: 20 alcohol intake: never substance use type: does not use and painkillers what type of physical activity do you participate in: aerobics and weight training frequency: 5-6 times per week do you feel safe at home: Yes ROS Constitutional Constitutional: Reports chills, fatigue, fever(s), malaise and weakness; Denies anorexia, change in weight or night sweats Eyes Eyes: Denies blurry vision, change in eye color, change in vision, discharge from eye(s) or eye pain ENT HEENT: Denies abnormal hearing, dysphagia, ear pain or epistaxis Cardiovascular Cardiovascular: Denies chest pain, claudication, dyspnea on exertion, edema, lightheadedness, orthopnea or palpitations Respiratory/Chest Respiratory/Chest: Denies cough, dyspnea, excessive phlegm production, hemoptysis, productive cough, shortness of breath at rest or shortness of breath with exertion Gastrointestinal Gastrointestinal: Denies abdominal pain, coffee ground emesis, constipation, diarrhea, dyspepsia, hematemesis, hematochezia, melena, nausea or vomiting Genitourinary Genitourinary: Denies difficulty urinating, dysuria, hematuria, nocturia, urinary frequency, urinary hesitancy, urinary incontinence or urinary urgency Musculoskeletal Musculoskeletal: Reports other Details: Patient complains of pain over his left lower leg along with redness and swelling ; Denies back pain, joint pain, joint stiffness, joint swelling, myalgias or neck pain Neurologic Neurologic: Denies abnormal gait, abnormal speech, confusion, disequilibrium, dizziness, focal weakness, headache(s), loss of vision, numbness, other visual disturbances, paresthesias, syncope or tingling Psychiatric Psychiatric: Denies anxiety, cognitive impairment, depression, homicidal ideation, irritability, mood swings or suicidal ideation Endocrine Endocrinology: Denies change in body appearance, cold intolerance, excessive sweating, heat intolerance, polydipsia or polyuria Hematologic/Lymphatic Hematologic/Lymphatic: Denies none, anemia, easy bleeding, easy bruising or lymphadenopathy Allergic/Immunologic Allergic/Immunologic: Denies rhinitis, hives, urticaria, eczemia or asthma Vital Signs Vital Signs Vital Signs: 06/18/22 10:45 06/18/22 10:45 06/18/22 11:07 Temperature 99.8 F H 99.3 F H Temperature Source Temporal Oral Pulse Rate 110 H 96 Respiratory Rate 16 20 H Blood Pressure 73/41 L 79/52 L Blood Pressure [BP] Blood Pressure Mean 51 61 Blood Pressure Mean [BP] Blood Pressure Source [BP] Blood Pressure Position [BP] Blood Pressure Location [BP] Pulse Ox 93 95 Oxygen Delivery Method Room Air Nasal Cannula Oxygen Flow Rate (L/min) 2 06/18/22 11:07 06/18/22 11:38 06/18/22 11:38 Temperature 99.3 F H 99.3 F H Temperature Source Oral Oral Pulse Rate 98 Respiratory Rate 18 Blood Pressure 96/55 L Blood Pressure [BP] Blood Pressure Mean 68 Blood Pressure Mean [BP] Blood Pressure Source [BP] Blood Pressure Position [BP] Blood Pressure Location [BP] Pulse Ox 95 Oxygen Delivery Method Nasal Cannula Nasal Cannula Oxygen Flow Rate (L/min) 2 2 06/18/22 12:38 06/18/22 12:07 06/18/22 13:07 Temperature 99.4 F H 99.3 F H 99.4 F H Temperature Source Oral Oral Oral Pulse Rate 96 96 Respiratory Rate 20 H 20 H Blood Pressure 98/56 L 85/52 L Blood Pressure [BP] Blood Pressure Mean 70 63 Blood Pressure Mean [BP] Blood Pressure Source [BP] Blood Pressure Position [BP] Blood Pressure Location [BP] Pulse Ox 95 94 Oxygen Delivery Method Nasal Cannula Nasal Cannula Oxygen Flow Rate (L/min) 2 2 06/18/22 13:27 06/18/22 14:00 06/18/22 14:18 Temperature 99.5 F H 99.5 F H 99.0 F Temperature Source Oral Oral Oral Pulse Rate 90 83 Respiratory Rate 20 H 14 Blood Pressure 83/49 L Blood Pressure [BP] 98/60 Blood Pressure Mean 60 Blood Pressure Mean [BP] 72 Blood Pressure Source [BP] Monitor Blood Pressure Position [BP] Semi-Fowlers Blood Pressure Location [BP] Right Arm Pulse Ox 97 97 Oxygen Delivery Method Nasal Cannula Room Air Oxygen Flow Rate (L/min) 2 06/18/22 14:30 Temperature Temperature Source Pulse Rate 86 Respiratory Rate Blood Pressure Blood Pressure [BP] Blood Pressure Mean Blood Pressure Mean [BP] Blood Pressure Source [BP] Blood Pressure Position [BP] Blood Pressure Location [BP] Pulse Ox Oxygen Delivery Method Oxygen Flow Rate (L/min) Weight Weight: 121.5 kg Body Mass Index (BMI) 38.4 Physical Exam Const alert, oriented x3, no apparent distress, average body habitus and healthy appearing General Appearance: cooperative, well kempt and well developed Orientation / Consciousness: awake, oriented to person, oriented to place and oriented to time HEENT normocephalic, head/scalp atraumatic, hearing grossly normal bilaterally and moist oral mucous membranes Eyes PERRL, EOMs intact bilaterally and conjunctivae normal Neck supple, no JVD and thyroid normal General: trachea midline Resp normal respiratory effort, no retractions, no use of accessory muscles and clear to auscultation bilaterally Auscultation: Negative for rales, rhonchi or wheezes Cardio regular rate, regular rhythm, S1 normal heart sound, S2 normal heart sound, no murmurs, no rub and no gallops GI normal to inspection, nondistended, normoactive bowel sounds, soft to palpation, non-tender and non-distended Extremity Extremity Narrative: There is noted to be generalized swelling and redness of the left lower leg, there is some redness and induration extending up into the inner aspect of the left upper leg, there is also noted to be eczematous appearing areas on the dorsum of the patient's feet bilaterally. Skin Skin Narrative: There is noted to be areas of dry skin over the dorsum of the patient's feet bilaterally near the metatarsal phalangeal joint Neuro oriented x3, CN's II-XII intact bilaterally, moves all extremities, no focal motor deficits and no sensory deficits noted Sensorium / Orientation: awake, alert, oriented to person, oriented to place and oriented to time Speech: speech normal Psych affect normal Results Lab / Micro Data Result Diagrams: 06/18/22 11:20 06/18/22 11:20 Labs: Laboratory Results - last 24 hr 06/18/22 11:20: WBC 15.8 H, RBC 4.37 L, Hgb 13.1, Hct 39.1 L, MCV 89.5, MCH 30.0, MCHC 33.5, RDW Std Deviation 44.5 H, RDW Coeff of Lester 13.4, Plt Count 173, MPV 10.9, Immature Gran % (Auto) 0.500, Neut % (Auto) 84.7 H, Lymph % (Auto) 8.2 L, Braxton % (Auto) 6.5, Eos % (Auto) 0.0, Baso % (Auto) 0.1, Absolute Neuts (auto) 13.4 H, Absolute Lymphs (auto) 1.30, Nucleated RBC % 0 06/18/22 11:20: PT 14.3, INR 1.1, APTT 34.0 06/18/22 11:20: Sodium 135 L, Potassium 4.2, Chloride 101, Carbon Dioxide 26.0, Anion Gap 8, BUN 31 H, Creatinine 3.29 H, Estim Creat Clear Calc 28.97, Est GFR (MDRD) Af Amer 26 L, Est GFR (MDRD) Non-Af 22 L, BUN/Creatinine Ratio 9.4 L, Glucose 120 H, Calcium 9.2, Total Bilirubin 0.60, AST 38 H, ALT 42, Alkaline Phosphatase 52, Total Protein 6.9, Albumin 3.3, Globulin 3.6, Albumin/Globulin Ratio 0.9 06/18/22 11:20: Lactic Acid 1.4 Micro: Microbiology 06/18/22 11:55 Nasal Secretion SARS-CoV-2 & FLU Antigen (Rapid) - Final Radiology Impression Chest X-Ray 06/18/22 12:02 IMPRESSION: No acute abnormality is seen. Electronically Signed: Calvin Douglas MD at 12:11 EDT , Assessment & Plan Assessment/Plan (1) Cellulitis: PLAN: Plan 1. Cellulitis of the left lower leg-again patient will be admitted to PCU, he will be started on IV Rocephin tonight, he was given IV Ancef and IV vancomycin (loading dose) in the emergency room. I have chosen not to continue the vancomycin due to the patient's renal function, he will need reevaluated for addition of any vancomycin tomorrow. #2 acute kidney injury-there are no recent renal functions in the patient's chart at this time, his last creatinine drawn at the hospital here was in S mb2020-it was 1.71 at that time. Patient will be given IV fluids and his labs will be rechecked tomorrow. I do not think the patient needs a renal ultrasound at this time. #3 right shoulder pain-possibly secondary to history of rheumatoid arthritis- patient cannot be given a nonsteroidal at this time, he will have to take acetaminophen-patient is currently on Subutex due to a history of opiate abuse, he cannot be given opiates for his right shoulder pain. #4 essential hypertension-patient's lisinopril will be held due to his low blood pressure #5 hypotension-probably secondary to dehydration, IV fluids will be administered, patient had 3 L of saline ordered in the emergency room-this will be finished on the floor #6 chronic back pain-patient is on gabapentin #7 hyperlipidemia-patient is on fenofibrate #8 past history of opiate abuse-patient is on Subutex, this will be continued here Charges/Coding Visit Charges Inpatient E&M: 59950 Init Hosp L3
[2022-06-18 16:51] LABS: Mucous, Urine 0 SEEN /hpf (<or=2+)
[2022-06-18 16:59] LABS: Color, Urine Yellow (Yellow); Glucose, Dipstick 1000 mg/dl (Normal); Ketone-Dipstick Negative (Negative); Leukocyte Esterase-Dipstick Negative /ul (Negative); Nitrite-Dipstick Negative (Negative); Occult Blood-Urine 10 /ul (Negative); Protein-Dipstick 30 mg/dl (Negative); Specific Gravity, Urine 1.015 (1.002-1.030); Urine Bilirubin Dipstick Negative (Negative); Urine Clarity Clear (Clear); Urine Urobilinogen Normal (Normal)
[2022-06-18 17:09] LABS: Bacteria 1+ /hpf (None Seen); Red Blood Cells-Urine 0-5 SEEN /hpf (0-5); Squamous Epithelial Cells - UA 0-5 SEEN /hpf (0-5); White Blood Cells 0-5 SEEN /hpf (0-5)
[2022-06-18] MEDS: Acetaminophen 325 MG Tablet 650 MG PO (18:03)
[2022-06-18] MEDS: Gabapentin 300 MG Capsule PO (18:03)
[2022-06-18] MEDS: hydrOXYzine PAM 25 MG Capsule 50 MG PO (18:33)
--- NOTE | 2022-06-18 19:41 | NURSING ---
updated on poc
[2022-06-18] MEDS: DiphenhydrAMINE 25 MG Capsule PO (20:31)
[2022-06-18] MEDS: tiZANidine HCl 2 MG Tablet 4 MG PO (20:31)
[2022-06-18] MEDS: traZODone 50 MG Tablet PO (20:31)
--- NOTE | 2022-06-18 21:15 | NURSING ---
Pt states took 1 subtex strip today. Pt states, will bring medication in the morning. Alternative offered, pt declines at this time.
[2022-06-19] VITALS (8 sets, daily range): BP systolic 113–158; BP diastolic 59–100; PULSE 93–107; RESP 18–20; TEMP 36.3–37.6; O2SAT 93–97
[2022-06-19] MEDS: 0.9% Normal Saline 1,000 ML 150 ML IV ×3 (01:21→15:46)
[2022-06-19] MEDS: hydrOXYzine PAM 25 MG Capsule 50 MG PO ×2 (05:44→20:51)
[2022-06-19] MEDS: Acetaminophen 325 MG Tablet 650 MG PO ×2 (05:44→19:44)
[2022-06-19] MEDS: Fenofibrate 145 MG Tablet PO (08:17)
--- NOTE | 2022-06-19 10:09 | PCM.PN.HOSP ---
Subjective Subjective Doing well, still has some left lower extremity pain. It is more swollen and more red than his right leg Objective Data Objective Data Vital Signs: Vital Signs Temp Pulse Resp BP Pulse Ox O2 Del Method O2 Flow Rate 99.6 F H 107 H 18 116/62 93 Room Air 2 06/19/22 09:00 06/19/22 09:00 06/19/22 09:00 06/19/22 09:00 06/19/22 09:00 06/19/22 09:27 06/18/22 13:27 Oxygen Flow Rate (L/min) 2 Oxygen Delivery Method Room Air Weight: 267 lb 13.786 oz Body Mass Index (BMI) 38.4 Intake & Output: Intake and Output for Last 24 Hours 06/18/22 06/19/22 06/20/22 03:59 03:59 03:59 Intake Total 5767.5 / 5767.5 1150 / 1150 Output Total 800 / 800 1250 / 1250 Balance 4967.5 / 4967.5 -100 / -100 Lab / Micro Data Result Diagrams: 06/18/22 11:20 06/18/22 11:20 Labs: Laboratory Results - last 24 hr 06/18/22 11:20: WBC 15.8 H, RBC 4.37 L, Hgb 13.1, Hct 39.1 L, MCV 89.5, MCH 30.0, MCHC 33.5, RDW Std Deviation 44.5 H, RDW Coeff of Lester 13.4, Plt Count 173, MPV 10.9, Immature Gran % (Auto) 0.500, Neut % (Auto) 84.7 H, Lymph % (Auto) 8.2 L, Meagher % (Auto) 6.5, Eos % (Auto) 0.0, Baso % (Auto) 0.1, Absolute Neuts (auto) 13.4 H, Absolute Lymphs (auto) 1.30, Nucleated RBC % 0 06/18/22 11:20: PT 14.3, INR 1.1, APTT 34.0 06/18/22 11:20: Sodium 135 L, Potassium 4.2, Chloride 101, Carbon Dioxide 26.0, Anion Gap 8, BUN 31 H, Creatinine 3.29 H, Estim Creat Clear Calc 28.97, Est GFR (MDRD) Af Amer 26 L, Est GFR (MDRD) Non-Af 22 L, BUN/Creatinine Ratio 9.4 L, Glucose 120 H, Calcium 9.2, Total Bilirubin 0.60, AST 38 H, ALT 42, Alkaline Phosphatase 52, Total Protein 6.9, Albumin 3.3, Globulin 3.6, Albumin/Globulin Ratio 0.9 06/18/22 11:20: Lactic Acid 1.4 06/18/22 16:37: Urine Color Yellow, Urine Clarity Clear, Urine pH 6.0, Ur Specific [place] 1.015, Urine Protein 30 H, Urine Glucose (UA) 1000 H, Urine Ketones Negative, Urine Occult Blood 10 H, Urine Nitrite Negative, Urine Bilirubin Negative, Urine Urobilinogen Normal, Ur Leukocyte Esterase Negative, Urine RBC 0-5 SEEN, Urine WBC 0-5 SEEN, Ur Squamous Epith Cells 0-5 SEEN, Urine Bacteria 1+, Urine Mucus 0 SEEN Micro: Microbiology 06/18/22 11:55 Nasal Secretion SARS-CoV-2 & FLU Antigen (Rapid) - Final Radiography Diagnostic Testing: Radiology Impression Venous Doppler Study 06/18/22 11:39 Interpretation Summary Deep veins of the left lower extremity are patent and compressible segmentally. There is no evidence of left lower extremity deep vein thrombosis. The left great saphenous vein appears patent and compressible segmentally. Prominent left inguinal lymph node Ordering Physician: Kelli Neumann Referring Physician: Garret Martínez MD Performed By: Ivonne Latham Nnamdi Chest X-Ray 06/18/22 12:02 IMPRESSION: No acute abnormality is seen. Electronically Signed: Calvin Douglas MD at 12:11 EDT , Physical Exam Narrative General: Alert, Oriented x3, Cooperative, No apparent distress HEENT: Atraumatic, PERRLA, EOMI, Normocephalic Oral: Moist Mucosa Neck: Supple, No JVD Lungs: Clear to auscultation, Normal air movement, No rhonchi, No wheeze, No rales Cardiovascular: Regular rate, Regular Rhythm, Normal S1, Normal S2, No murmurs Abdomen: Soft, Non Tender, Non-Distended, No Hepato-splenomegaly Extremities: Left lower extremity is swollen and red no obvious abscess, Capillary Refill Less than 3 Seconds Skin: No rashes, No breakdown Musculoskeletal: No Tenderness to Palpation of Joints or Extremities Neurological: Cranial nerves II-XII grossly intact, Motor Exam 5/5 strength throughout, Sensory exam intact to light touch and pain Psych/Mental Status: Normal Affect, Appropriate Assessment & Plan Assessment/Plan (1) Cellulitis: PLAN: Plan 1. Cellulitis of the left lower leg/DEE ? Continue with IV Rocephin, he was given Ancef and vancomycin in the ER however this does not appear to be a MRSA infection at this time ? Left lower extremity Doppler was negative for DVT ? Cultures are pending ? We will recheck kidney function today as his creatinine was over 3, his last known creatinine was 1.71 back in June 2021 2. HTN/HLD ? Blood pressures are stable ? Can resume his fenofibrate but will hold his JENNIFER inhibitor secondary to his DEE 3. Chronic back pain/past history of opiate abuse ? Stable ? Can resume his gabapentin, tizanidine, trazodone and Suboxone DVT: Ambulation Charges/Coding Visit Charges Inpatient E&M: 26010 Subs Hosp L2
--- NOTE | 2022-06-19 10:15 | CASEMGMT ---
RN LISA Face to Face with patient for initial transition planning/care coordination assessment. RN CM introduced self and role at [facility]. Patient lying in bed, alert and oriented, at bedside. Patient willing to participate in assessment and is able to answer all questions appropriately. Care providers, pharmacy, and demographics verified. Patient wishes to discharge home, denies need for home health at this time. Patient states he has no further needs or concerns at this time. CM to follow for discharge planning needs that may arise. PCP: Tanya Specialists: [facility]; Yandel, spinal ortho; Phyllis, Pain Preferred Pharmacy: [facility] Insurance: MMO Prescription Benefit: yes Living Will/HPOA: none LNOK: Living Arrangements: Patient lives with in a split level home with 5-6 steps with railing between levels. Patient states he is independent at home. Transportation: self, DME/HHC: Patient states he has walker, cane, and raised toilets at home. No previous HHC or SNF. Patient denies needs at this time. states she is teachable and willing to complete wound care if there is any. Disposition Plan: Patient to discharge home with family support and follow-up plans in place. Ivonne CAMILO, RN, CM
[2022-06-19 10:35] LABS: Absolute Lymphocyte Count 2.65 X10^3/uL (0.83-4.51); Absolute Neutrophil Count 6.8 X10^3/uL (2.0-7.7); Basophil# 0.01 X10^3/uL; Basophil% 0.1 % (0-1); Eosinophil# 0.01 X10^3/uL; Eosinophils% 0.1 % (0-5); Hematocrit 36.8 % (40-54); Hemoglobin 12.3 g/dL (13.0-16.5); Lymphocyte # 2.65 X10^3/ul (0.83-4.51); Mean Corp Hgb Conc 33.4 g/dL (32-36); Mean Corpuscular Hgb 30.3 pg (27.0-32.0); Mean Corpuscular Volume 90.6 fL (80-94); Mean Platelet Vol. 10.3 fl (6.2-12.0); Monocyte# 1.07 X10^3/uL; Monocyte% 10.1 % (0-10); NRBC Flagged by Analyzer 0 % (0-5); Neutrophil # 6.82 X10^3/uL (2.7-7.7); Neutrophil % 64.5 % (47-70); Platelet Count 155 K/mm3 (150-450); RBC Distribution Width CV 13.5 % (11.6-14.6); RBC Distribution Width SD 45.6 fl (35.1-43.9); Red Blood Count 4.06 M/mm3 (4.6-6.2); White Blood Count 10.6 K/mm3 (4.4-11.0)
[2022-06-19 11:23] LABS: Anion Gap 5 (5-15); BUN 20 mg/dL (7-18); BUN/Creat Ratio 10.2 RATIO (10-20); Calcium,Total 9.1 mg/dL (8.5-10.1); Chloride 108 mmol/L (98-107); Creatinine, Serum 1.97 mg/dL (0.70-1.30); EST Glomerular Filtration Rate 39 mL/min (>60); Est Glom Filt Rate - Afr Amer 47 mL/min (>60); Estimated Creatinine Clearance 48.38 ml/min; Glucose 101 mg/dL (74-106); Potassium 4.2 mmol/L (3.5-5.1); Sodium Level 140 mmol/L (136-145)
[2022-06-19] MEDS: Buprenorphine HCl 2 MG TAB.SUBL 4 MG SL ×2 (13:42→21:00)
[2022-06-19] MEDS: DiphenhydrAMINE 25 MG Capsule PO (19:44)
[2022-06-19] MEDS: traZODone 50 MG Tablet PO (19:45)
[2022-06-19] MEDS: tiZANidine HCl 2 MG Tablet 4 MG PO (19:46)
[2022-06-19] MEDS: 0.9% Saline Lock 10 ML Syringe IV (20:51)
[2022-06-20] VITALS (10 sets, daily range): BP systolic 97–125; BP diastolic 60–80; PULSE 67–91; RESP 14–18; TEMP 36.3–37.3; O2SAT 95–98
[2022-06-20] MEDS: 0.9% Normal Saline 1,000 ML 150 ML IV ×2 (01:26→08:13)
[2022-06-20] MEDS: Buprenorphine HCl 2 MG TAB.SUBL 4 MG SL ×3 (05:33→21:06)
[2022-06-20] MEDS: hydrOXYzine PAM 25 MG Capsule 50 MG PO ×2 (05:37→21:07)
[2022-06-20] MEDS: Acetaminophen 325 MG Tablet 650 MG PO ×3 (05:38→21:08)
[2022-06-20] MEDS: Fenofibrate 145 MG Tablet PO (08:21)
--- NOTE | 2022-06-20 13:50 | PCM.PN.HOSP ---
Subjective Subjective Doing well today, still having left lower extremity pain and it still swollen. He does have difficulty walking on it. Objective Data Objective Data Vital Signs: Vital Signs Temp Pulse Resp BP Pulse Ox O2 Del Method O2 Flow Rate 97.4 F L 85 16 113/61 96 Room Air 2 06/20/22 12:00 06/20/22 12:00 06/20/22 12:00 06/20/22 12:00 06/20/22 12:00 06/20/22 12:00 06/20/22 02:48 Oxygen Flow Rate (L/min) 2 Oxygen Delivery Method Room Air Weight: 267 lb 13.786 oz Body Mass Index (BMI) 38.4 Intake & Output: Intake and Output for Last 24 Hours 06/19/22 06/20/22 06/21/22 03:59 03:59 03:59 Intake Total 5767.5 / 5767.5 4690 / 4690 2202.5 / 2202.5 Output Total 800 / 800 2350 / 2350 200 / 200 Balance 4967.5 / 4967.5 2340 / 2340 2002.5 / 2002.5 Lab / Micro Data Result Diagrams: 06/19/22 10:25 06/19/22 10:25 Micro: Microbiology 06/18/22 16:37 Urine, Clean Catch Urine Culture - Preliminary Culture exhibits no growth. 06/18/22 11:22 Blood Culture (Wb) - Left Hand Blood Culture - Preliminary No growth in 48 hours. 06/18/22 11:20 Blood Culture (Wb) - Anticubital Left Blood Culture - Preliminary No growth in 48 hours. 06/18/22 11:55 Nasal Secretion SARS-CoV-2 & FLU Antigen (Rapid) - Final Physical Exam Narrative General: Alert, Oriented x3, Cooperative, No apparent distress HEENT: Atraumatic, PERRLA, EOMI, Normocephalic Oral: Moist Mucosa Neck: Supple, No JVD Lungs: Clear to auscultation, Normal air movement, No rhonchi, No wheeze, No rales Cardiovascular: Regular rate, Regular Rhythm, Normal S1, Normal S2, No murmurs Abdomen: Soft, Non Tender, Non-Distended, No Hepato-splenomegaly Extremities: Left lower extremity is swollen and red no obvious abscess, Capillary Refill Less than 3 Seconds Skin: No rashes, No breakdown Musculoskeletal: No Tenderness to Palpation of Joints or Extremities Neurological: Cranial nerves II-XII grossly intact, Motor Exam 5/5 strength throughout, Sensory exam intact to light touch and pain Psych/Mental Status: Normal Affect, Appropriate Assessment & Plan Assessment/Plan (1) Cellulitis: PLAN: Plan 1. Cellulitis of the left lower leg/DEE ? Continue with IV Rocephin, he was given Ancef and vancomycin in the ER however this does not appear to be a MRSA infection at this time ? White count has resolved therefore we will continue 1 more day with Rocephin, if he still has swelling and redness may consider transitioning to a different antibiotic ? We will wrap his left lower extremity ? Left lower extremity Doppler was negative for DVT ? Cultures are negative ? Renal function is improved back down to baseline 2. HTN/HLD ? Blood pressures are stable ? Can resume his fenofibrate but will hold his JENNIFER inhibitor secondary to his DEE 3. Chronic back pain/past history of opiate abuse ? Stable ? Can resume his gabapentin, tizanidine, trazodone and Suboxone DVT: Ambulation Charges/Coding Visit Charges Inpatient E&M: 69338 Subs Hosp L2
[2022-06-20] MEDS: tiZANidine HCl 2 MG Tablet 4 MG PO (21:07)
[2022-06-20] MEDS: traZODone 50 MG Tablet PO (21:07)
[2022-06-20] MEDS: 0.9% Saline Lock 10 ML Syringe IV (21:09)
[2022-06-21 03:00] VITALS: PULSE 73
[2022-06-21 04:00] VITALS: BP 109/83; PULSE 65; RESP 14; TEMP 36.9; O2SAT 95
--- NOTE | 2022-06-21 05:35 | NURSING ---
all documentation completed by James ARELLANO reviewed by this RN
[2022-06-21] MEDS: Buprenorphine HCl 2 MG TAB.SUBL 4 MG SL (05:49)
[2022-06-21 06:03] LABS: Absolute Lymphocyte Count 2.35 X10^3/uL (0.83-4.51); Absolute Neutrophil Count 5.6 X10^3/uL (2.0-7.7); Basophil# 0.02 X10^3/uL; Basophil% 0.2 % (0-1); Eosinophil# 0.11 X10^3/uL; Eosinophils% 1.3 % (0-5); Hematocrit 35.1 % (40-54); Hemoglobin 11.3 g/dL (13.0-16.5); Lymphocyte # 2.35 X10^3/ul (0.83-4.51); Lymphocyte % 26.7 % (19-41); Mean Corp Hgb Conc 32.2 g/dL (32-36); Mean Corpuscular Hgb 29.4 pg (27.0-32.0); Mean Corpuscular Volume 91.4 fL (80-94); Mean Platelet Vol. 10.7 fl (6.2-12.0); NRBC Flagged by Analyzer 0 % (0-5); Neutrophil # 5.55 X10^3/uL (2.7-7.7); Neutrophil % 63.1 % (47-70); Platelet Count 191 K/mm3 (150-450); RBC Distribution Width CV 13.2 % (11.6-14.6); RBC Distribution Width SD 44.5 fl (35.1-43.9); Red Blood Count 3.84 M/mm3 (4.6-6.2); White Blood Count 8.8 K/mm3 (4.4-11.0)
[2022-06-21 06:36] LABS: Anion Gap 6 (5-15); BUN 12 mg/dL (7-18); BUN/Creat Ratio 9.2 RATIO (10-20); Calcium,Total 8.8 mg/dL (8.5-10.1); Chloride 103 mmol/L (98-107); EST Glomerular Filtration Rate 63 mL/min (>60); Est Glom Filt Rate - Afr Amer 76 mL/min (>60); Estimated Creatinine Clearance 73.31 ml/min; Glucose 115 mg/dL (74-106); Potassium 3.9 mmol/L (3.5-5.1); Sodium Level 139 mmol/L (136-145)
[2022-06-21 07:00] VITALS: PULSE 81
--- NOTE | 2022-06-21 08:22 | DCINST_ITS ---
Discharge Instructions Diet Discharge Diet: Low fat / Low cholesterol Activity Discharge Activity: Return to Normal Activity Dressing / Incision Call your doctor if you observe: Fever of 101 or Higher, Shortness of breath, Dizziness, Fainting spells, Swelling in the ankles, Chest pain and Increased palpitations (irregular heartbeat) Follow Up Care Test Results: Test results from this visit will be discussed in further detail at your follow- up appointment, if applicable. Discharge Plan Admission Admit Date/Time: 06/18/22 13:39 Attending Provider: Cristiano Pena Primary Care Provider: Ever Martínez Consulting Providers: Yassine Hernandez Discharge Orders/Prescriptions Prescriptions: New cefdinir 300 mg capsule 300 mg PO Q12H Qty: 14 0RF Continued albuterol sulfate 90 mcg/actuation HFA aerosol inhaler 2 puff INHALATION .four times daily PRN (Reason: shortness of breath or wheezing) Label Comments: inhale 2 puffs by mouth and INTO THE LUNGS four times a day if needed for cough gabapentin 300 mg capsule 300 mg PO TID PRN (Reason: nerve pain) trazodone 50 MG tablet 50 mg PO QHS tizanidine 4 MG tablet 4 mg PO QHS fenofibrate micronized 134 MG capsule 134 mg PO DAILY lisinopril 40 MG tablet 40 mg PO DAILY buprenorphine-naloxone 1 EACH film 1.5 ea sublingual TID ergocalciferol (vitamin D2) 50,000 UNIT capsule 50,000 unit PO Q7D Rx Instructions: TAKES ON FRIDAY Referrals / Follow Up: Ever Martínez MD [Primary Care Provider] - Within 1 Week Disposition Disposition (needs filled in before D/C Order can be placed): Home, Self Care
--- NOTE | 2022-06-21 08:25 | DS.PCM_ITS ---
Providers Date of Admission: 06/18/22 Primary Care Physician: Dr. Ever Martínez MD Reason For Visit: CELLULITIS RIGHT LEG Diagnosis Discharge Diagnosis (1) Cellulitis: Status: Acute Code(s): L03.90 - Cellulitis, unspecified Plan 1. Cellulitis of the left lower leg/EDE ? Continue with IV Rocephin, he was given Ancef and vancomycin in the ER however this does not appear to be a MRSA infection at this time ? White count has resolved therefore we will continue 1 more day with Rocephin, if he still has swelling and redness may consider transitioning to a different antibiotic ? We will wrap his left lower extremity ? Left lower extremity Doppler was negative for DVT ? Cultures are negative ? Renal function is improved back down to baseline 2. HTN/HLD ? Blood pressures are stable ? Can resume his fenofibrate but will hold his JENNIFER inhibitor secondary to his DEE 3. Chronic back pain/past history of opiate abuse ? Stable ? Can resume his gabapentin, tizanidine, trazodone and Suboxone DVT: Ambulation Medications at Discharge Home Medications buprenorphine 2 mg-naloxone 0.5 mg sublingual film 1.5 ea sublingual TID addiction 12/28/18 fenofibrate micronized 134 mg capsule 134 mg PO DAILY cholesterol 12/28/18 lisinopril 40 mg tablet 40 mg PO DAILY blood pressure 12/28/18 tizanidine 4 mg tablet 4 mg PO QHS sleep 12/28/18 trazodone 50 mg tablet 50 mg PO QHS sleep 12/28/18 ergocalciferol (vitamin D2) 1,250 mcg (50,000 unit) capsule 50,000 unit PO Q7D SUPPLEMENT 05/20/19 albuterol sulfate 90 mcg/actuation aerosol inhaler 2 puff inhalation .four times daily PRN shortness of breath or wheezing 08/30/20 gabapentin 300 mg capsule 300 mg PO TID PRN nerve pain 06/06/22 cefdinir 300 mg capsule 300 mg PO Q12H #14 caps 06/21/22 Hospital Course Operations None Procedures None Summary of Care Provided Minutes Spent on Discharge: 38 Hospital Course: Per HPI: YURI LANDERS, is a 47 M who presents to the emergency room at [facility] with a 3-day history of feeling unwell and feverish, he noted left lower extremity redness and swelling today..? Patient also has complaints of generalized pain in his right shoulder, he denies any right shoulder injury but he does have a history of rheumatoid arthritis. Work-up in the emergency room revealed the patient to have an elevated white blood cell count at 15.8, patient's chemistry profile was remarkable for a creatinine of 3.29, BUN of 31, AST was slightly elevated at 38, patient's tempe rature was 99.8, his blood pressure was low on admission to the ER at 73/41, he was given IV fluids with some increase of his blood pressure to 98/55.? Blood pressure at the time of my admission was 98/60.? Patient had a venous ultrasound done of the left lower extremity-Per the emergency room physician, there was no evidence of VTE.? Patient's COVID and influenza swabs were negative. Patient will be admitted for acute cellulitis of the left lower leg and acute kidney injury, he will be given IV fluids, patient was given IV Ancef and vancomycin in the emergency room, I have decided to maintain the patient on IV Rocephin starting tonight at 6 PM and hold any further doses of vancomycin until the patient is reevaluated tomorrow and he has repeat labs. Hospital Course: 1.? Cellulitis of the left lower leg/DEE ? Continue with IV Rocephin, he was given Ancef and vancomycin in the ER however this does not appear to be a MRSA infection at this time ? White count has resolved therefore we will continue 1 more day with Rocephin, if he still has swelling and redness may consider transitioning to a different antibiotic ? We will wrap his left lower extremity ? Left lower extremity Doppler was negative for DVT ? Cultures are negative ? Renal function is improved back down to baseline ? He is much improved no fevers and no white count, will continue with p.o. cefd inir for another 7 days. I discussed with him the plan for discharge today he expressed understanding of the risk benefits of going home and wants to go home today. I do recommend that he follow-up with his PCP in 3 to 5 days. 2.? HTN/HLD ? Blood pressures are stable ? Can resume his fenofibrate ? Can resume his lisinopril on discharge, DEE has completely resolved 3.? Chronic back pain/past history of opiate abuse ? Stable ? Can resume his gabapentin, tizanidine, trazodone and Suboxone Physical Exam Narrative General: Alert, Oriented x3, Cooperative, No apparent distress HEENT: Atraumatic, PERRLA, EOMI, Normocephalic Oral: Moist Mucosa Neck: Supple, No JVD Lungs: Clear to auscultation, Normal air movement, No rhonchi, No wheeze, No rales Cardiovascular: Regular rate, Regular Rhythm, Normal S1, Normal S2, No murmurs Abdomen: Soft, Non Tender, Non-Distended, No Hepato-splenomegaly Extremities: Left lower extremity is swollen and red no obvious abscess, Capillary Refill Less than 3 Seconds Skin: No rashes, No breakdown Musculoskeletal: No Tenderness to Palpation of Joints or Extremities Neurological: Cranial nerves II-XII grossly intact, Motor Exam 5/5 strength throughout, Sensory exam intact to light touch and pain Psych/Mental Status: Normal Affect, Appropriate Weight / BMI Weight Weight: 267 lb 13.786 oz Body Mass Index (BMI) 38.4 ABG / Lab / Microbiology Data Result Diagrams: 06/21/22 05:20 06/21/22 05:20 Laboratory: Laboratory Results - last 24 hr 06/21/22 05:20: WBC 8.8, RBC 3.84 L, Hgb 11.3 L, Hct 35.1 L, MCV 91.4, MCH 29.4, MCHC 32.2, RDW Std Deviation 44.5 H, RDW Coeff of Lester 13.2, Plt Count 191, MPV 10.7, Immature Gran % (Auto) 0.700, Neut % (Auto) 63.1, Lymph % (Auto) 26.7, Lares % (Auto) 8.0, Eos % (Auto) 1.3, Baso % (Auto) 0.2, Absolute Neuts (auto) 5.6, Absolute Lymphs (auto) 2.35, Nucleated RBC % 0 06/21/22 05:20: Sodium 139, Potassium 3.9, Chloride 103, Carbon Dioxide 30.0, Anion Gap 6, BUN 12, Creatinine 1.30, Estim Creat Clear Calc 73.31, Est GFR (MDRD) Af Amer 76, Est GFR (MDRD) Non-Af 63, BUN/Creatinine Ratio 9.2 L, Glucose 115 H, Calcium 8.8 Microbiology: Microbiology 06/18/22 16:37 Urine, Clean Catch Urine Culture - Preliminary Culture exhibits no growth. 06/18/22 11:22 Blood Culture (Wb) - Left Hand Blood Culture - Preliminary No growth in 48 hours. 06/18/22 11:20 Blood Culture (Wb) - Anticubital Left Blood Culture - Preliminary No growth in 48 hours. 06/18/22 11:55 Nasal Secretion SARS-CoV-2 & FLU Antigen (Rapid) - Final D/C Instructions Discharge Diet: Low fat / Low cholesterol Call your doctor if you observe: Fever of 101 or Higher, Shortness of breath, Dizziness, Fainting spells, Swelling in the ankles, Chest pain and Increased palpitations (irregular heartbeat) Meaningful Use Info Meaningful Use Diagnoses (Choose all that apply): None applicable Discharge Plan Admission Admit Date/Time: 06/18/22 13:39 Attending Provider: Cristiano Pena Primary Care Provider: Ever Martínez Consulting Providers: Yassine Hernandez Discharge Orders/Prescriptions Prescriptions: New cefdinir 300 mg capsule 300 mg PO Q12H Qty: 14 0RF Continued albuterol sulfate 90 mcg/actuation HFA aerosol inhaler 2 puff INHALATION .four times daily PRN (Reason: shortness of breath or wheezing) Label Comments: inhale 2 puffs by mouth and INTO THE LUNGS four times a day if needed for cough gabapentin 300 mg capsule 300 mg PO TID PRN (Reason: nerve pain) trazodone 50 MG tablet 50 mg PO QHS tizanidine 4 MG tablet 4 mg PO QHS fenofibrate micronized 134 MG capsule 134 mg PO DAILY lisinopril 40 MG tablet 40 mg PO DAILY buprenorphine-naloxone 1 EACH film 1.5 ea sublingual TID ergocalciferol (vitamin D2) 50,000 UNIT capsule 50,000 unit PO Q7D Rx Instructions: TAKES ON FRIDAY Referrals / Follow Up: Ever Martínez MD [Primary Care Provider] - Within 1 Week Disposition Disposition (needs filled in before D/C Order can be placed): Home, Self Care Charges/Coding Visit Charges Inpatient E&M: 36294 Disch Hosp
[2022-06-21] MEDS: Fenofibrate 145 MG Tablet PO (09:00)
[2022-06-21] MEDS: Acetaminophen 325 MG Tablet 650 MG PO (09:00)
[2022-06-21 09:10] VITALS: BP 116/70; PULSE 72; RESP 16; TEMP 37.3; O2SAT 98
--- NOTE | 2022-06-21 10:00 | CASEMGMT ---
Pt states no concerns with going home at time of discharge. Pt voices no further questions/concerns/needs. Jalil ARELLANO CM
--- NOTE | 2022-06-21 10:20 | PHA.DC.MC ---
Pharmacy Service has performed discharge medication reconciliation and counseling for this patient. The patient was counseled on the following discharge medications and changes in medications for homegoing were reviewed. 1. CEFDINIR The Reason for Use, instructions for use, and potential side effects were reviewed for all new medications. The patient's questions regarding all of their medications were answered. The patient was able to verbally demonstrate an understanding of their discharge medications. Home Medications buprenorphine 2 mg-naloxone 0.5 mg sublingual film 1.5 ea sublingual TID addiction 12/28/18 fenofibrate micronized 134 mg capsule 134 mg PO DAILY cholesterol 12/28/18 lisinopril 40 mg tablet 40 mg PO DAILY blood pressure 12/28/18 tizanidine 4 mg tablet 4 mg PO QHS sleep 12/28/18 trazodone 50 mg tablet 50 mg PO QHS sleep 12/28/18 ergocalciferol (vitamin D2) 1,250 mcg (50,000 unit) capsule 50,000 unit PO Q7D SUPPLEMENT 05/20/19 albuterol sulfate 90 mcg/actuation aerosol inhaler 2 puff inhalation .four times daily PRN shortness of breath or wheezing 08/30/20 gabapentin 300 mg capsule 300 mg PO TID PRN nerve pain 06/06/22 cefdinir 300 mg capsule 300 mg PO Q12H #14 caps 06/21/22 The patient's discharge medication list was reviewed for discrepancies and discrepancies were resolved.
== END 2022-06-21 11:00 | disposition home or self-care (01) | DRG 603 ==
LOC: ED 13:09 → PCU 13:57
PROVIDERS: Admitting Provider Internal Medicine; Emergency Provider Emergency Medicine; PCP Family Medicine; Visit Provider Family Medicine
DX: L03.116 Cellulitis of left lower limb (principal); N17.9 Acute kidney failure, unspecified; M06.9 Rheumatoid arthritis, unspecified; I95.9 Hypotension, unspecified; E78.5 Hyperlipidemia, unspecified; I10 Essential (primary) hypertension; E86.0 Dehydration; M54.9 Dorsalgia, unspecified; Z87.891 Personal history of nicotine dependence; Z79.899 Other long term (current) drug therapy; G89.29 Other chronic pain
CPT/HCPCS: 36415; 71045; 80048; 80053; 81001; 83605; 85025; 85610; 85730; 87040; 87086; 87428; 93005; 93971; 97802; 99285; 99406; J7030; J7040; A4216; J0696

== ENCOUNTER 2022-08-16 14:30 | Outpatient (RCR) | payer OTHER, SELFPAY ==
--- NOTE | 2022-06-11 12:59 | HP.PTEVAL ---
Patient's Visit Information YURI LANDERS Jr. is a 47 year old M referred to Physical Therapy by Dr. Vijay Parnell MD with a diagnosis of Rupture of left distal biceps tendon. Date of Evaluation: 06/10/22 Physical Therapist: IESHA Barone - Visit Plan Frequency: 1-2x /Week Duration: 6 Weeks Plan: 1-2X/ week for 6 weeks for L scapular, RC strength and work on L bicep for lower weights but trying to increase endurance of the L bicep muscle with HEP and modalities per order if the pt has pain - Subjective Pt has something torn in his Bicep on the L and has a bump there. In order to have surgery he has to have PT and get it approved through insurance. He has been trying to build it up and it won't strengthen. 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 He gets more fatigue and worn out than pain. He is Right handed. He injured it last winter around Nov. he was picking up a piece of wood and it was instant pain and got black and blue. His first Dr wanted him to see if it would fix itself but it just won't even doing resistance curls. He has a follow up after he does PT. L but fatigues after a few sets.... then it is a arm for quite awhile after. - Pain L bicep pain Pain Intensity (Out of 10): 0 - Objective R handed. R 155# L 159#. R shoulder flex 21.3# and L shoulder flex 19.8#. R bicep 24.1# and L bicep 11.7#. R tricep 20.9# and L tricep 25.4#. L elbow flex: 134 degrees. R elbow flex: 134 degrees. Pt has equal B elbow extension and flexion - Balance/Special Test Scores Quick DASH Score: 22.7250 - Goals Goal 1:: I HEP Goal Time Frame: 4-6 Weeks Goal 2:: increase L elbow flex strength (at the time of the eval: R bicep 24.1# and L bicep 11.7#) Goal Time Frame: 4-6 Weeks Goal 3:: Be able to use his L bicep picking up heavy things at work and not feel the severe fatigue for a few hours after he does the activity Goal Time Frame: 4-6 Weeks - Rehabilitation Potential Rehabilitation Potential: Good - Anticipated Interventions Patient/Client Instruction: Educate patient on: Condition, Plan of Care For the Purpose of:: To decrease pain, To increase ROM, To improve nutrient delivery to tissue, To improve muscle performance and motor function, To improve ability to perform ADL's, To increase tolerance to activity/condition/position, To improve performance and independence with ADL's, To improve ability of physical actions for home/community/work/leisure, To improve health of tissue Therapeutic Exercise to Include: Strength training, Postural training, Flexibilty training, Active ROM, Scapular Strength/Stabilization For the Purpose of:: To decrease pain, To increase ROM, To improve nutrient delivery to tissue, To improve muscle performance and motor function, To improve ability to perform ADL's, To increase tolerance to activity/condition/position, To improve performance and independence with ADL's, To decrease level of supervision to perform tasks, To improve ability of physical actions for home/community/work/leisure, To improve health of tissue, To increase flexibility/ROM Manual Therapy Techniques to Include: Passive ROM, Soft tissue mobilization For the Purpose of:: To increase ROM IF ES: Yes - prn Cryotherapy (ice pack, ice massage): Yes - prn Thermo therapy (hot pack): Yes - prn Ultrasound (thermal/non thermal): Yes - prn For the Purpose of:: To decrease pain Thank you for the opportunity to evaluate your patient. For Medicare and Medicare HMO plans, please review the plan of care and approve it. It will need to be FAXED BACK to us at [phone] for Medicare purposes. For Medicare only, by signing this I certify the plan of care. Please let me know if there are questions or concerns regarding this plan of care. Physician Signature: Date:
--- NOTE | 2022-08-16 15:02 | HP.PTDCSUM ---
It has been my pleasure to treat YURI LANDERS Jr. referred by Dr. Vijay Parnell MD, with the diagnosis of Rupture of left distal biceps tendon for a total of 5 visit(s). Discharge Date: 08/16/22 Please see the following information for a summary of their discharge status. Subjective: Pt reports that he still works out but it is not getting any stronger. He was out for 4 weeks and in the hospital for cellulitis. He is frustrated and wants to go back to Dr and he is not getting any stronger L bicep pain Pain Intensity (Out of 10): 0 % Improvement: 0 Objective/Function: Bicep strength. 17.7# L 24.6 R. Pt was doing bicep curls on the L and his arm started to give out. He rested and was able to continue but it just gives out on him. pt felt very fatigued on the L bicep after therapy today. Goal 1:: I HEP Goal Progress: Goal Met Goal 2:: increase L elbow flex strength (at the time of the eval: R bicep 24.1# and L bicep 11.7#) Goal Progress: Progressing Goal 3:: Be able to use his L bicep picking up heavy things at work and not feel the severe fatigue for a few hours after he does the activity Goal Progress: Not Progressing Plan: Pt to return back to Dr as he has been here and doing things at home and not getting much stronger. He will return back to his Dr. DC PT. Discharge Comments: DC PT to HEP If there are questions or concerns regarding this patient's physical therapy, please feel free to call me at [phone]. Thank you for the referral of this patient. Sincerely, Dennise Lim, MPT Balance/Gait/Functional tests - Balance/Special Test Scores Quick DASH Score: [phone]
== END 2022-08-16 19:00 | disposition home or self-care (01) ==
LOC: PT 14:30
PROVIDERS: PCP Family Medicine; Referring Provider Orthopaedic Surgery Sports Medicine; Visit Provider Orthopaedic Surgery Sports Medicine
DX: S46.212D Strain of muscle, fascia and tendon of other parts of biceps, left arm, subsequent encounter (principal); X58.XXXD Exposure to other specified factors, subsequent encounter
CPT/HCPCS: 97110; 97161

== ENCOUNTER → 2025-03-11 | Outpatient (CLI) | payer BC, SELFPAY ==
--- NOTE | 2025-03-11 13:30 | MRI_ITS ---
PROCEDURE: SPINE CERVICAL (ROUTINE) 03/11/2025 REASON FOR EXAM: PAIN, RADICULAR PAIN TECHNIQUE: Multiplanar and multisequence images were obtained without IV contrast administration. COMPARISON: none FINDINGS: Straightening of cervical curve denoting myospasm. No vertebral fracture/acute dislocation noted. The vertebral body heights are normal. The examined vertebral bodies and posterior neural elements appear intact with no fractures. Normal craniometric measures of the craniovertebral junction No obvious marrow degenerative signal. Modio 0. Variable degrees of reduced bright T2 signal of the intervertebral discs denoting their desiccation. C1-C2: Atlantodens interval is preserved. Odontoid process and atlantoaxial joint appear normal. C2-C3: There is no significant disc pathology. Normal morphology of the ligamentum flava. No arthropathy of the uncovertebral and zygapophyseal joints. No significant spinal canal stenosis noted. C3-C4: a diffuse disc bulge inclined to the left side with a 1.5 mm central focal posterior disc protrusion seen indenting the theca encroaching upon the related neural exit foramina inducing mild left and minimal right exiting nerve roots compression. C4-C5: a diffuse disc bulge inclined to the left side indenting the theca encroaching upon the related neural exit foramina inducing mild left and minimal right exiting nerve roots compression. C5-C6: a diffuse disc bulge with a 2.5 mm left foraminal protrusion indenting the theca encroaching upon the related neural exit foramina inducing moderate to marked left and mild right exiting nerve roots compression. C6-C7: There is no significant disc pathology. Normal morphology of the ligamentum flava. No arthropathy of the uncovertebral and zygapophyseal joints. No significant spinal canal stenosis noted. C7-T1: There is no significant disc pathology. Normal morphology of the ligamentum flava. No arthropathy of the uncovertebral and zygapophyseal joints. No significant spinal canal stenosis noted. Normal appearance of the examined cervical cord and cranio-cervical junction. No marrow infiltrative lesions. No paraspinal soft tissue masses. MRI/Spine Cervical (Routine) IMPRESSION: Straightening of cervical curve denoting myospasm. No fractures/acute dislocation noted. C3-C4: a diffuse disc bulge inclined to the left side with a 1.5 mm central foc al posterior disc protrusion inducing mild left and minimal right exiting nerve roots compression. C4-C5: a diffuse disc bulge inclined to the left side inducing mild left and mi nimal right exiting nerve roots compression. C5-C6: a diffuse disc bulge with a 2.5 mm left foraminal protrusion inducing mo derate to marked left and mild right exiting nerve roots compression. [facility]
== END | disposition home or self-care (01) ==
PROVIDERS: PCP Family Medicine; Referring Provider Student in an Organized Health Care Education/Training Program; Visit Provider Student in an Organized Health Care Education/Training Program
DX: M54.12 Radiculopathy, cervical region (principal)
CPT/HCPCS: 72141

== ENCOUNTER 2025-04-21 15:00 | Outpatient (RCR) | payer BC, SELFPAY ==
--- NOTE | 2025-04-18 16:14 | HP.PTEVAL ---
Patient's Visit Information Visit Information Visit Information: YURI LANDERS Jr. is a 50 year old M referred to Physical Therapy by VEGA Jensen with a diagnosis of Cervical spine radiculopathy. Date of Evaluation: 04/18/25 Physical Therapist: Fabián López, PT, ATC Visit Plan Frequency: 1x/Week Duration: 4-6 Weeks Plan: Postural edu, US to c/s for pain, and CTx (todays 16#/8#, 30 msec/10 sec, 10 min) Subjective Subjective: Pt reports he has had neck pain for 3 months. Pt notes his pain had an insidious onset in nature. Pt reports he has tingling and numbness that radiates into his L UE and fingers. Pt notes he has had x-rays and MRI which revealed 3 bulging discs. Pt notes he has been told he needs to have surgery, but has a lot of work he needs to get finished before he could have surgery. 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 Pt reports occasional sleep difficulty secondary to pain. Pt reports he is still able to perform his work duties, he just experiences L UE radiculopathy. Pt is R hand dominant. Pt denies any prior Hx of neck pain. 0/10 pain while sitting her at rest, 10/10 pain at worst. Pain Neck pain: Pain Intensity (Out of 10): 0 Pain Intensity Range: 9 Objective Objective: Neuro: B UE sensation is WNL to light touch. MMT: L UE is grossly rated at 4/5 when compared to R UE which is rated at 5/5 throughout. ROM: retraction, R SB, R rot, and extension are all moderately limited and provoke pain. All other motions are WNL Repeated movements: RRIS and RPIS peripheralized sx's SPecial tests: Pos apley compression and distraction tests. Goals Goal 1:: Decrease neck pain x 50% to aid with sleep Goal Time Frame: 4-6 Weeks Goal 2:: Decrease the frequency and intensity of L UE radiculopathy x 50% to aid with work duties Goal Time Frame: 4-6 Weeks Goal 3:: I with HEP Goal Time Frame: 4-6 Weeks Rehabilitation Potential Physical Therapy Diagnosis: Pt has neck pain, L UE radiculopathy, and limited cervical spine ROM secondary to cervical spine disc pathology. Rehabilitation Potential: Good Anticipated Interventions Patient/Client Instruction: Educate patient on: Condition and Plan of Care For the Purpose of:: To improve self management Ultrasound (thermal/non thermal): Yes Intermittent cervical traction: Yes For the Purpose of:: To decrease pain Text: Thank you for the opportunity to evaluate your patient. For Medicare and Medicare HMO plans, please review the plan of care and approve it. It will need to be FAXED BACK to us at [phone] for Medicare purposes. For Medicare only, by signing this I certify the plan of care. Please let me know if there are questions or concerns regarding this plan of care. Physician Signature: Date:
--- NOTE | 2025-06-14 09:20 | HP.PT.NRP ---
Patient Information Patient Information: YURI LANDERS Jr. was seen in my office for initial evaluation on 04/18/25. The following Plan of Care was established for this patient: POC Established Initial Frequency: 1x/Week Initial Duration: 4-6 Weeks Anticipated Interventions Patient/Client Instruction: Educate patient on: Condition and Plan of Care For the Purpose of:: To improve self management Ultrasound (thermal/non thermal): Yes Intermittent cervical traction: Yes For the Purpose of:: To decrease pain Last Seen Last Seen: This patient was last seen in our office . Pertinent comments regarding their Physical therapy will appear below: Pt has not returned in greater than 30 days and is discontinued at this time. At this point I will be discontinuing this patient from physical therapy. I would be happy to see this patient again in the future if found appropriate by the physician. Thank you! Fabián López, PT, ATC
== END 2025-04-21 19:00 | disposition home or self-care (01) ==
LOC: PT 15:00
PROVIDERS: PCP Family Medicine; Referring Provider Student in an Organized Health Care Education/Training Program; Visit Provider Student in an Organized Health Care Education/Training Program
DX: M54.12 Radiculopathy, cervical region (principal)
CPT/HCPCS: 97012; 97035; 97161

== ENCOUNTER 2025-10-03 10:54 | Day surgery (SDC) | payer BC, SELFPAY ==
[2025-09-20 16:37] LABS: Hematocrit 44.3 % (40-54); Hemoglobin 14.7 g/dL (13.0-16.5); Immature Granulocytes Count 0.030 X10^3/uL (0.0-0.0); Mean Corp Hgb Conc 33.2 g/dL (32-36); Mean Corpuscular Volume 86.9 fL (80-94); Mean Platelet Vol. 9.7 fl (6.2-12.0); NRBC Flagged by Analyzer 0 % (0-5); Platelet Count 294 K/mm3 (150-450); RBC Distribution Width CV 12.5 % (11.6-14.6); RBC Distribution Width SD 39.8 fl (35.1-43.9); Red Blood Count 5.10 M/mm3 (4.6-6.2); White Blood Count 8.5 K/mm3 (4.4-11.0)
[2025-09-20 17:26] LABS: AST(SGOT) 30 U/L (<=37); Alanine Aminotransfer ALT/SGPT 33 U/L (<=46); Albumin, Serum 4.6 g/dL (3.5-5.0); Alkaline Phosphatase 61 U/L (40-129); Anion Gap 14 (5-15); BUN 14 mg/dL (4-19); BUN/Creat Ratio 9.5 RATIO (10-20); Calcium,Total 9.7 mg/dL (7.6-11.0); Carbon Dioxide 23.5 mmol/L (21.0-32.0); Chloride 101 mmol/L (98-108); Cholesterol 176 mg/dL (<=200); Globulin 2.9 g/dL (2.2-4.2); Glucose 92 mg/dL (70-99); Low Density Lipoprotein Calc. 98 mg/dL; Magnesium 2.1 mg/dL (1.5-2.2); Potassium 4.4 mmol/L (3.3-5.1); Triglycerides 174 mg/dL; Very Low Density Lipoprotein 35 mg/dL (5-40); cholesterol:hdl ratio screen 3.67
[2025-10-03] VITALS (12 sets, daily range): BP systolic 130–168; BP diastolic 84–99; PULSE 80–107; RESP 16; TEMP 36.1–36.4; O2SAT 93–97; BMI 38.9
[2025-10-03] MEDS: Lactated Ringers 1,000 ML 15 ML IV (11:36)
[2025-10-03] MEDS: Magnesium 1 GM over 15 mins IV (11:37)
--- NOTE | 2025-10-03 12:03 | PRE.ANES_ITS ---
ASA Classification* ASA Classification ASA Classification: 2 Assessment & Plan Anesthesia* Anesthesia Assessment Anesthesia Assessment: Discussed sedation and/or anesthesia options, risks, benefits, and alternatives with patient/parents/legal guardian/POA. Questions invited. The patient/parents/legal guardian/POA seems to understand and agrees to proceed with anesthesia plan. Reviewed the physical assessment, medical history, allergy history and patient home medications list prior to surgery/procedure/anesthetic and documented any changes. Performed airway and anesthesia risk assessments. Anesthesia Type Anesthesia Type: General History Source History Obtained from:: Patient and Chart Anesthesia Focused Assessment* Temperature: 97.0 F Pulse Rate: 80 Blood Pressure: 130/87 Respiratory Rate: 16 Pulse Ox: 96 Oxygen Delivery Method: Room Air Airway Assessment Mouth opens: >3 cm Mallampati Score: I Teeth Condition: Implants (Patient has permanent implants. They are all tight.) Neck Range of motion (ROM): Limited ROM (Slight Decrease) Labs Anesthesia Preop lab: CBC WBC, (4.4-11.0) 8.5 K/mm3 09/20/25, 16:14 RBC, (4.6-6.2) 5.10 M/mm3 09/20/25, 16:14 Hgb, (13.0-16.5) 14.7 g/dL 09/20/25, 16:14 Hct, (40-54) 44.3 % 09/20/25, 16:14 Plt Count, (150-450) 294 K/mm3 09/20/25, 16:14 CHEMISTRY Potassium, (3.3-5.1) 4.4 mmol/L 09/20/25, 16:14 Sodium, (133-145) 138 mmol/L 09/20/25, 16:14 Magnesium, (1.5-2.2) 2.1 mg/dL 09/20/25, 16:14 BUN, (4-19) 14 mg/dL 09/20/25, 16:14 Creatinine, (0.70-1.20) 1.43 mg/dL H 09/20/25, 16:14 Glucose, (70-99) 92 mg/dL 09/20/25, 16:14 POC Glucose, (74-106) 140 mg/dL H Today, 11:39 TSH, (0.300-4.200) 2.470 uIU/mL 09/20/25, 16:14 COAG PT, (11.7-14.9) 14.3 SECONDS 06/18/22, 11:20 Pre-Assessment Diagnosis/Proposed Procedure Planned Operative Procedure(s): (N/A) Cervical Disc Arthroplasty C5-6 Anesthesia History 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 When Was Last Pacemaker Check QUESTION #4 FULL TEXT: You/Your Family Experience fever (hyperthermia) with Anesthesia Last Oral Intake Last Oral intake: Last Oral Intake NPO since 09:00 10/03/25 11:27 Meds taken in AM with sips of Yes 10/03/25 11:27 water? Meds patient instructed to see med list 10/03/25 11:27 take am of surgery Any additional information?: Yes NPO since: 09:00 (Patient had preop Ensure at 9 AM.) Meds taken in AM with sips of water?: Yes PONV PONV - electric organ checker: PONV - electric organ checker Female No 09/19/25 08:34 HX of Motion Sickness No 09/19/25 08:34 HX of N/V After Surgery No 09/19/25 08:34 Non-Smoker Yes 09/19/25 08:34 Duration of Surgery greater Yes 09/19/25 08:34 than 60 minutes Number of Risk Factors 2 09/19/25 08:34 PONV Score Moderate Risk 09/19/25 08:34 Height & Weight Height & Weight: Anesthesia: Height & Weight Height 5 ft 10 in 10/03/25 11:27 Weight: 123 kg 10/03/25 11:27 Body Mass Index (BMI) 38.9 10/03/25 11:27 Respiratory Assessment Respiratory Assessment - electric organ checker: Respiratory Tract Infection Hx - electric organ checker Hx Respiratory Tract Infection No 09/19/25 08:34 STOP Sleep Apnea STOP Sleep Apnea - electric organ checker: STOP Sleep Apnea - electric organ checker Hx Hypertension Yes: controlled with med 09/19/25 08:34 Hx Sleep Apnea No 09/19/25 08:34 CPAP No 04/21/25 14:46 BIPAP No 04/21/25 14:46 Do you snore loudly (louder No 09/19/25 08:34 than talking or can be heard Do you often feel tired/ No 09/19/25 08:34 fatigued/ sleepy during daytime? Has anyone observed you stop No 09/19/25 08:34 breathing during sleep? STOP Results Negative 09/19/25 08:34 QUESTION #5 FULL TEXT : Do you snore loudly (louder than talking or can be heard through closed doors)? 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 Specify any problems Hx of Preganancy in last 3 N/A 09/19/25 08:34 Months Nurse Filling Out Transfusion NBUCHER 09/19/25 08:34 & Questions: Date: 09/19/25 09/19/25 08:34 Time: 08:35 09/19/25 08:34 Patient unable to answer at this time (ie. confused, unrespo /Reproduction History /Reproductive History - electric organ checker: /Reproductive Hx- electric organ checker Hx Now No 09/19/25 08:34 Gestational Age (in weeks): EDC: Hx Hx Para Hx Section SAB No 09/19/25 08:34 Does the father of the baby or his family experience fever w Father of the baby Malignant Hypertension history comment Active Medications Active Medications: Current Medications Generic Name Dose Route Start Last Admin Trade Name Freq PRN Reason Stop Dose Admin Acetaminophen 1,000 mg 10/03/25 12:45 10/03/25 11:37 Acetaminophen 500 Mg Tablet PO 10/03/25 12:46 1,000 mg PREOP ONE Administration Dexamethasone Sodium Phosphate 8 mg 10/03/25 12:45 Dexamethasone 10 Mg/Ml Vial IV 10/03/25 12:46 INTRAOP ONE Dexamethasone Sodium Phosphate 4 mg 10/03/25 12:45 Dexamethasone 4 Mg/Ml Vial IV 10/03/25 12:46 POSTOP ONE Cefazolin Sodium 2 gm/ Sodium 110 mls @ 150 mls/hr 10/03/25 12:45 Chloride IV 10/03/25 13:28 INTRAOP ONE Tranexamic Acid 1,000 mg/ 110 mls @ 440 mls/hr 10/03/25 12:45 Sodium Chloride IV 10/03/25 12:59 INTRAOP ONE Tranexamic Acid 1,000 mg/ 110 mls @ 440 mls/hr 10/03/25 12:45 Sodium Chloride IV 10/03/25 12:59 INTRAOP ONE Magnesium Sulfate 1 gm/ 102 mls @ 408 mls/hr 10/03/25 12:45 10/03/25 11:37 Dextrose IV 10/03/25 12:59 408 mls/hr PREOP ONE Administration Lactated Ringer's 1,000 mls @ 15 mls/hr 10/03/25 11:00 10/03/25 11:36 IV 15 mls/hr .Q48H MAIDA Administration Insulin Human Lispro 1 - 6 unit 10/03/25 12:45 Insulin Lispro 100 Unit/Ml Insuln.Pen SC 10/03/25 18:00 Q4H PRN PRN BG>/= 180, SEE PROTOCOL Protocol PFSH Medical History MRSA (methicillin resistant staph aureus) culture positive Wears contact lenses Wears glasses Arthritis High cholesterol Former smoker History of echocardiogram Strain of left biceps muscle Left elbow pain Hypertension Hx of gastroesophageal reflux (GERD) Rupture of left distal biceps tendon H/O: substance abuse Bulging lumbar disc Facet arthritis of lumbar region Home Medications ?Medication ?Instructions ?Recorded ?Last Taken ?Type buprenorphine 2 mg-naloxone 0.5 mg 1.5 ea sublingual T ID pain 12/28/18 Unknown History sublingual film fenofibrate micronized 134 mg 134 mg PO DAILY choleste rol 12/28/18 06/02/19 History capsule lisinopril 40 mg tablet 40 mg PO DAILY blood pressur e 12/28/18 06/02/19 History tizanidine 4 mg tablet 4 mg PO TID sleep 12/28/18 U nknown History trazodone 50 mg tablet 50 mg PO QHS sleep 12/28/18 Unknown History ergocalciferol (vitamin D2) 1,250 50,000 unit PO Q7D S UPPLEMENT 05/20/19 05/29/19 History mcg (50,000 unit) capsule gabapentin 300 mg capsule 300 mg PO TID PRN nerve pain 06/06/22 Unknown History acetaminophen 500 mg tablet 1,000 mg PO DAILY 09/19/25 10/03/25 06:00 History (Acetaminophen Extra Strength) Allergy/AdvReac Type Severity Reaction Status Date / Time No Known Allergies Allergy Verified 10/03/25 11:22 Family History Mother Lung cancer Brain tumor Grandmother Rheumatoid arthritis Grandfather Rheumatoid arthritis Other CVA (cerebral vascular accident) Cancer Hypertension Surgical History History of lumbar fusion H/O right wrist surgery H/O rotator cuff surgery Total knee replacement status History of hip replacement Social History household members: spouse and children housing: house current occupational status: employed Smoking Status: Former smoker Tobacco: How many years used: 20 alcohol intake: never substance use type: does not use and painkillers what type of physical activity do you participate in: aerobics and weight training frequency: 5-6 times per week do you feel safe at home: Yes Review of Systems (Anesthesia) ROS Narrative System reviewed and no additional complaints, except as documented.
--- NOTE | 2025-10-03 13:22 | HP.PCM_ITS ---
History and Physical MR#: [id number] Acct: [id number] Name: YURI LANDERS Jr. Rep #: [id number] : 1975 Provider: Dr. Jorge Hernandez MD Age/Sex: 50/M Location: [facility] [place].[facility] Status: Signed Intake Vital Signs 04/21/2514:46 09/23/2513:14 Height 5 ft 10 in 5 ft 10 in Weight: 260 lb BMI 37.3 Intake Visit Reasons: cervical spine Chief Complaint: Cervical spine pre op Accompanied by: Is patient in pain?: Yes Pain scale (1-10): 5 Allergies No Known Allergies Allergy (Verified 09/23/25 13:18) Medications ?Medication ?Instructions ?Recorded ?Confirmed ?Type buprenorphine 2 mg-naloxone 0.5 mg 1.5 ea sublingual TID pain 12/28/1803/13 History sublingual film fenofibrate micronized 134 mg 134 mg PO DAILY cholesterol 12/28/1803/13 History capsule lisinopril 40 mg tablet 40 mg PO DAILY blood pressure 12/28/18 1 11/24/24 History tizanidine 4 mg tablet 4 mg PO TID sleep 12/28/18 09/23/25 Hist ory trazodone 50 mg tablet 50 mg PO QHS sleep 12/28/18 09/23/25 His tory ergocalciferol (vitamin D2) 1,250 50,000 unit PO Q7D SUPPLEMENT 05/20/19 09/23/25 History mcg (50,000 unit) capsule gabapentin 300 mg capsule 300 mg PO TID PRN nerve pain 06/06/22 History acetaminophen 500 mg tablet 1,000 mg PO DAILY 09/19/25 09/23/25 Hist ory (Acetaminophen Extra Strength) Have you fallen in the past year?: No PFSH Medical History MRSA (methicillin resistant staph aureus) culture positive Wears contact lenses Wears glasses Arthritis High cholesterol Former smoker History of echocardiogram Strain of left biceps muscle Left elbow pain Hypertension Hx of gastroesophageal reflux (GERD) Rupture of left distal biceps tendon H/O: substance abuse Bulging lumbar disc Facet arthritis of lumbar region Surgical History History of lumbar fusion H/O right wrist surgery H/O rotator cuff surgery Total knee replacement status History of hip replacement Family History Mother Lung cancer Brain tumor Grandmother Rheumatoid arthritis Grandfather Rheumatoid arthritis Other CVA (cerebral vascular accident) Cancer Hypertension Social History household members: spouse and children housing: house current occupational status: employed Smoking Status: Former smoker Tobacco: How many years used: 20 alcohol intake: never substance use type: does not use and painkillers what type of physical activity do you participate in: aerobics and weight training frequency: 5-6 times per week do you feel safe at home: Yes HPI cervical spine Details: This documentation accurately reflects the service provided and the decisions made by me, Dr. Jorge Hernandez MD 09/23/25 1314. Part of today?s visit was documented by José Miguel Houser MA, acting as scribe. YURI LANDERS is a 50 year old M here today for cervical spine pre for C5-6 disc replacement. Patient states that he doesn't have any pain today. He would like to go over surgery details. The patient is a 50 year old male presenting for pre-operative discussion regarding his upcoming cervical spine surgery. He reports neck pain that occurs with turning and radicular pain that shoots down his left arm to his fingertips, primarily involving the thumb and adjacent fingers, when he does too much. He denies any symptoms on the right side. His symptoms have remained in the same area over the last six months, though he notes his neck pain has become more pronounced recently. 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 His past surgical history includes a lower back fusion on December 15, 2020. His medical history is notable for hypertension, managed with lisinopril, and hypercholesterolemia, managed with fenofibrate. He denies a history of diabetes or smoking. Attestation: Documentation on this patient encounter was supported using ambient scribe technology/ voice AI technology. The patient consented to recording for the purpose of documenting the encounter. Provider reviewed content of the generated note prior to signature. 04/07/25: YURI LANDERS is a 50 year old M here today for MRI review of the cervical spine. He denies any changes to his symptoms. He states that the medrol dose boubacar did not give him any relief. Pain has been going on for the last 10 weeks. The patient has seen the chiropractor Dr. Chacon for 2 visits without any significant benefit as of yet. HPI from 02/14/25: YURI LANDERS is a 50 year old M here today for cervical spine and pinched nerve. Patient is having pain in the back of the neck and goes down the shoulder blade to the forearm. The pain is sharp, and gets numbness and tingling going down the arm. This has been going on for 3 weeks. No pain 3 weeks ago. Says that it has worsened over this 3-week period. No injury or trauma to the area. Tilting his head up makes the pain worse, he gets a sharp shooting pain. Turning his head from side to side makes the pain worse. Patient uses a TENs unit, it helps a little bit. Patient gets a tingling and numbness in his left arm and in the fingers. The pain extends from the left side of his neck to the top of his shoulder and scapula and then extends down the left arm to all his fingers equally. 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 No prior PT for his neck. The patient has been doing at home guided stretches and exercises which has been guided by his son who is a chiropractor. The patient has been doing these guided exercises and stretches once a day over the last 3 weeks with no benefit. The patient son has also been trying traction on him with no benefit. Patient denies any recent neck injections, he did do lumbar injections in the past about 4-[address] Cueto for his lumbar back which did not give him any relief. No balance or dexterity issues. No diabetes, no heart or lungs, no blood thinners. Patient is a former smoker but he quit in 2020. Patient saw Dr. Humphries in the past who did an L4-5 fusion in 2020. No current lower back issues. Says that he is healed really well after the fusion surgery. ROS ROS Narrative Review of Systems - Musculoskeletal: Reports neck pain with turning and a history of lower back fusion. - Neurological: Reports pain radiating down the left arm to the fingertips. - Cardiovascular: Reports a history of hypertension. - Endocrine: Reports a history of hypercholesterolemia. - Constitutional: Denies diabetes and smoking. Ortho Exam General General: Yes no acute distress Neurologic: Yes alert and Yes oriented x3 Spine SPINE TESTING CERVICAL THORACIC LUMBAR Musculoskeletal Strength 0=absent - 5=normal Details: Neurological exam of the upper extremities shows 5X5 power. Normal sensation across all dermatomes. No hyperreflexia. No midline or paraspinal tenderness. Physical examination of the lumbar back and belly shows well healed midline incision. Exam Narrative Results - MRI: Cervical spine MRI from earlier this year reviewed, showing a disc problem at C5-6 on the left side causing nerve pressure. - Pre-operative Testing: Labs and EKG have been completed. Coding Level of Care Code Off vis,est,level 4 Diagnoses Cervical radiculopathy M54.12 Segmental dysfunction of cervical region M99.01 Segmental and somatic dysfunction of thoracic region M99.02 Degeneration of intervertebral disc at C5-C6 level M50.322 Mid-cervical spinal level: C5-C6 Spinal region: mid-cervical Additional Codes Intake - Is patient in pain?: Yes (1125F) Time Spent (min) 35 Assessment and Plan Assessment and Plan (1) Cervical radiculopathy: Status: Acute (2) Segmental dysfunction of cervical region: Status: Acute (3) Segmental and somatic dysfunction of thoracic region: Status: Acute (4) Degenerative disc disease: Status: Chronic Qualifiers: Mid-cervical spinal level: C5-C6 Spinal region: mid-cervical Qualified Code(s): M50.322 - Other cervical disc degeneration at C5-C6 level Plan Assessment and Plan Again reviewed prior x-rays show a straightening of the normal cervical lordosis, only mild degenerative changes, no instability on dynamic views. Reviewed MRI from March 11, 2025 which showed C5-6 diffuse disc bulge resulting in moderate left and mild right foraminal stenosis. 1. Cervical Disc Disorder with Radiculopathy at C5-6 - The patient has persistent left-sided radicular symptoms consistent with his MRI findings of a C5-6 disc issue causing nerve compression. Conservative measures have provided incomplete relief. He is scheduled for surgery on October 03. - Proceed with a scheduled anterior cervical discectomy and arthroplasty (disc replacement) at C5-6. A disc replacement was chosen over a fusion to maintain mobility and reduce the risk of future adjacent-level surgery. Intraoperative spinal cord monitoring will be utilized. A detailed discussion was held regarding the surgical procedure, hospital course, and potential risks, including infection, bleeding/hematoma, dysphagia, nerve/spinal cord injury (stretch injury vs. permanent deficit), hardware failure, adjacent segment disease, and general anesthetic risks like DVT/PE and pneumonia. He will likely be discharged the same day if stable. Post-operative management will include a cervical collar (full-time for 24 hours, then for comfort for a week), activity restrictions (no heavy lifting or excessive twisting for 3 months), and driving restrictions (at least 7-10 days). He will be off work for 3 months. Pain will be managed with Tylenol, an NSAID (pending renal function), and a muscle relaxant. He will begin outpatient physical therapy at his 2-week follow-up. 2. Hypertension - The patient's blood pressure is reportedly well-controlled with lisinopril. - Continue current medication. The patient has a home blood pressure monitor and was advised to monitor his readings post-operatively, as steroids may be administered which can elevate blood pressure. 3. Hypercholesterolemia - Stable on fenofibrate. - Continue current medication. 4. Pre-operative Status - The patient has completed his pre-operative labs and EKG and has spoken with the hospital. - He is cleared to proceed with surgery as scheduled. Patient Instructions - Your neck surgery is scheduled for October 03. - You will wear a neck collar full-time for the first 24 hours after surgery, then only as needed for comfort for the first week. Try to stop using it completely after one week to allow your neck to move. - You may have some trouble swallowing for a few days. Eating soft foods can help. - For the first week, sleep in a recliner or with your head propped up on pillows to help reduce swelling. - You will need to take 3 months off from your job. During these 3 months, do not lift heavy items or do excessive twisting or bending of your neck. - Stay active by walking to prevent blood clots. Light housework is okay. - Do not drive for at least 7 to 10 days after surgery. You cannot drive while wearing the neck collar or taking muscle relaxant medication. - You will be sent home with prescriptions for Tylenol, an anti-inflammatory medication, and a muscle relaxant for pain and spasm control. - You will start outpatient physical therapy at your 2-week follow-up appointment to regain your neck's range of motion. - You will have follow-up appointments at 2 weeks, 6 weeks, 3 months, and 1 year after your surgery. Discussed this procedure in detail and explained the risks, benefits and alternatives. The risks of surgery include but are not limited to infection, bleeding, injury to nerves and vessels, dysphagia, dysphonia, hematoma formation, need for further surgery, Luisana syndrome, recurrent laryngeal nerve injury, persistent pain, persistent numbness and weakness, DVT, pulmonary embolism, pneumonia, atelectasis, prosthesis malposition, hypermobility, adjacent segment degeneration, spinal cord injury, nerve root injury, cardiopulmonary event. Answered all questions to the patient?s satisfaction. Patient understands and agrees to proceed with surgery. Consent was signed .Follow up two weeks post operatively or sooner if pain, swelling, numbness or associated symptoms, or concerns develop.All questions answered. Patient in agreement of plan.
[2025-10-03] MEDS: Lactated Ringers 1,000 ML 1000 ML IV (13:57)
[2025-10-03] MEDS: fentaNYL 100 MCG/2 ML Ampul IV (13:58)
[2025-10-03] MEDS: Lidocaine 1% (5 ml sdv) 5 ML Vial 10 ML IV (13:58)
[2025-10-03] MEDS: Midazolam 2 MG/2 ML Syringe IV (13:58)
--- NOTE | 2025-10-03 14:05 | RAD_ITS ---
PROCEDURE: CERV SPINE 2 OR 3 VIEWS 10/03/2025 REASON FOR EXAM: CERVICAL DISC ARTHROPLASTY C5-6 TECHNIQUE: Procedure Code: RADSPCL Modality: DX Procedure: CERV SPINE 2 OR 3 VIEWS Radiation time 14.4 seconds. Radiation dose: 2.39 mGy. COMPARISON: MRI of the cervical spine on 03/11/2025. FINDINGS: Intraoperative fluoroscopic images for cervical disc arthroplasty at C5-C6. RAD/Cerv Spine 2 or 3 Views IMPRESSION: Intraoperative fluoroscopic images. Reading [facility]
[2025-10-03] MEDS: Cefazolin 1 GM/5 ML Vial 3 GM IV (15:29)
[2025-10-03] MEDS: TRANEXAMIC ACID 1,000 MG/10 ML ML 1001 MG IV (16:16)
--- NOTE | 2025-10-03 16:52 | PCM.POST.ANE ---
Anesthesia: Postop Eval I Current Vital Signs Temperature: 97.2 F Pulse Rate: 107 Blood Pressure: 159/99 Respiratory Rate: 16 Pulse Ox: 93 Oxygen Delivery Method: Nasal Cannula Oxygen Flow Rate (L/min): 4 Assessment Airway patent: Yes Spontaneous unlabored respirations: Yes Mental status: Awake and Calm nausea: No Vomiting: No Anesthesia Complication: No Fluid Hydration Crystalloid volume administer (ml): 1,000 Total IV fluid infused: 1,000 Progress Note Anesthesia document: Postop Eval 1 completed: Yes
--- NOTE | 2025-10-03 17:19 | PCM.OPRPT ---
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 [employer] Site Manager: Genny Knowles Tasks completed by director of first impressions: Closing, Removing tissue, Implanting device, Hemostasis: Electrocautery and Retracting Type of Anesthesia: General RN Documented Start/Stop Times: Operation Date: 10/03/25 12:45 Case Time Into Pre-Op 10/03/25 10:59 Anesthesia Start 10/03/25 13:50 Into Room 10/03/25 13:50 Procedure Start 10/03/25 15:24 Procedure End 10/03/25 16:40 Anesthesia End 10/03/25 16:52 Out of Room 10/03/25 16:52 Into Recovery 10/03/25 16:55 Procedure Start Time: 15:24 Procedure Stop Time: 16:40 Select all DRAINS/GRAFTS/IMPLANTS that apply: Prosthetic device Prosthetic device details: ZimVie Mobi-C cervical disc replacement prosthesis Estimated Blood Loss: 20 cc Specimen collected: No Description of surgery: Preoperative diagnosis: C5-6 disc degeneration with stenosis, with radiculopathy Postoperative diagnosis: Same Name of procedure: C5-6 anterior cervical disc replacement - Cervical disc replacement [], CPT code 54758 Attending surgeon: Jorge Hernandez M.D. Anesthesia: Gen. endotracheal Estimated blood loss: 20 mL Complications: None Instrumentation used: Arm[employer] Mobi-C cervical disc replacement implants Indications: The patient is a pleasant 50-year-old gentleman who presented with symptoms of neck pain, progressive left upper extremity radiating pain numbness and weakness. MRI revealed C5-6 left foraminal disc herniation. After prolonged period of nonsurgical treatment, patient requested surgical intervention. All risks and benefits of the procedure were explained to the patient. The risks include but are not limited to infection, bleeding, injury to nerves and vessels, vertebral artery injury, spinal cord injury, paralysis, vocal cord paralysis, injury to esophagus, need for further procedures, adjacent segment degeneration, heterotopic ossification, implant loosening, implant failure, DVT, pulmonary embolism, cardiopulmonary event, etc. Procedure: The patient was identified in the preoperative suite using unique patient identifiers. Skin was marked consent was taken and all questions were answered. The patient was then brought back to the operative room and a timeout was performed. General endotracheal anesthesia was given. Intraoperative neuro monitoring leads were applied. The patient was carefully positioned supine on a regular OR table. A lateral x-ray with a C-arm was done to identify the level and to define the incision. The anterior neck was then prepped and draped in the usual fashion. A final timeout was then performed. A transverse skin incision was then taken to the left of midline 2 fingerbreadths above the clavicle. Subcutaneous tissue was then divided with Bovie. Platysma was identified and cut transversely with scissors. The fascial interval between the sternocleidomastoid and the larynx was developed. Omohyoid was identified and mobilized medially and inferiorly. Carotid sheath was laterally while the esophagus with the larynx was retracted medially to reach the prevertebral fascia. All prevertebral layers of fascia were bluntly dissected and a [place] pin was placed into one of the bodies. A lateral C-arm image was used to confirm the correct level. Once this was done longus coli muscle was elevated on both sides at and above and below C5-6 disc. Shadow line retractors were then placed with great care to protect the esophagus. A long handle knife was then used to perform annulotomy at C5-6. Disc fragments were removed with the pituitary. [place] pins were placed in C5 and C6 for disc distraction. AP view confirmed midline placement of [place] pins. Curettes were utilized to remove cartilage from the endplates. Discectomy was performed laterally up to the uncovertebral joints. Adequate decompression was performed, PLL was thinned out and resected. Foramina were decompressed without taking down the uncovertebral processes. Soft disc fragments were noted in the canal which were removed piecemeal. Nerve hook was utilized to confirm complete decompression. Once the disc space was prepared, trials of various sizes were utilized. Thorough irrigation was given. Mobi-C anterior cervical disc replacement implant of size 17 x 17 mm with 6 mm height was then placed under fluoroscopic guidance. Adequate positioning was noticed on AP and lateral views. Thorough irrigation was again given. Hemostasis was achieved with FloSeal and bipolar cautery. Closure was done with 3-0 Vicryl for the platysma and subcutaneous tissue layers and 4-0 Monocryl for the skin. Steri-Strips were applied and dressing was done with 4 x 4 gauze and Tegaderm. A cervical collar was then applied. The patient was then woken up from anesthesia extubated and taken to PACU in stable condition. Intraoperative neuro monitoring was performed throughout this procedure. Motor evoked potentials were run periodically. All potentials remained at baseline throughout the procedure. I was present for the entire surgery and performed the surgery myself. [facility] Advocate Genny Knowles PA-C. My physician technical staff assistant was a vital part of this case. They were important in appropriate retraction during the case, and protection of soft tissues during the procedure. Their intimate knowledge of the case and my steps aided in safe and expedient completion of the procedure as well as appropriate position of the patient during the surgery. They were also vital in assisting with closure under my direct supervision. Surgical Findings: See operative note Complications Complications: No
--- NOTE | 2025-10-03 21:14 | PCM.POSTANE2 ---
Anesthesia Postop Eval I Sum Postop Eval Completion status Anesthesia document: Postop Eval 1 completed: Yes Anesthesia Postop Eval I Summary Anesthesia Postop Eval I Summary: Anesthesia Postop Eval I: Assessment Summary Airway patent Yes 10/03/25 21:14 Spontaneous unlabored Yes 10/03/25 21:14 respirations Mental status Awake,Calm 10/03/25 21:14 nausea No 10/03/25 21:14 Vomiting No 10/03/25 21:14 Anesthesia Postop Eval I: Fluid Summary Crystalloid volume administer 1,000 10/03/25 21:14 (ml) Colloids volume administered ( ml) Blood Product volume administered (ml) Total IV fluid infused 1,000 10/03/25 21:14 Anesthesia Postop Eval I: Summary Notes Anesthesia Complication No 10/03/25 21:14 Anesthesia Complication Comment: Post-operative progress note Anesthesia: Postop Eval II Evaluation Mental status: Awake and Calm Pain Level: 2 nausea: No Vomiting: No Complications Anesthesia Complication: No
== END 2025-10-03 18:35 | disposition home or self-care (01) ==
LOC: SDC 10:57 → AC 10:58
PROVIDERS: PCP Family Medicine; Referring Provider Orthopaedic Surgery Orthopaedic Surgery of the Spine; Visit Provider Orthopaedic Surgery Orthopaedic Surgery of the Spine
PROC: (CPT 22856; principal; 2025-10-03 12:15)
DX: M50.122 Cervical disc disorder at C5-C6 level with radiculopathy (principal); M99.01 Segmental and somatic dysfunction of cervical region; M99.02 Segmental and somatic dysfunction of thoracic region; I10 Essential (primary) hypertension; E78.00 Pure hypercholesterolemia, unspecified; Z98.1 Arthrodesis status; Z79.899 Other long term (current) drug therapy; Z87.891 Personal history of nicotine dependence
CPT/HCPCS: 22856; 00600; 36415; 72040; 76000; 80053; 80061; 82962; 83036; 83735; 84443; 85025; 86850; 86900; 86901; 87077; 87081; A4648; A4216; J2405; J3475